=== PATIENT | female | born 1985 | race Caucasian/White ===

== ENCOUNTER 2016-04-29 20:17 | Emergency (ER) | payer OTHER ==
[2016-04-29] MEDS ORDERED: diphenhydrAMINE INJ 50 MG/ML VIAL IVP STA (20:32)
[2016-04-29] MEDS ORDERED: KETOROLAC 60 MG/2 ML VIAL IVP STA (20:32)
[2016-04-29] MEDS ORDERED: METOCLOPRAMIDE 10 MG/2 ML VIAL IVP STA (20:32)
[2016-04-29] MEDS ORDERED: SODIUM CHLORIDE 0.9% 1,000 ML IV ONE (20:32)
[2016-04-29] MEDS ORDERED: METOCLOPRAMIDE 10 MG/2 ML VIAL IVP ONE (20:40)
[2016-04-29] MEDS ORDERED: KETOROLAC 30 MG/ML VIAL ONE (20:40)
[2016-04-29] MEDS ORDERED: diphenhydrAMINE INJ 50 MG/ML VIAL ONE (20:40)
== END 2016-04-29 22:45 | disposition home or self-care (01) ==
DX: B34.9 Viral infection, unspecified (principal); K21.9 Gastro-esophageal reflux disease without esophagitis; F32.9 Major depressive disorder, single episode, unspecified; F41.9 Anxiety disorder, unspecified; L30.9 Dermatitis, unspecified; Z79.899 Other long term (current) drug therapy; Z32.02 Encounter for pregnancy test, result negative

== ENCOUNTER 2017-04-04 19:46 | Emergency (ER) | payer OTHER ==
[2017-04-04 20:03] LABS: BILIRUBIN,URINE NEGATIVE (NEGATIVE); GLUCOSE, URINE (UA) NEGATIVE (NEGATIVE); KETONES,URINE (UA) NEGATIVE (NEGATIVE); LEUKOCYTE ESTERASE, URINE NEGATIVE (NEGATIVE); NITRITE,URINE NEGATIVE (NEGATIVE); OCCULT BLOOD,URINE NEGATIVE (NEGATIVE); PROTEIN,URINE NEGATIVE (NEGATIVE); UROBILINOGEN,URINE 0.2 (NORMAL) E.U./dL (NORMAL)
[2017-04-04 20:11] LABS: CLARITY,URINE CLEAR (CLEAR); HCG UR QUAL NEGATIVE
[2017-04-04] MEDS ORDERED: KETOROLAC 60 MG/2 ML VIAL IVP STA (20:28)
[2017-04-04 20:32] LABS: BASOPHILS % (AUTO) 0.4 %; EOSINOPHILS # (AUTO) 0.1 10^3/uL (0.0-0.7); EOSINOPHILS % (AUTO) 2.8 %; HGB - HEMOGLOBIN 11.9 g/dL (12.0-16.0); LYMPHOCYTES # (AUTO) 1.2 10^3/uL (1.5-3.5); LYMPHOCYTES % (AUTO) 31.8 %; MEAN CORPUSCULAR HEMOGLOBIN 30.5 pg (27.0-31.0); MEAN CORPUSCULAR HGB CONC 33.4 g/dL (32.0-36.0); MEAN CORPUSCULAR VOLUME 91.6 fL (81.0-99.0); MEAN PLATELET VOLUME 9.2 fL (7.9-10.8); MONOCYTES # (AUTO) 0.5 10^3/uL (0.0-1.0); MONOCYTES % (AUTO) 13.1 %; NEUTROPHILS % (AUTO) 51.9 %; PLT - PLATELET COUNT 152 10^3/uL (130-450); RED BLOOD COUNT 3.89 10^6/uL (4.20-5.40); RED CELL DISTRIBUTION WIDTH 12.5 % (12.0-15.0); WHITE BLOOD COUNT 3.9 x10^3/uL (4.8-10.8)
[2017-04-04 20:41] LABS: ALBUMIN 4.4 g/dL (3.2-5.5); ALBUMIN/GLOBULIN RATIO 1.3 (1.0-2.2); BILIRUBIN,TOTAL 0.2 mg/dL (0.2-1.0); CALCIUM 9.4 mg/dL (8.5-10.3); CREATININE 0.9 mg/dL (0.4-1.0); TOTAL PROTEIN 7.9 g/dL (6.7-8.2)
[2017-04-04] MEDS ORDERED: IOPAMIDOL-300 100 ML VIAL ONE (20:53)
[2017-04-04] MEDS ORDERED: IOPAMIDOL-300 100 ML VIAL IVP ONE (21:04)
--- NOTE | 2017-04-04 21:13 | ED Physician Documentation ---
PD HPI ABD PAIN - Stated complaint Stated Complaint: ABD PX - Chief complaint Chief Complaint: Abd Pain - History obtained from History obtained from: Patient - History of Present Illness Timing - onset: Chronic Timing - details: Gradual onset, Still present Quality: Cramping, Aching Location: Periumbilical Worsened by: Position, Palpation Associated symptoms: Nausea. No: Fever, Vomiting, Diarrhea, Constipation Similar symptoms before: No diagnosis Recently seen: Not recently seen - Additional information Additional information: Patient is a 31 year old female with a history of anxiety and depression who is presenting to the emergency department for a one year history of intermittent abdominal pain. patient states that the pain comes and goes. she also reports a 50 lb weight loss over the last year. Patient reports that she has a family history of multiple cancers. Patient has gone to the [facility] multiple times but she reports they tell her its gas and send her home. Patient reports that tonight she felt like her abdomen was distended and that her belly button was sticking out so she cam in tonight. Review of Systems Constitutional: denies: Fever, Chills Eyes: reports: Reviewed and negative Ears: reports: Reviewed and negative Nose: reports: Reviewed and negative Throat: reports: Reviewed and negative Cardiac: denies: Chest pain / pressure, Palpitations Respiratory: denies: Dyspnea, Cough, Wheezing GI: reports: Abdominal Pain, Abdominal Swelling, Nausea. denies: Vomiting, Constipation, Diarrhea : denies: Dysuria, Frequency, Hesitancy Skin: reports: Lesions Musculoskeletal: denies: Neck pain, Back pain, Extremity pain Neurologic: denies: Generalized weakness, Focal weakness Psychiatric: reports: Depressed, Anxiety Endocrine: reports: Weight loss Immunocompromised: denies: Immunocompromised PD PAST MEDICAL HISTORY - Past Medical History Past Medical History: Yes Cardiovascular: None Respiratory: Asthma Neuro: None Endocrine/Autoimmune: None GI: GERD : None HEENT: None Psych: Depression, Anxiety Musculoskeletal: Chronic back pain Derm: Eczema - Past Surgical History Past Surgical History: No - Present Medications Home Medications: Ambulatory Orders Medication Instructions Recorded Confirmed Fexofenadine HCl [Linda Allergy] 180 mg PO DAILY 09/13/15 04/04/17 Bcp 1 tab PO DAILY 04/04/17 Buspirone HCl 1 tab PO DAILY 04/04/17 04/04/17 Citalopram Hydrobromide 1 tab PO DAILY 04/04/17 04/04/17 [Citalopram HBr] Esomeprazole Magnesium 1 cap PO DAILY 04/04/17 04/04/17 Ondansetron Odt [Zofran] 4 mg TL Q6H PRN #20 tablet 04/04/17 Sulfamethoxazole/Trimethoprim 1 tab PO BID 04/04/17 04/04/17 [Sulfamethoxazole-Tmp Ds Tablet] raNITIdine [Zantac] 1 tab PO DAILY 04/04/17 04/04/17 - Allergies Allergies/Adverse Reactions: Allergies Allergy/AdvReac Type Severity Reaction Status Date / Time Latex, Natural Rubber Allergy Intermediate Rash Verified 04/04/17 19:51 Penicillins Allergy Intermediate Emesis Verified 04/04/17 19:51 Tetanus Vaccines and Toxoid Allergy Intermediate Hives Verified 04/04/17 19:51 [Tetanus Vaccines & Toxoid] tioconazole [From Monistat 1] Allergy Intermediate Itching Verified 04/04/17 19: 51 - Social History Does the pt smoke?: No Smoking Status: Never smoker Does the pt drink ETOH?: No Does the pt have substance abuse?: No - Immunizations Immunizations are current?: Yes - POLST Patient has POLST: No PD ED PE NORMAL - Vitals Vital signs reviewed: Yes - General General: Alert and oriented X 3, No acute distress - HEENT HEENT: Atraumatic - Neck Neck: Supple, no meningeal sign - Cardiac Cardiac: RRR, No murmur - Respiratory Respiratory: No respiratory distress - Abdomen Abdomen: Soft - Extremities Extremities: No deformity - Neuro Neuro: Alert and oriented X 3, No motor deficit, No sensory deficit, Normal speech Eye Opening: Spontaneous Motor: Obeys Commands Verbal: Oriented GCS Score: 15 PD ED PE EXPANDED - Abdomen Abdomen: Tender to palpation, Periumbilical, Generalized/diffuse. No: Rebound, Guarding - Derm Derm: Other (acne all over patient's back, no superimposed infection) Results - Vitals Vitals: Vital Signs - 24 hr 04/04/17 04/04/17 19:49 21:20 Temperature 37.2 C Heart Rate 84 81 Respiratory 18 16 Rate Blood Pressure 155/93 H 130/76 O2 Saturation 100 100 Oxygen O2 Source Room air - Labs Labs: Laboratory Tests 04/04/17 04/04/17 04/04/17 20:00 20:00 20:01 WBC 3.9 L RBC 3.89 L Hgb 11.9 L Hct 35.6 L MCV 91.6 MCH 30.5 MCHC 33.4 RDW 12.5 Plt Count 152 MPV 9.2 Neut # 2.0 Lymph # 1.2 L York # 0.5 Eos # 0.1 Baso # 0.0 Absolute Nucleated RBC 0.00 Nucleated RBC % 0.0 Sodium Potassium Chloride Carbon Dioxide Anion Gap BUN Creatinine Estimated GFR (MDRD) Glucose Calcium Total Bilirubin AST ALT Alkaline Phosphatase Total Protein Albumin Globulin Albumin/Globulin Ratio Lipase Urine Color STRAW Urine Clarity CLEAR Urine pH 6.0 Ur Specific Sanborn 1.010 1.010 Urine Protein NEGATIVE Urine Glucose (UA) NEGATIVE Urine Ketones NEGATIVE Urine Occult Blood NEGATIVE Urine Nitrite NEGATIVE Urine Bilirubin NEGATIVE Urine Urobilinogen 0.2 (NORMAL) Ur Leukocyte Esterase NEGATIVE Ur Microscopic Review NOT INDICATED Urine Culture Comments NOT INDICATED Urine HCG, Qual NEGATIVE 04/04/17 20:01 WBC RBC Hgb Hct MCV MCH MCHC RDW Plt Count MPV Neut # Lymph # York # Eos # Baso # Absolute Nucleated RBC Nucleated RBC % Sodium 136 Potassium 3.4 L Chloride 99 L Carbon Dioxide 24 Anion Gap 13.0 BUN 10 Creatinine 0.9 Estimated GFR (MDRD) 73 L Glucose 113 H Calcium 9.4 Total Bilirubin 0.2 AST 26 ALT 17 Alkaline Phosphatase 51 Total Protein 7.9 Albumin 4.4 Globulin 3.5 Albumin/Globulin Ratio 1.3 Lipase 21 L Urine Color Urine Clarity Urine pH Ur Specific Sanborn Urine Protein Urine Glucose (UA) Urine Ketones Urine Occult Blood Urine Nitrite Urine Bilirubin Urine Urobilinogen Ur Leukocyte Esterase Ur Microscopic Review Urine Culture Comments Urine HCG, Qual - Rads (name of study) ct abd pelvis Radiology: Final report received (simple cyst or left ovary, no other intraabdominal pathology) PD MEDICAL DECISION MAKING - ED course Complexity details: reviewed old records, reviewed results, re-evaluated patient , considered differential, d/w patient ED course: patient was seen and examined at bedside. IV access was gained and labs were drawn. Urine was collected. patient was treated with toradol and imaging was ordered. Patient's pain improved with the toradol. Patient's imaging showed no acute abnormalities. Patient's pain is likely at least in part somatization of her stress and anxiety. patient was tearful when talking about raising three kids and working. Patient required no further work up and was stable for discharge with outpatient follow up. Departure - Departure Disposition: 01 Home, Self Care Clinical Impression: Abdominal pain Condition: Good Instructions: ED Abdominal Pain Unkn Cause Follow-Up: Jay Jay Crowell MD [Provider Admit Priv/Credential] - Within 1 week Prescriptions: Ondansetron Odt [Zofran] 4 mg TL Q6H PRN #20 tablet PRN Reason: Nausea / Vomiting Comments: Your diagnostics today were within normal limits. The next step in testing would be a colonoscopy. You should follow up with your doctor and see if you can follow up with a GI doctor. If not you can call Dr. Hu' office to schedule a colonoscopy. Your symptoms are also at least in part related to stress and anxiety. While I understand that it is hard to take time for yourself and counseling it is important.
--- NOTE | 2017-04-04 21:38 | CT Report ---
EXAM: CT ABDOMEN AND PELVIS EXAM DATE: 04/04/2017 09:15 PM. CLINICAL HISTORY: Abd pain, 50lb weight loss, family hx of breast ca. COMPARISONS: 01/27/2014. TECHNIQUE: Routine helical CT imaging was performed through the abdomen and pelvis. IV contrast: 100M L ISOVUE 300. Enteric contrast: No. Reconstructions: Coronal and sagittal. In accordance with CT protocol optimization, one or more of the following dose reduction techniques w ere utilized for this exam: automated exposure control, adjustment of mA and/or KV based on patient s ize, or use of iterative reconstructive technique. FINDINGS: Lung Bases: Unremarkable. Liver: Normal. No masses. Gallbladder/Bile Ducts: Unremarkable. Spleen: Normal. Pancreas: Normal. Adrenal Glands: Normal. Kidneys: Normal. No masses or hydronephrosis. Peritoneal Cavity/Bowel: No free fluid, free air or adenopathy. No masses or acute inflammatory proce ss. The appendix is well visualized and normal. Pelvic Organs: Cystic left adnexal lesion measuring 7.3 x 4.1 x 5.1 cm. No internal septations or nod ularity. Retroverted uterus. Right adnexa is unremarkable. Urinary bladder not well distended but oth erwise unremarkable. Vasculature: No aneurysms or other significant abnormality. Bones: No significant abnormality. Other: None. IMPRESSION: 1. No acute abnormality or definite neoplasm. 2. Simple appearing cystic left adnexal lesion measuring 7.3 x 4.1 x 5.1 cm. Recommend further evalua tion with ultrasound. [facility] Referring Provider Line: [phone] SITE ID: [id number]
[2017-04-04 22:15] VITALS: BP 124/86
== END 2017-04-04 22:20 | disposition home or self-care (01) ==
LOC: ED 19:46
DX: R10.33 Periumbilical pain (principal); R63.4 Abnormal weight loss; R11.0 Nausea; F41.9 Anxiety disorder, unspecified; F32.9 Major depressive disorder, single episode, unspecified; J45.909 Unspecified asthma, uncomplicated; K21.9 Gastro-esophageal reflux disease without esophagitis
CPT/HCPCS: 36415; 74177; 80053; 81003; 81025; 83690; 85025; 96374; 99283; 99284; Q9967; 81001; 84702; 87086

== ENCOUNTER 2017-04-29 10:10 | Emergency (ER) | payer OTHER ==
[2017-04-29 10:17] VITALS: BP 140/87
[2017-04-29] MEDS ORDERED: DEXAMETHASONE 10 MG/ML VIAL PO STA (10:27)
--- NOTE | 2017-04-29 10:29 | ED Physician Documentation ---
PD HPI URI - Stated complaint Stated Complaint: HEAD CONGESTION - Chief complaint Chief Complaint: Heent - History obtained from History obtained from: Patient - History of Present Illness Timing - onset: How many days ago (3) Timing duration: Days (3) Timing details: Gradual onset Pain level max: 6 Pain level now: 5 Associated symptoms: Fever (subjective), Ear pain (L ear), Nasal congestion, Sinus pain, Sore throat. No: Dry cough, Productive cough, Chest pain, Dyspnea Contributing factors: Sick contact Improves by: Rest Worsened by: Activity, Breathing Similar symptoms before: Has not had sx before Recently seen: Not recently seen Review of Systems Ears: reports: Ear pain Nose: reports: Rhinorrhea / runny nose, Congestion Throat: reports: Sore throat GI: denies: Vomiting, Diarrhea : denies: Now EGA Skin: denies: Rash Musculoskeletal: denies: Neck pain, Back pain Neurologic: denies: Headache PD PAST MEDICAL HISTORY - Past Medical History Cardiovascular: None Respiratory: Asthma Neuro: None Endocrine/Autoimmune: None GI: GERD : None HEENT: None Psych: Depression, Anxiety Musculoskeletal: Chronic back pain Derm: Eczema - Past Surgical History Past Surgical History: No - Present Medications Home Medications: Ambulatory Orders Medication Instructions Recorded Confirmed Fexofenadine HCl [Linda Allergy] 180 mg PO DAILY 09/13/15 04/04/17 Buspirone HCl 1 tab PO DAILY 04/04/17 04/04/17 Citalopram Hydrobromide 1 tab PO DAILY 04/04/17 04/04/17 [Citalopram HBr] Esomeprazole Magnesium 1 cap PO DAILY 04/04/17 04/04/17 Ondansetron Odt [Zofran] 4 mg TL Q6H PRN #20 tablet 04/04/17 Sulfamethoxazole/Trimethoprim 1 tab PO BID 04/04/17 04/04/17 [Sulfamethoxazole-Tmp Ds Tablet] raNITIdine [Zantac] 1 tab PO DAILY 04/04/17 04/04/17 Clindamycin HCl [Clindamycin 300MG 300 mg PO Q6H #28 capsule 04/29/17 CAP] - Allergies Allergies/Adverse Reactions: Allergies Allergy/AdvReac Type Severity Reaction Status Date / Time Latex, Natural Rubber Allergy Intermediate Rash Verified 04/29/17 10:17 Penicillins Allergy Intermediate Emesis Verified 04/29/17 10:17 Tetanus Vaccines and Toxoid Allergy Intermediate Hives Verified 04/29/17 10:17 [Tetanus Vaccines & Toxoid] tioconazole [From Monistat 1] Allergy Intermediate Itching Verified 04/29/17 10: 17 - Social History Does the pt smoke?: No Smoking Status: Never smoker Does the pt drink ETOH?: No Does the pt have substance abuse?: No - Immunizations Immunizations are current?: Yes - POLST Patient has POLST: No PD ED PE NORMAL - Vitals Vital signs reviewed: Yes - General General: Alert and oriented X 3 - HEENT HEENT: PERRL, Ears normal, Moist mucous membranes, Other (Moderate posterior oropharyngeal erythema with copious tonsillar exudates. Uvula midline. Normal phonation. No trismus) - Neck Neck: Supple, no meningeal sign, Other (Shotty anterior lymphadenopathy) - Cardiac Cardiac: RRR - Respiratory Respiratory: No respiratory distress, Clear bilaterally - Abdomen Abdomen: Soft, Non tender, Non distended - Derm Derm: Warm and dry - Neuro Neuro: Alert and oriented X 3 - Psych Psych: Normal mood, Normal affect Results - Vitals Vitals: Vital Signs - 24 hr 04/29/17 10:14 Temperature 37.3 C Heart Rate 89 Respiratory 18 Rate Blood Pressure 140/87 H O2 Saturation 100 Oxygen O2 Source Room air - Labs Labs: Laboratory Tests 04/29/17 10:20 Group A Strep Rapid Negative PD MEDICAL DECISION MAKING - ED course Complexity details: reviewed results, re-evaluated patient, considered differential, d/w patient ED course: Patient is a 31-year-old female who presents to the emergency department with what appears to be streptococcal pharyngitis. Will place on clindamycin for home. Rapid strep is negative, but given the poor sensitivity and specificity of this test, will still treat with antibiotics. Patient counseled regarding signs and symptoms for which I believe and urgent re-evaluation would be necessary. Patient with good understanding of and agreement to plan and is comfortable going home at this time This document was made in part using voice recognition software. While efforts are made to proofread this document, sound alike and grammatical errors may occur. Departure - Departure Disposition: 01 Home, Self Care Clinical Impression: Strep pharyngitis Condition: Good Instructions: ED Strep Pharyngitis Poss Follow-Up: your,doctor in 1 week [Other] Prescriptions: Clindamycin HCl [Clindamycin 300MG CAP] 300 mg PO Q6H #28 capsule Comments: Take all antibiotics until gone. Return if you worsen. Forms: Activity restrictions Discharge Date/Time: 04/29/17 10:42
[2017-04-29] MEDS ORDERED: CHERRY SYRUP 10 ML UDC PO ONE (10:38)
== END 2017-04-29 10:42 | disposition home or self-care (01) ==
LOC: ED 10:10
DX: J02.0 Streptococcal pharyngitis (principal)
CPT/HCPCS: 87070; 87430; 99281; 99283; A9270

== ENCOUNTER 2017-04-30 19:36 | Emergency (ER) | payer OTHER, MEDICAID ==
[2017-04-30 19:43] VITALS: BP 138/89
[2017-04-30] MEDS ORDERED: diphenhydrAMINE 25 MG CAPSULE PO STA (21:31)
--- NOTE | 2017-04-30 21:33 | ED Physician Documentation ---
History of Present Illness - Stated complaint Stated Complaint: POSS ALLERGIC REACTION - Chief complaint Chief Complaint: Allergic Rx - History obtained from History obtained from: Patient - History of Present Illness Timing: Other (Seen here yesterday for symptoms consisting of a Left-sided sore throat, eye irritation on the left. Rapid strep and culture were negative. She was started on clindamycin and shortly after starting it developed itching of the neck and face without increased throat swelling or shortness of breath or wheezing. She had never had that antibiotic before.) Review of Systems Constitutional: denies: Fever, Chills Eyes: reports: Discharge, Irritation. denies: Loss of vision, Decreased vision Ears: denies: Loss of hearing, Ear pain Nose: reports: Rhinorrhea / runny nose, Congestion Throat: reports: Sore throat PD PAST MEDICAL HISTORY - Past Medical History Past Medical History: Yes Cardiovascular: None Respiratory: Asthma Neuro: None Endocrine/Autoimmune: None GI: GERD : None HEENT: None Psych: Depression, Anxiety Musculoskeletal: Chronic back pain Derm: Eczema Other Past Medical History: epigastric hernia ( having surgery on May 22) - Past Surgical History Past Surgical History: Yes - Present Medications Home Medications: Ambulatory Orders Medication Instructions Recorded Confirmed Fexofenadine HCl [Linda Allergy] 180 mg PO DAILY 09/13/15 04/04/17 Buspirone HCl 1 tab PO DAILY 04/04/17 04/04/17 Citalopram Hydrobromide 1 tab PO DAILY 04/04/17 04/04/17 [Citalopram HBr] Esomeprazole Magnesium 1 cap PO DAILY 04/04/17 04/04/17 Ondansetron Odt [Zofran] 4 mg TL Q6H PRN #20 tablet 04/04/17 Sulfamethoxazole/Trimethoprim 1 tab PO BID 04/04/17 04/04/17 [Sulfamethoxazole-Tmp Ds Tablet] raNITIdine [Zantac] 1 tab PO DAILY 04/04/17 04/04/17 Clindamycin HCl [Clindamycin 300MG 300 mg PO Q6H #28 capsule 04/29/17 CAP] - Allergies Allergies/Adverse Reactions: Allergies Allergy/AdvReac Type Severity Reaction Status Date / Time Latex, Natural Rubber Allergy Intermediate Rash Verified 04/30/17 19:44 Penicillins Allergy Intermediate Emesis Verified 03/08/18 19:44 Tetanus Vaccines and Toxoid Allergy Intermediate Hives Verified 04/30/17 19:44 [Tetanus Vaccines & Toxoid] tioconazole [From Monistat 1] Allergy Intermediate Itching Verified 04/30/17 19: 44 - Social History Does the pt smoke?: No Smoking Status: Never smoker Does the pt drink ETOH?: No Does the pt have substance abuse?: No - Immunizations Immunizations are current?: Yes - POLST Patient has POLST: No PD ED PE NORMAL - Vitals Vital signs reviewed: Yes - General General: Alert and oriented X 3, No acute distress - HEENT HEENT: Other (red conjunctiva on left without dischg. Tonsillar pillar especially on the left is red with tonsillar crypts.) - Neck Neck: Supple, no meningeal sign, No bony TTP - Derm Derm: No rash - Neuro Neuro: Alert and oriented X 3, Normal speech Results - Vitals Vitals: Vital Signs - 24 hr 04/30/17 19:41 Temperature 36.4 C L Heart Rate 87 Respiratory 18 Rate Blood Pressure 138/89 H O2 Saturation 100 Oxygen O2 Source Room air PD MEDICAL DECISION MAKING - ED course ED course: Strep test is negative so she can stop the antibiotics. Seems more like adenovirus at this juncture. Benadryl as needed for the itching. Departure - Departure Disposition: 01 Home, Self Care Clinical Impression: Viral syndrome Condition: Good Record reviewed to determine appropriate education?: Yes Instructions: ED Pharyngitis Viral Comments: Benadryl [id number] as needed for the itching. Do not take the antibiotic Anymore. Return if worse.
== END 2017-04-30 21:37 | disposition home or self-care (01) ==
LOC: ED 19:36
DX: B34.9 Viral infection, unspecified (principal)
CPT/HCPCS: 99282; A9270

== ENCOUNTER 2017-05-11 07:36 | Day surgery (SDC) | payer OTHER, MEDICAID ==
[2017-05-11] MEDS ORDERED: ceFAZolin 2 GM/50 ML 2 GM/50 ML BAG IV ONE (07:50)
[2017-05-11 08:05] LABS: HCG UR QUAL NEGATIVE
[2017-05-11] MEDS ORDERED: LACTATED RINGERS 1,000 ML IV ONE ×4 (08:20→12:54)
[2017-05-11] MEDS ORDERED: SCOPOLAMINE PATCH TOP ONE (08:34)
[2017-05-11] MEDS ORDERED: BUPIVACAINE 0.5%-EPI 1:200000 PF 10 ML VIAL ONE (08:38)
[2017-05-11] MEDS ORDERED: CLINDAMYCIN 600 MG/50 ML 50 ML IV ONE (09:49)
[2017-05-11] MEDS ORDERED: BUPIVACAINE 0.5%-EPI 1:200000 PF 30 ML VIAL SUBQ ONE ×2 (09:54→10:08)
[2017-05-11] MEDS ORDERED: ONDANSETRON 4 MG/2 ML VIAL IVP ONE (10:02)
[2017-05-11] MEDS ORDERED: GLYCOPYRROLATE 1 MG/5 ML VIAL IVP ONE (10:02)
[2017-05-11] MEDS ORDERED: LIDOCAINE-MPF 2% 5 ML VIAL IM ONE (10:02)
[2017-05-11] MEDS ORDERED: NEOSTIGMINE 1 MG/1 ML 10 ML MDV IVP ONE (10:02)
[2017-05-11] MEDS ORDERED: PROPOFOL 200 MG/20 ML VIAL IVP ONE (10:02)
[2017-05-11] MEDS ORDERED: fentaNYL 250 MCG/5 ML VIAL IVP ONE (10:02)
[2017-05-11] MEDS ORDERED: ROCURONIUM 50 MG/5 ML VIAL IVP ONE (10:02)
[2017-05-11] MEDS ORDERED: fentaNYL 100 MCG/2 ML VIAL ONE (10:41)
--- NOTE | 2017-05-11 10:55 | OPERATIVE REPORT ---
Operative Report - General Procedure Date: 05/11/17 Planned Procedure: repair of epigastric hernia Pre-Op Diagnosis: epigastric hernia Procedure Performed: Repair of epigastric hernia - Procedure Note Primary Surgeon: Dominik Anesthesia Provider: Dr. Chang Anesthesia Technique: General LMA - Other Other Information/Narrative: Findings: After obtaining informed consent from the patient she was brought into the operating room position on the operating table in the prone supine position taking noted pressure points. The patient was intubated by anesthesia. She was administered perioperative antibiotics. She was prepped and draped in usual sterile fashion and a timeout was taken according to protocol. An epigastric 3 cm incision was created just above the umbilicus. This was deepened down through the subcutaneous tissue until the epigastric hernia was encountered. The hernia sac was circumferentially dissected from the surrounding fatty tissue. This was performed circumferentially down to level of the fascia. The hernia was then completely reduced and the hernia defect was noted to be less than a centimeter in diameter. The anterior fascia was cleared from fatty tissue circumferentially approximately 1 cm. The defect was then closed primarily with a [id number] #2 Prolene suture. A small defect just at the umbilicus was also closed in a similar fashion with a #2 figure-of- eight Prolene suture. The subcutaneous tissue was irrigated and hemostasis achieved with electrocautery. 30 cc of lidocaine was injected in the soft tissue and fascia. The subcutaneous tissue was closed with 3-0 Vicryl and the skin was closed with 4-0 Monocryl. Dermabond was applied. The patient was extubated and taken to recovery room in stable condition. Estimated blood loss: Minimal Complications: None Specimens: None
[2017-05-11] MEDS ORDERED: KETOROLAC 30 MG/ML VIAL ONE (11:00)
[2017-05-11] MEDS ORDERED: ONDANSETRON 4 MG/2 ML VIAL ONE (11:11)
[2017-05-11 13:40] VITALS: BP 118/79
== END 2017-05-11 07:37 | disposition home or self-care (01) ==
LOC: SDS 07:36
PROVIDERS: ATTEND Surgery
PROC: 0WQF0ZZ Repair Abdominal Wall, Open Approach (ICD-10-PCS; principal; 2017-05-11 08:45)
DX: K43.9 Ventral hernia without obstruction or gangrene (principal); D41.9 Neoplasm of uncertain behavior of unspecified urinary organ; J45.909 Unspecified asthma, uncomplicated
CPT/HCPCS: 49560; 81025; J0690; J3010; J3490; J7120

== ENCOUNTER 2017-05-17 09:43 | Emergency (ER) | payer OTHER, MEDICAID ==
[2017-05-17 09:57] VITALS: BP 127/90
[2017-05-17] MEDS ORDERED: HYDROmorphone 1 MG/ML CARPUJECT IM STA (10:12)
--- NOTE | 2017-05-17 10:14 | ED Physician Documentation ---
History of Present Illness - Stated complaint Stated Complaint: POST OP COMP - Chief complaint Chief Complaint: Abd Pain - History obtained from History obtained from: Patient - History of Present Illness Timing: How many days ago (2) Pain level max: 8 Pain level now: 8 Improved by: nothing Worsened by: palpation - Additonal information Additional information: Patient is a 31-year-old female who presents to the emergency department approximately 6 days status post a abdominal hernia repair. She ran out of her Percocet 2 days ago and has had increasing pain since that time. No fevers. No vomiting. No constipation. No diarrhea. Pain is localized to the incision site. Has an appointment in 2-3 weeks with her surgeon. Review of Systems Constitutional: denies: Fever, Chills Nose: denies: Rhinorrhea / runny nose, Congestion Throat: denies: Sore throat Cardiac: denies: Chest pain / pressure Respiratory: denies: Cough GI: denies: Nausea, Vomiting, Diarrhea : denies: Dysuria, Frequency, Hesitancy, Now EGA Skin: denies: Rash Musculoskeletal: denies: Neck pain, Back pain Neurologic: denies: Headache PD PAST MEDICAL HISTORY - Past Medical History Cardiovascular: None Respiratory: Asthma Neuro: None Endocrine/Autoimmune: None GI: GERD, Other : None HEENT: None Psych: Depression, Anxiety, Panic attacks, Claustrophobia Musculoskeletal: None Derm: Psoriasis, Other - Past Surgical History Past Surgical History: Yes - Present Medications Home Medications: Ambulatory Orders Medication Instructions Recorded Confirmed Fexofenadine HCl [Linda Allergy] 180 mg PO DAILY 09/13/15 05/11/17 Buspirone HCl 1 tab PO DAILY 04/04/17 05/11/17 Citalopram Hydrobromide 1 tab PO DAILY 04/04/17 05/11/17 [Citalopram HBr] Esomeprazole Magnesium 1 cap PO DAILY 04/04/17 05/11/17 Ondansetron Odt [Zofran] 4 mg TL Q6H PRN #20 tablet 04/04/17 05/11/17 raNITIdine [Zantac] 1 tab PO DAILY 04/04/17 05/11/17 Norethindrone-Ethinyl Estrad 1 tab PO DAILY 05/06/17 05/11/17 [Alyacen 1-35-28 Tablet] Oxycodone HCl/Acetaminophen 1 - 2 each PO Q6H PRN #20 tablet 05/17/17 [Percocet 5-325 mg Tablet] - Allergies Allergies/Adverse Reactions: Allergies Allergy/AdvReac Type Severity Reaction Status Date / Time Latex, Natural Rubber Allergy Intermediate Rash Verified 04/30/17 19:44 Penicillins Allergy Intermediate Emesis Verified 04/30/17 19:44 Tetanus Vaccines and Toxoid Allergy Intermediate Hives Verified 04/30/17 19:44 [Tetanus Vaccines & Toxoid] tioconazole [From Monistat 1] Allergy Intermediate Itching Verified 04/30/17 19: 44 clindamycin Allergy Itching Verified 05/06/17 15:57 adhesive AdvReac Rash Verified 05/11/17 08:01 - Social History Does the pt smoke?: No Smoking Status: Never smoker Does the pt drink ETOH?: No Does the pt have substance abuse?: No - Immunizations Immunizations are current?: Yes - POLST Patient has POLST: No PD ED PE NORMAL - Vitals Vital signs reviewed: Yes - General General: Alert and oriented X 3, No acute distress, Well developed/nourished - HEENT HEENT: PERRL, Moist mucous membranes - Neck Neck: Supple, no meningeal sign - Cardiac Cardiac: RRR - Respiratory Respiratory: No respiratory distress, Clear bilaterally - Abdomen Abdomen: Normal bowel sounds, Soft, Non distended, Other (Mild tenderness palpation around the incision. Incisions clean dry and intact without signs of infection. No peritoneal signs. No swelling.) - Derm Derm: Warm and dry - Extremities Extremities: No edema, No calf tenderness / cord - Neuro Neuro: Alert and oriented X 3 - Psych Psych: Normal mood, Normal affect Results - Vitals Vitals: Vital Signs - 24 hr 05/17/17 09:55 Temperature 36.8 C Heart Rate 105 H Respiratory 20 Rate Blood Pressure 127/90 H O2 Saturation 99 Oxygen O2 Source Room air PD MEDICAL DECISION MAKING - ED course Complexity details: considered differential, d/w patient ED course: Patient is a 31-year-old female who has run out of her pain medications postoperatively. Her exam is relatively benign and is following the expected course for her surgery. I discussed the case with Dr. Crowell, general surgery on-call who recommends refilling her Percocet and follow-up closely in the office. Patient counseled regarding signs and symptoms for which I believe and urgent re-evaluation would be necessary. Patient with good understanding of and agreement to plan and is comfortable going home at this time This document was made in part using voice recognition software. While efforts are made to proofread this document, sound alike and grammatical errors may occur. Departure - Departure Disposition: 01 Home, Self Care Clinical Impression: Post-operative pain Condition: Good Instructions: ED Post Op Pain Follow-Up: ROOSEVELT LEHMAN MD [Provider Admit Priv/Credential] - Within 3 Days Prescriptions: Oxycodone HCl/Acetaminophen [Percocet 5-325 mg Tablet] 1 - 2 each PO Q6H PRN # 20 tablet PRN Reason: pain Comments: Follow-up closely with Dr. Lehman for further evaluation. Return if you worsen. Return especially for fevers, vomiting or pain that is not controlled with your medications. Do not drink alcohol or drive while on narcotic pain medicine. Note that many narcotic pain relievers also contain tylenol/acetaminophen. Please ensure that your total dose of acetaminophen from all sources does not exceed 3 grams (3000mg) per day. You may constipated on this medication, take a stool softener such as "Colace" twice a day while you are on it. Also recommend a amvy-qys-wojbzmr laxative such as senna or MiraLAX any day that you do not have a bowel movement. If you received narcotic pain medication in the emergency department, do not drive or operate machinery for the next 24 hours. Discharge Date/Time: 05/17/17 10:35
== END 2017-05-17 10:35 | disposition home or self-care (01) ==
LOC: ED 09:43
DX: G89.18 Other acute postprocedural pain (principal); Z76.0 Encounter for issue of repeat prescription; J45.909 Unspecified asthma, uncomplicated; K21.9 Gastro-esophageal reflux disease without esophagitis
CPT/HCPCS: 96372; 99283; J1170

== ENCOUNTER 2017-07-08 20:17 | Emergency (ER) | payer OTHER, MEDICAID ==
--- NOTE | 2017-07-08 20:44 | ED Physician Documentation ---
PD HPI ABD PAIN - Stated complaint Stated Complaint: ABD PX - Chief complaint Chief Complaint: Abd Pain - History obtained from History obtained from: Patient - History of Present Illness Timing - onset: Enter time (17:00), Today Timing - duration: Hours Timing - details: Abrupt onset, Waxing and waning Pain level now: 6 Quality: Pain Location: Epigastric, LUQ, Periumbilical Radiation: No: Chest, , Lower back, Left flank, Left shoulder, Right flank, Right shoulder, Upper back Improved by: Laying still Worsened by: Moving (particularly sitting up) Associated symptoms: Nausea. No: Fever, Vomiting, Diarrhea, Constipation, Dysuria Similar symptoms before: Other (similar to pain she was experiencing associated with epigastric hernia (repaired April 2017)) Recently seen: Surgery (Epigastric hernia repair April 2017) Review of Systems Constitutional: denies: Fever, Chills, Sweats Cardiac: reports: Reviewed and negative Respiratory: reports: Reviewed and negative GI: reports: Abdominal Pain, Nausea. denies: Vomiting, Constipation, Diarrhea : denies: Dysuria, Frequency Musculoskeletal: denies: Back pain PD PAST MEDICAL HISTORY - Past Medical History Cardiovascular: None Respiratory: Asthma Endocrine/Autoimmune: None GI: GERD, Other : None HEENT: None Psych: Depression, Anxiety, Panic attacks, Claustrophobia Musculoskeletal: None Derm: Psoriasis, Other - Past Surgical History Past Surgical History: Yes - Present Medications Home Medications: Ambulatory Orders Medication Instructions Recorded Confirmed Fexofenadine HCl [Linda Allergy] 180 mg PO DAILY 09/13/15 05/11/17 Buspirone HCl 1 tab PO DAILY 04/04/17 05/11/17 Citalopram Hydrobromide 1 tab PO DAILY 04/04/17 05/11/17 [Citalopram HBr] Esomeprazole Magnesium 1 cap PO DAILY 04/04/17 05/11/17 Ondansetron Odt [Zofran] 4 mg TL Q6H PRN #20 tablet 04/04/17 05/11/17 raNITIdine [Zantac] 1 tab PO DAILY 04/04/17 05/11/17 Norethindrone-Ethinyl Estrad 1 tab PO DAILY 05/06/17 05/11/17 [Alyacen 1-35-28 Tablet] Oxycodone HCl/Acetaminophen 1 - 2 each PO Q6H PRN #20 tablet 05/17/17 [Percocet 5-325 mg Tablet] Ondansetron Odt [Zofran] 4 mg TL Q6H PRN #14 tablet 07/08/17 oxyCODONE/ACET 5/325 [Percocet 5 1 - 2 each PO Q6H PRN #14 tablet 07/08/17 mg/325 mg] - Allergies Allergies/Adverse Reactions: Allergies Allergy/AdvReac Type Severity Reaction Status Date / Time Latex, Natural Rubber Allergy Intermediate Rash Verified 07/08/17 20:26 Penicillins Allergy Intermediate Emesis Verified 07/08/17 20:26 Tetanus Vaccines and Toxoid Allergy Intermediate Hives Verified 07/08/17 20:26 [Tetanus Vaccines & Toxoid] tioconazole [From Monistat 1] Allergy Intermediate Itching Verified 07/08/17 20: 26 clindamycin Allergy Itching Verified 07/08/17 20:26 adhesive AdvReac Rash Verified 07/08/17 20:26 - Social History Does the pt smoke?: No Smoking Status: Never smoker Does the pt drink ETOH?: No Does the pt have substance abuse?: No - Immunizations Immunizations are current?: Yes - POLST Patient has POLST: No PD ED PE NORMAL - Vitals Vital signs reviewed: Yes - General General: Alert and oriented X 3, Well developed/nourished, Other (mild-moderate painful distress) - Cardiac Cardiac: RRR, No murmur - Respiratory Respiratory: No respiratory distress, Clear bilaterally - Abdomen Abdomen: Normal bowel sounds, Soft, Non distended, Other (mild-moderate tenderness superior (cranial) to umbilicus in region of surgical scar. no swelling, no palpable mass) - Back Back: No CVA TTP - Derm Derm: Normal color, Warm and dry Results - Vitals Vitals: Vital Signs - 24 hr 07/08/17 07/08/17 07/08/17 20:24 22:22 23:14 Temperature 36.1 C L Heart Rate 87 77 72 Respiratory 18 18 16 Rate Blood Pressure 150/90 H 142/92 H 142/86 H O2 Saturation 100 99 98 Oxygen O2 Source Room air - Labs Labs: Laboratory Tests 07/08/17 07/08/17 21:15 21:15 WBC 7.2 RBC 4.00 L Hgb 12.1 Hct 36.1 L MCV 90.2 MCH 30.1 MCHC 33.4 RDW 13.9 Plt Count 212 MPV 8.5 Neut # 3.6 Lymph # 3.2 [place] # 0.3 Eos # 0.1 Baso # 0.0 Absolute Nucleated RBC 0.00 Nucleated RBC % 0.0 Sodium 138 Potassium 3.5 Chloride 102 Carbon Dioxide 28 Anion Gap 8.0 BUN 9 Creatinine 0.7 Estimated GFR (MDRD) 98 Glucose 99 Calcium 9.8 Total Bilirubin 0.6 AST 26 ALT 16 Alkaline Phosphatase 49 Total Protein 8.1 Albumin 4.4 Globulin 3.7 Albumin/Globulin Ratio 1.2 Lipase 30 - Rads (name of study) CT A/P Radiology: Prelim report reviewed, See rad report PD MEDICAL DECISION MAKING - ED course Complexity details: reviewed results, re-evaluated patient, considered differential, d/w patient Departure - Departure Disposition: 01 Home, Self Care Clinical Impression: Abdominal pain Condition: Good Instructions: ED Abdominal Pain Unkn Cause Follow-Up: ROSA M PADGETT MD [Primary Care Provider] - Enoch Turpin MD [Provider Admit Priv/Credential] - Prescriptions: Ondansetron Odt [Zofran] 4 mg TL Q6H PRN #14 tablet PRN Reason: Nausea / Vomiting oxyCODONE/ACET 5/325 [Percocet 5 mg/325 mg] 1 - 2 each PO Q6H PRN #14 tablet PRN Reason: Pain Discharge Date/Time: 07/09/17 00:18
[2017-07-08] MEDS ORDERED: ONDANSETRON 4 MG/2 ML VIAL IVP STA ×2 (21:06→22:09)
[2017-07-08] MEDS ORDERED: SODIUM CHLORIDE 0.9% 1,000 ML IV STA (21:06)
[2017-07-08] MEDS ORDERED: fentaNYL 100 MCG/2 ML VIAL IVP STA ×2 (21:07→22:08)
[2017-07-08] MEDS ORDERED: IOPAMIDOL-300 100 ML VIAL ONE (21:22)
[2017-07-08] MEDS ORDERED: IOPAMIDOL-300 50 ML VIAL ONE (21:23)
[2017-07-08 21:24] LABS: BASOPHILS % (AUTO) 0.2 %; EOSINOPHILS # (AUTO) 0.1 10^3/uL (0.0-0.7); EOSINOPHILS % (AUTO) 0.7 %; HGB - HEMOGLOBIN 12.1 g/dL (12.0-16.0); LYMPHOCYTES # (AUTO) 3.2 10^3/uL (1.5-3.5); LYMPHOCYTES % (AUTO) 43.9 %; MEAN CORPUSCULAR HEMOGLOBIN 30.1 pg (27.0-31.0); MEAN CORPUSCULAR HGB CONC 33.4 g/dL (32.0-36.0); MEAN CORPUSCULAR VOLUME 90.2 fL (81.0-99.0); MEAN PLATELET VOLUME 8.5 fL (7.9-10.8); MONOCYTES # (AUTO) 0.3 10^3/uL (0.0-1.0); MONOCYTES % (AUTO) 4.4 %; NEUTROPHILS # (AUTO) 3.6 10^3/uL (1.5-6.6); NEUTROPHILS % (AUTO) 50.8 %; PLT - PLATELET COUNT 212 10^3/uL (130-450); RED CELL DISTRIBUTION WIDTH 13.9 % (12.0-15.0); WHITE BLOOD COUNT 7.2 x10^3/uL (4.8-10.8)
[2017-07-08 21:36] LABS: ALBUMIN 4.4 g/dL (3.2-5.5); ALBUMIN/GLOBULIN RATIO 1.2 (1.0-2.2); BILIRUBIN,TOTAL 0.6 mg/dL (0.2-1.0); CALCIUM 9.8 mg/dL (8.5-10.3); CREATININE 0.7 mg/dL (0.4-1.0); TOTAL PROTEIN 8.1 g/dL (6.7-8.2)
[2017-07-08] MEDS ORDERED: IOPAMIDOL-300 100 ML VIAL IVP ONE (22:47)
[2017-07-08] MEDS ORDERED: IOPAMIDOL-300 50 ML VIAL PO ONE (22:47)
--- NOTE | 2017-07-08 23:08 | CT Report ---
EXAM: CT ABDOMEN AND PELVIS EXAM DATE: 07/08/2017 10:49 PM. CLINICAL HISTORY: Epigastric pain. COMPARISONS: 04/04/2017. TECHNIQUE: Routine helical CT imaging was performed through the abdomen and pelvis. IV contrast: 100M L ISOVUE 300. Enteric contrast: Yes, 50 mL Isovue-300. Reconstructions: Coronal and sagittal. In accordance with CT protocol optimization, one or more of the following dose reduction techniques w ere utilized for this exam: automated exposure control, adjustment of mA and/or KV based on patient s ize, or use of iterative reconstructive technique. FINDINGS: Lung Bases: Unremarkable. Liver: Normal. No focal hepatic lesion. Gallbladder/Bile Ducts: Unremarkable. No visualized stones or biliary ductal dilatation. Spleen: Normal. Pancreas: Normal. Adrenal Glands: Normal. Kidneys and Ureters: Normal. No stones, hydronephrosis, or hydroureter. Peritoneal Cavity/Bowel: No evidence for bowel obstruction or acute inflammatory process. The appendi x is normal. No free fluid, pneumoperitoneum, or adenopathy. Pelvic Organs: 2.8 cm benign-appearing right ovarian cyst (image 72). The bladder, uterus, and ovarie s are otherwise unremarkable. Vasculature: Normal. Bones: No significant abnormality. Other: None. IMPRESSION: 1. No acute inflammatory or obstructive process identified to explain abdominal pain. 2. 2.8 cm benign-appearing right ovarian cyst. No routine imaging follow-up needed per ACR otf [facility] Referring Provider Line: [phone] SITE ID: [id number]
[2017-07-08 23:15] VITALS: BP 142/86
[2017-07-08] MEDS ORDERED: MORPHINE 10 MG/ML VIAL IVP STA (23:34)
[2017-07-08] MEDS ORDERED: oxyCODONE/ACET 5/325 Prepack 4 PO STA (23:34)
[2017-07-08] MEDS ORDERED: KETOROLAC 60 MG/2 ML VIAL IVP STA (23:34)
== END 2017-07-09 00:18 | disposition home or self-care (01) ==
LOC: ED 20:17
DX: R10.13 Epigastric pain (principal); R11.0 Nausea; K21.9 Gastro-esophageal reflux disease without esophagitis; J45.909 Unspecified asthma, uncomplicated
CPT/HCPCS: 36415; 74177; 80053; 83690; 85025; 96361; 96374; 96375; 96376; 99283; 99284; Q9967

== ENCOUNTER 2017-07-10 18:26 | Day surgery (SDC) | payer OTHER, MEDICAID ==
[2017-07-10] MEDS ORDERED: MORPHINE 10 MG/ML VIAL IVP STA ×4 (18:59→23:04)
[2017-07-10] MEDS ORDERED: ONDANSETRON 4 MG/2 ML VIAL IVP STA (18:59)
--- NOTE | 2017-07-10 19:03 | ED Physician Documentation ---
PD HPI ABD PAIN - Stated complaint Stated Complaint: ABD PX - Chief complaint Chief Complaint: Abd Pain - History obtained from History obtained from: Patient - History of Present Illness Timing - onset: Other (She had an epigastric hernia repair a couple of months ago. 2 days ago she developed severe epigastric pain, no change with eating. She has been nauseous but no vomiting and no changes in her bowel movements. She was seen here [address] scan was done showing a right ovarian cyst, but no other abnormalities. Pain is persistent despite taking Percocet and severe.) Review of Systems Ten Systems: 10 systems reviewed and negative Constitutional: denies: Fever, Chills Cardiac: reports: Reviewed and negative Respiratory: reports: Reviewed and negative GI: reports: Abdominal Pain, Nausea. denies: Vomiting, Constipation, Diarrhea, Hematemesis, Bloody / black stool PD PAST MEDICAL HISTORY - Past Medical History Past Medical History: Yes Cardiovascular: None Respiratory: Asthma Endocrine/Autoimmune: None GI: GERD, Other : None HEENT: None Psych: Depression, Anxiety, Panic attacks, Claustrophobia Musculoskeletal: None Derm: Psoriasis, Other - Past Surgical History Past Surgical History: Yes - Present Medications Home Medications: Ambulatory Orders Medication Instructions Recorded Confirmed Fexofenadine HCl [Linda Allergy] 180 mg PO DAILY 09/13/15 05/11/17 Buspirone HCl 1 tab PO DAILY 04/04/17 05/11/17 Citalopram Hydrobromide 1 tab PO DAILY 04/04/17 05/11/17 [Citalopram HBr] Esomeprazole Magnesium 1 cap PO DAILY 04/04/17 05/11/17 Ondansetron Odt [Zofran] 4 mg TL Q6H PRN #20 tablet 04/04/17 05/11/17 raNITIdine [Zantac] 1 tab PO DAILY 04/04/17 05/11/17 Norethindrone-Ethinyl Estrad 1 tab PO DAILY 05/06/17 05/11/17 [Alyacen 1-35-28 Tablet] Oxycodone HCl/Acetaminophen 1 - 2 each PO Q6H PRN #20 tablet 05/17/17 [Percocet 5-325 mg Tablet] Ondansetron Odt [Zofran] 4 mg TL Q6H PRN #14 tablet 07/08/17 oxyCODONE/ACET 5/325 [Percocet 5 1 - 2 each PO Q6H PRN #14 tablet 07/08/17 mg/325 mg] - Allergies Allergies/Adverse Reactions: Allergies Allergy/AdvReac Type Severity Reaction Status Date / Time Latex, Natural Rubber Allergy Intermediate Rash Verified 07/08/17 20:26 Penicillins Allergy Intermediate Emesis Verified 07/08/17 20:26 Tetanus Vaccines and Toxoid Allergy Intermediate Hives Verified 07/08/17 20:26 [Tetanus Vaccines & Toxoid] tioconazole [From Monistat 1] Allergy Intermediate Itching Verified 07/08/17 20: 26 clindamycin Allergy Itching Verified 07/08/17 20:26 adhesive AdvReac Rash Verified 07/08/17 20:26 - Social History Does the pt smoke?: No Smoking Status: Never smoker Does the pt drink ETOH?: No Does the pt have substance abuse?: No - Family History Family history: reports: Non contributory - Immunizations Immunizations are current?: Yes - POLST Patient has POLST: No PD ED PE NORMAL - Vitals Vital signs reviewed: Yes - General General: Alert and oriented X 3, No acute distress - HEENT HEENT: PERRL, EOMI - Neck Neck: Supple, no meningeal sign, No bony TTP - Cardiac Cardiac: RRR, No murmur - Respiratory Respiratory: No respiratory distress, Clear bilaterally - Abdomen Abdomen: Normal bowel sounds, Soft, Other (Epigastric incision is clean dry and intact, she is quite tender in the epigastrium without surgical signs.) - Back Back: No CVA TTP, No spinal TTP - Derm Derm: Normal color, Warm and dry - Extremities Extremities: No edema, No calf tenderness / cord - Neuro Neuro: Alert and oriented X 3, Normal speech Results - Vitals Vitals: Vital Signs - 24 hr 07/10/17 07/10/17 07/10/17 18:30 20:30 22:02 Temperature 36.8 C Heart Rate 92 79 87 Respiratory 22 16 18 Rate Blood Pressure 143/89 H 117/68 121/80 O2 Saturation 100 98 100 07/10/17 22:11 Temperature 37.1 C Heart Rate 76 Respiratory 16 Rate Blood Pressure 121/80 O2 Saturation 99 Oxygen O2 Source Room air - Labs Labs: Laboratory Tests 07/10/17 07/10/17 07/10/17 19:05 19:05 19:15 WBC 6.2 RBC 4.32 Hgb 13.0 Hct 39.7 MCV 91.9 MCH 30.0 MCHC 32.7 RDW 14.2 Plt Count 213 MPV 8.8 Neut # 3.0 Lymph # 2.8 [place] # 0.3 Eos # 0.1 Baso # 0.0 Absolute Nucleated RBC 0.00 Nucleated RBC % 0.0 Sodium 138 Potassium 3.8 Chloride 99 L Carbon Dioxide 31 Anion Gap 8.0 BUN 11 Creatinine 0.8 Estimated GFR (MDRD) 84 L Glucose 100 Calcium 9.9 Total Bilirubin 0.6 AST 26 ALT 16 Alkaline Phosphatase 51 Total Protein 8.0 Albumin 4.6 Globulin 3.4 Albumin/Globulin Ratio 1.4 Lipase 31 Urine Color YELLOW Urine Clarity CLEAR Urine pH 6.0 Ur Specific [place] 1.020 Urine Protein NEGATIVE Urine Glucose (UA) NEGATIVE Urine Ketones NEGATIVE Urine Occult Blood LARGE H Urine Nitrite NEGATIVE Urine Bilirubin NEGATIVE Urine Urobilinogen 0.2 (NORMAL) Ur Leukocyte Esterase NEGATIVE Urine RBC 0-5 Urine WBC 0-3 Ur Squamous Epith Cells RARE Squamous Urine Bacteria None Seen Ur Microscopic Review INDICATED Urine Culture Comments NOT INDICATED Urine HCG, Qual NEGATIVE PD MEDICAL DECISION MAKING - ED course ED course: Review of CT from 2 nights ago demonstrates concern for recurrent fat containing incisional hernia. Dr Crowell consulted and plans to take to OR in A M for repair. Departure - Departure Disposition: ED Transfer to [facility] Clinical Impression: Incarcerated incisional hernia Condition: Stable
[2017-07-10 19:29] LABS: BASOPHILS % (AUTO) 0.3 %; EOSINOPHILS # (AUTO) 0.1 10^3/uL (0.0-0.7); EOSINOPHILS % (AUTO) 1.1 %; LYMPHOCYTES # (AUTO) 2.8 10^3/uL (1.5-3.5); MEAN CORPUSCULAR HGB CONC 32.7 g/dL (32.0-36.0); MEAN CORPUSCULAR VOLUME 91.9 fL (81.0-99.0); MEAN PLATELET VOLUME 8.8 fL (7.9-10.8); MONOCYTES # (AUTO) 0.3 10^3/uL (0.0-1.0); MONOCYTES % (AUTO) 4.3 %; NEUTROPHILS % (AUTO) 49.3 %; PLT - PLATELET COUNT 213 10^3/uL (130-450); RED BLOOD COUNT 4.32 10^6/uL (4.20-5.40); RED CELL DISTRIBUTION WIDTH 14.2 % (12.0-15.0); WHITE BLOOD COUNT 6.2 x10^3/uL (4.8-10.8)
[2017-07-10 19:36] LABS: ALBUMIN 4.6 g/dL (3.2-5.5); ALBUMIN/GLOBULIN RATIO 1.4 (1.0-2.2); BILIRUBIN,TOTAL 0.6 mg/dL (0.2-1.0); CALCIUM 9.9 mg/dL (8.5-10.3); CREATININE 0.8 mg/dL (0.4-1.0)
[2017-07-10 19:52] LABS: BILIRUBIN,URINE NEGATIVE (NEGATIVE); GLUCOSE, URINE (UA) NEGATIVE (NEGATIVE); KETONES,URINE (UA) NEGATIVE (NEGATIVE); LEUKOCYTE ESTERASE, URINE NEGATIVE (NEGATIVE); NITRITE,URINE NEGATIVE (NEGATIVE); OCCULT BLOOD,URINE LARGE (NEGATIVE); PROTEIN,URINE NEGATIVE (NEGATIVE); UROBILINOGEN,URINE 0.2 (NORMAL) E.U./dL (NORMAL)
[2017-07-10 19:54] LABS: CLARITY,URINE CLEAR (CLEAR); HCG UR QUAL NEGATIVE
[2017-07-10 20:14] LABS: BACTERIA,URINE None Seen /HPF (None Seen); RBC,URINE 0-5 /HPF (0-5); SQUAMOUS EPITHELIAL CELL,UR RARE Squamous (<= Few)
[2017-07-10] MEDS: DEXTROSE 5%-LACTATED RINGERS 1,000 ML IV SCH (22:10)
[2017-07-11] MEDS ORDERED: MORPHINE 10 MG/ML VIAL IVP ONE ×2 (00:46→03:12)
[2017-07-11] MEDS ORDERED: ONDANSETRON 4 MG/2 ML VIAL IVP STA (01:04)
[2017-07-11] MEDS ORDERED: PROMETHAZINE INJ 12.5 MG in SODIUM CHLORIDE 0.9% 50 ML IV PRN (04:59)
[2017-07-11] MEDS: MORPHINE 2 MG/ML SYRINGE IVP PRN ×2 (05:13→08:36)
[2017-07-11] MEDS: DEXTROSE 5%-LACTATED RINGERS 1,000 ML IV SCH (06:02)
[2017-07-11] MEDS ORDERED: SCOPOLAMINE PATCH TOP ONE (08:32)
[2017-07-11] MEDS ORDERED: LACTATED RINGERS 1,000 ML IV ONE ×2 (09:07→09:30)
--- NOTE | 2017-07-11 09:15 | CONSULTATION NOTE ---
Referring Provider Name of Referring Provider:: Mariusz Cunningham MD Consult Date: 07/10/17 Chief Complaint - Chief Complaint Chief Complaint: Severe abdominal pain at previous hernia site History of Present Illness - Admitted From Admitted From:: NOT admitted - outpatient - History Obtained From Records Reviewed: Yes History obtained from: Patient and chart Exam Limitations: None - History of Present Illness HPI Comment/Other: This very pleasant but clearly nervous 31-year-old female was evaluated in room 8 at [facility]'s emergency department. She had been seen and evaluated approximately 2 days ago for the same issue and a CT scan was obtained. Although the CT scan did not show an abnormality at the hernia site I think in retrospect he does have one. The patient states that she had the abrupt onset of pain 2 days ago. This is while she was at work. She was not doing anything terribly strenuous at that time. The pain since that time has been unremitting. The Percocet that she was given 2 days ago do not seem to help. She has not had any change in her bowel habits although she states that the pain does make her little bit nauseous. My review of the record shows that Dr. Lehman fixed and epigastric hernia with 2 [id number] sutures and did not use mesh. History - Past Medical History Cardiovascular: reports: None Respiratory: reports: Asthma Endocrine/Autoimmune: reports: None GI: reports: GERD, Other : reports: None HEENT: reports: None Psych: reports: Depression, Anxiety, Panic attacks, Claustrophobia Musculoskeletal: reports: None Derm: reports: Psoriasis, Other MRSA Hx?: No - POLST Patient has POLST: No Meds/Allgy - Home Medications Home Medications: Ambulatory Orders Medication Instructions Recorded Confirmed Fexofenadine HCl [Linda Allergy] 180 mg PO DAILY 09/13/15 05/11/17 Buspirone HCl 1 tab PO DAILY 04/04/17 05/11/17 Citalopram Hydrobromide 1 tab PO DAILY 04/04/17 05/11/17 [Citalopram HBr] Esomeprazole Magnesium 1 cap PO DAILY 04/04/17 05/11/17 Ondansetron Odt [Zofran] 4 mg TL Q6H PRN #20 tablet 04/04/17 05/11/17 raNITIdine [Zantac] 1 tab PO DAILY 04/04/17 05/11/17 Norethindrone-Ethinyl Estrad 1 tab PO DAILY 05/06/17 05/11/17 [Alyacen 1-35-28 Tablet] Oxycodone HCl/Acetaminophen 1 - 2 each PO Q6H PRN #20 tablet 05/17/17 [Percocet 5-325 mg Tablet] Ondansetron Odt [Zofran] 4 mg TL Q6H PRN #14 tablet 07/08/17 oxyCODONE/ACET 5/325 [Percocet 5 1 - 2 each PO Q6H PRN #14 tablet 07/08/17 mg/325 mg] - Allergies Allergies/Adverse Reactions: Allergies Allergy/AdvReac Type Severity Reaction Status Date / Time Latex, Natural Rubber Allergy Intermediate Rash Verified 07/08/17 20:26 Penicillins Allergy Intermediate Emesis Verified 07/08/17 20:26 Tetanus Vaccines and Toxoid Allergy Intermediate Hives Verified 07/08/17 20:26 [Tetanus Vaccines & Toxoid] tioconazole [From Monistat 1] Allergy Intermediate Itching Verified 07/08/17 20: 26 clindamycin Allergy Itching Verified 07/08/17 20:26 adhesive AdvReac Rash Verified 07/08/17 20:26 Review of Systems - Constitutional Constitutional: denies: Fatigue, Fever, Chills, Malaise, Weakness, Poor appetite , Diaphoresis, Night sweats, Weight gain, Weight loss - Cardiovascular Cariovascular: denies: Irregular heart rate, Palpitations, Chest pain - Respiratory Respiratory: denies: Cough, Sputum production - Gastrointestinal Gastrointestinal: reports: Abdominal pain (At incisional site.), Nausea. denies : Constipation, Diarrhea, Change in bowel habits, Black stools, Bloody stools, Vomiting - Genitourinary Genitourinary: denies: Dysuria - Psychiatric Psychiatric: reports: Anxiety - Hematologic/Lymphatic Hematologic/Lymphatic: denies: Bruising Exam - Vital Signs Reviewed Vital Signs: Yes Vital Signs: Vital Signs x48h Temp Pulse Resp BP Pulse Ox 07/11/17 07:28 36.6 C 93 15 115/79 99 07/11/17 04:32 36.9 C 82 16 123/91 H 100 07/11/17 01:11 86 16 120/81 H 98 - Physical Exam General Appearance: positive: Mild distress (Due to pain and I think a bit exacerbated by anxiety.) Eyes Bilateral: positive: No lid inflammation, Conjunctivae nml, No scleral icterus ENT: positive: Dry mucous membranes Neck: positive: Trachea midline Respiratory: positive: Chest non-tender, No respiratory distress, Breath sounds nml Cardiovascular: positive: Regular rate & rhythm Abdomen: positive: Nml bowel sounds, Tenderness (Right under the incision just above the umbilicus.) Skin: positive: Color nml Extremities: positive: Nml appearance Neurologic/Psychiatric: positive: Oriented x3 Conclusion/Plan - Diagnosis Diagnosis: Incarcerated incisional hernia - Plan Plan: Incarcerated incisional herniorrhaphy likely using mesh. I explained to the patient that I think a small bit of fat between the sutures and this is causing her her discomfort. The indications, procedure, alternatives, and possible complications including but not limited to bleeding (with all of its risks including transfusion reaction and infection), infection both superficial and deep, and were fully explained to the patient all questions were answered. Verbal and written consent was obtained. I explained following the procedure that I expected her to be able to be discharged home as an outpatient. She will then follow-up with me in 7-10 days. I asked her to contact me with any surgical questions and or concerns while she is in the hospital as well as when she gets home. 45 minutes of [id number] time was spent with the patient and her the majority of which was spent in discussion and coordination of her care - Lab Results Lab results reviewed: Yes Fish Bones: 07/10/17 19:05 07/10/17 19:05 - Diagnostic Imaging Results Diagnostic Imaging Results: positive: Final report reviewed, Read independently
[2017-07-11] MEDS ORDERED: BUPIVACAINE 0.5%-EPI 1:200000 PF 30 ML VIAL ONE (09:25)
[2017-07-11] MEDS ORDERED: BUPIVACAINE 0.5%-EPI 1:200000 PF 30 ML VIAL SUBQ ONE (09:26)
[2017-07-11] MEDS ORDERED: ROCURONIUM 50 MG/5 ML VIAL IVP ONE (10:00)
[2017-07-11] MEDS ORDERED: PROPOFOL 200 MG/20 ML VIAL IVP ONE (10:00)
[2017-07-11] MEDS ORDERED: ONDANSETRON 4 MG/2 ML VIAL IVP ONE (10:00)
[2017-07-11] MEDS ORDERED: LIDOCAINE-MPF 2% 5 ML VIAL IM ONE (10:00)
[2017-07-11] MEDS ORDERED: MIDAZOLAM 2 MG/2 ML VIAL IVP ONE (10:00)
[2017-07-11] MEDS ORDERED: NEOSTIGMINE 1 MG/1 ML 10 ML MDV IVP ONE (10:00)
[2017-07-11] MEDS ORDERED: GLYCOPYRROLATE 1 MG/5 ML VIAL IVP ONE (10:00)
--- NOTE | 2017-07-11 10:01 | OPERATIVE REPORT ---
Operative Report - General Procedure Date: 07/11/17 Planned Procedure: Incarcerated incisional herniorrhaphy with mesh Pre-Op Diagnosis: Incarcerated incisional hernia Procedure Performed: Incarcerated incisional herniorrhaphy with mesh Post Op Diagnosis: Incarcerated incisional hernia - Procedure Note Primary Surgeon: Jay Jay Crowell MD Anesthesia Provider: Jay Jay Hassan MD Anesthesia Technique: General ET tube IV Fluids (mL): 600 Estimated Blood Loss (mL): 5 Complications: None. - Other Other Information/Narrative: OPERATIVE DESCRIPTION/REPORT: After verbal and written informed consent was obtained detailing the risks of infection, bleeding requiring transfusion with its risks, nerve injury, and , and after I met with the patient confirming the surgery and the site of the surgery, the patient was brought to the operative suite and placed supine on the operating table. Great care was taken to avoid pressure points to prevent pressure necrosis or nerve injury. Monitoring devices were applied along with TEDs and pneumatic compressive stockings (to prevent DVT). The patient received preoperative antibiotics for surgical prophylaxis. Dr. Jay Jay Hassan sedated and anesthetized the patient for the entire procedure. The patient was prepped and draped in the usual sterile manner. With the patient draped my initials were clearly visible. A "time in" then confirmed that the patient was identified with 3 identifiers (name, date and medical record number), the history and physical was in the chart, the signed consent confirming the procedure was in the chart, the patient was in the correct position, the aforementioned prophylactic measures were in place or given, we had the correct personnel and equipment to complete the procedure and that anesthesia, surgery and nursing were given an opportunity to express any concerns. With the agreement of everyone in the room, we proceeded with the operation. A vertical midline incision was made overlying the mass tracing the previous incision and dissection was carried down to the hernia sac using a combination of Metzenbaum scissors, scalpel, and mostly Bovie electrocautery. The sac was cleared of overlying adherent tissue, and the fascial defect was delineated. The fascia was cleared of any adherent tissue for a distance 1.5 cm from the defect. The sac was resected using a combination of Metzenbaum scissors and mostly Bovie electrocautery. The previously plaed Prolene sutures were seen inferior to the defect and left in place. The defect was closed using Ventralex ST hernia patch 6.4 cm (Ref#[id number], Lot#[id number], and use by date 2019-01-20) sewing it in place using interrupted 2-0 PDS. The fascia was then closed above this using 3 simple 0 PDS sutures. The fascia, subcutaneous tissues, and skin were injected using 30 mL 1/2% marcaine for pain control. Meticulous hemostasis was obtained using Bovie electrocautery. The skin incision was approximated with a running 4-0 Monocryl. At this point a time out was performed that confirmed that all the counts were correct, the procedure that was performed, the blood loss, the IV fluids administered, and the patient s condition. Having tolerated the procedure well, the patient was subsequently extubated and taken to recovery room in good and stable condition.
[2017-07-11] MEDS ORDERED: ACETAMINOPHEN 1,000 MG/100 ML 100 ML IV ONE (10:16)
[2017-07-11] MEDS ORDERED: KETOROLAC 15 MG/ML VIAL ONE (10:17)
[2017-07-11] MEDS: HYDROmorphone 1 MG/ML CARPUJECT ONE ×2 (10:26→10:43)
[2017-07-11] MEDS ORDERED: LORazepam 2 MG/ML VIAL ONE (10:45)
[2017-07-11] MEDS ORDERED: ONDANSETRON 4 MG/2 ML VIAL ONE (11:14)
[2017-07-11] MEDS ORDERED: DEXAMETHASONE 4 MG/ML VIAL ONE (11:37)
[2017-07-11 13:13] VITALS: BP 125/68
== END 2017-07-11 13:13 | disposition home or self-care (01) ==
LOC: ED 18:26 → SDS 22:00
PROVIDERS: ATTEND Surgery
PROC: 0WUF0JZ Supplement Abdominal Wall with Synthetic Substitute, Open Approach (ICD-10-PCS; principal; 2017-07-11 09:00)
DX: K43.0 Incisional hernia with obstruction, without gangrene (principal); J45.909 Unspecified asthma, uncomplicated
CPT/HCPCS: 36415; 49561; 49568; 80053; 81001; 81025; 83690; 85025; 96361; 96365; 96375; 96376; 99285; C1781; J0131; J1170; J2060; J2270; J3490; J7120; 81003; 87086

== ENCOUNTER 2017-07-11 21:52 | Emergency (ER) | payer OTHER, MEDICAID ==
[2017-07-11] MEDS ORDERED: MORPHINE 10 MG/ML VIAL IVP STA (22:12)
[2017-07-11] MEDS ORDERED: SODIUM CHLORIDE 0.9% 1,000 ML IV ONE (22:12)
[2017-07-11] MEDS ORDERED: ONDANSETRON 4 MG/2 ML VIAL IVP STA (22:12)
--- NOTE | 2017-07-11 22:19 | ED Physician Documentation ---
PD HPI ABD PAIN - Stated complaint Stated Complaint: ABD PX/POST SURGERY - Chief complaint Chief Complaint: Abd Pain - History obtained from History obtained from: Patient - History of Present Illness Timing - onset: Today Timing - details: Gradual onset, Still present Quality: Aching, Sharp Location: Epigastric Worsened by: Position, Palpation Associated symptoms: No: Fever Similar symptoms before: Work up / diagnostics, Treatment Recently seen: Surgery - Additional information Additional information: Patient is a 31 year old female presenting to the emergency department for abdominal pain. According to patient and previous notes patient had a hernia repair today. patient states that she developed severe pain this evening so she came in for evaluation. patient states that she has dysuria. Patient has not had a bowel movement and does not know if she has passed gas. Review of Systems Constitutional: denies: Fever, Chills Eyes: reports: Reviewed and negative Ears: reports: Reviewed and negative Respiratory: denies: Cough, Wheezing GI: reports: Abdominal Pain. denies: Nausea, Vomiting, Constipation, Diarrhea : reports: Dysuria. denies: Frequency, Incontinent Skin: denies: Rash, Lesions Psychiatric: reports: Anxiety Immunocompromised: denies: Immunocompromised PD PAST MEDICAL HISTORY - Past Medical History Cardiovascular: None Respiratory: Asthma Endocrine/Autoimmune: None GI: GERD, Other : None HEENT: None Psych: Depression, Anxiety, Panic attacks, Claustrophobia Musculoskeletal: None Derm: Psoriasis, Other - Past Surgical History Past Surgical History: Yes - Present Medications Home Medications: Ambulatory Orders Medication Instructions Recorded Confirmed Fexofenadine HCl [Linda Allergy] 180 mg PO DAILY 09/13/15 05/11/17 Buspirone HCl 1 tab PO DAILY 04/04/17 05/11/17 Citalopram Hydrobromide 1 tab PO DAILY 04/04/17 05/11/17 [Citalopram HBr] Esomeprazole Magnesium 1 cap PO DAILY 04/04/17 05/11/17 Ondansetron Odt [Zofran] 4 mg TL Q6H PRN #20 tablet 04/04/17 05/11/17 raNITIdine [Zantac] 1 tab PO DAILY 04/04/17 05/11/17 Norethindrone-Ethinyl Estrad 1 tab PO DAILY 05/06/17 05/11/17 [Alyacen 1-35-28 Tablet] Oxycodone HCl/Acetaminophen 1 - 2 each PO Q6H PRN #20 tablet 05/17/17 [Percocet 5-325 mg Tablet] Ondansetron Odt [Zofran] 4 mg TL Q6H PRN #14 tablet 07/08/17 oxyCODONE/ACET 5/325 [Percocet 5 1 - 2 each PO Q6H PRN #14 tablet 07/08/17 mg/325 mg] - Allergies Allergies/Adverse Reactions: Allergies Allergy/AdvReac Type Severity Reaction Status Date / Time Latex, Natural Rubber Allergy Intermediate Rash Verified 07/08/17 20:26 Penicillins Allergy Intermediate Emesis Verified 07/08/17 20:26 Tetanus Vaccines and Toxoid Allergy Intermediate Hives Verified 07/08/17 20:26 [Tetanus Vaccines & Toxoid] tioconazole [From Monistat 1] Allergy Intermediate Itching Verified 07/08/17 20: 26 clindamycin Allergy Itching Verified 07/08/17 20:26 adhesive AdvReac Rash Verified 07/08/17 20:26 - Social History Does the pt smoke?: No Smoking Status: Never smoker Does the pt drink ETOH?: No Does the pt have substance abuse?: No - Immunizations Immunizations are current?: Yes - POLST Patient has POLST: No PD ED PE NORMAL - Vitals Vital signs reviewed: Yes - HEENT HEENT: Atraumatic - Respiratory Respiratory: No respiratory distress - Derm Derm: Normal color - Extremities Extremities: No deformity PD ED PE EXPANDED - General General: Alert, In Pain - Cardiac Cardiac: Tachy - Abdomen Abdomen: Tender to palpation, Generalized/diffuse, Surgical scars (well appearing incision site no active bleeding) - Psych Psych: Tearful, Anxious Results - Vitals Vitals: Vital Signs - 24 hr 07/11/17 07/11/17 07/11/17 21:57 22:40 23:17 Temperature 37.8 C H Heart Rate 126 H 91 140 H Respiratory 26 H 12 28 H Rate Blood Pressure 160/110 H 126/84 H 139/85 H O2 Saturation 96 96 98 07/12/17 00:10 Temperature 37.4 C Heart Rate 98 Respiratory 22 Rate Blood Pressure 123/68 O2 Saturation 99 Oxygen O2 Source Room air - Labs Labs: Laboratory Tests 07/11/17 07/11/17 07/11/17 22:15 22:15 22:15 WBC 8.4 RBC 4.20 Hgb 12.5 Hct 38.3 MCV 91.3 MCH 29.6 MCHC 32.5 RDW 13.7 Plt Count 241 MPV 8.8 Neut # 7.0 H Lymph # 1.1 L [place] # 0.3 Eos # 0.0 Baso # 0.0 Absolute Nucleated RBC 0.00 Nucleated RBC % 0.0 Sodium 136 Potassium 4.6 Chloride 102 Carbon Dioxide 26 Anion Gap 8.0 BUN 11 Creatinine 0.7 Estimated GFR (MDRD) 98 Glucose 113 H Lactic Acid 1.9 Calcium 9.6 Total Bilirubin 0.4 AST 32 ALT 16 Alkaline Phosphatase 49 Total Protein 7.7 Albumin 4.2 Globulin 3.5 Albumin/Globulin Ratio 1.2 Lipase 32 Urine Color Urine Clarity Urine pH Ur Specific [place] Urine Protein Urine Glucose (UA) Urine Ketones Urine Occult Blood Urine Nitrite Urine Bilirubin Urine Urobilinogen Ur Leukocyte Esterase Urine RBC Urine WBC Ur Squamous Epith Cells Urine Bacteria Ur Microscopic Review Urine Culture Comments Urine HCG, Qual 07/11/17 23:35 WBC RBC Hgb Hct MCV MCH MCHC RDW Plt Count MPV Neut # Lymph # [place] # Eos # Baso # Absolute Nucleated RBC Nucleated RBC % Sodium Potassium Chloride Carbon Dioxide Anion Gap BUN Creatinine Estimated GFR (MDRD) Glucose Lactic Acid Calcium Total Bilirubin AST ALT Alkaline Phosphatase Total Protein Albumin Globulin Albumin/Globulin Ratio Lipase Urine Color YELLOW Urine Clarity CLEAR Urine pH 7.5 Ur Specific [place] 1.010 Urine Protein NEGATIVE Urine Glucose (UA) NEGATIVE Urine Ketones NEGATIVE Urine Occult Blood MODERATE H Urine Nitrite NEGATIVE Urine Bilirubin NEGATIVE Urine Urobilinogen 0.2 (NORMAL) Ur Leukocyte Esterase NEGATIVE Urine RBC 0-5 Urine WBC 0-3 Ur Squamous Epith Cells RARE Squamous Urine Bacteria None Seen Ur Microscopic Review INDICATED Urine Culture Comments NOT INDICATED Urine HCG, Qual NEGATIVE PD MEDICAL DECISION MAKING - ED course Complexity details: reviewed old records, reviewed results, re-evaluated patient , considered differential, d/w patient, d/w family, 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 IV access was gained and labs were drawn. patient was treated with morphine, IV fluids and zofran. patient's tachycardia and htn resolved with the pain medication. patient's labs were within normal limits but patient stated that her pain was still an 8 out of 10. The patient's surgeon, Dr. Hu was contacted and he came to evaluate the patient. patient was treated with ativan. He stated that the pain seemed out of proportion for the incision. findings were discussed with the patient and the family. patient was asking to leave and family was instructed to follow up with Dr. Crowell tomorrow. patient was stable for discharge with outpatient follow up. Departure - Departure Disposition: Home, Self Care Clinical Impression: Abdominal pain Condition: Good Instructions: Abdominal Pain Follow-Up: Jay Jay Crowell MD [Provider Admit Priv/Credential] - Tomorrow Comments: Your diagnostics today were within normal limits. You should take your prescribed pain medications. You should follow up with Dr. Hu tomorrow. You may return to the emergency department at any time for new, worsening or uncontrollable symptoms. Discharge Date/Time: 07/12/17 00:10
[2017-07-11 22:23] LABS: BASOPHILS % (AUTO) 0.3 %; EOSINOPHILS % (AUTO) 0.1 %; HGB - HEMOGLOBIN 12.5 g/dL (12.0-16.0); LYMPHOCYTES # (AUTO) 1.1 10^3/uL (1.5-3.5); LYMPHOCYTES % (AUTO) 12.7 %; MEAN CORPUSCULAR HEMOGLOBIN 29.6 pg (27.0-31.0); MEAN CORPUSCULAR HGB CONC 32.5 g/dL (32.0-36.0); MEAN CORPUSCULAR VOLUME 91.3 fL (81.0-99.0); MEAN PLATELET VOLUME 8.8 fL (7.9-10.8); MONOCYTES # (AUTO) 0.3 10^3/uL (0.0-1.0); MONOCYTES % (AUTO) 3.4 %; NEUTROPHILS % (AUTO) 83.5 %; PLT - PLATELET COUNT 241 10^3/uL (130-450); RED CELL DISTRIBUTION WIDTH 13.7 % (12.0-15.0); WHITE BLOOD COUNT 8.4 x10^3/uL (4.8-10.8)
[2017-07-11 22:38] LABS: ALBUMIN 4.2 g/dL (3.2-5.5); ALBUMIN/GLOBULIN RATIO 1.2 (1.0-2.2); BILIRUBIN,TOTAL 0.4 mg/dL (0.2-1.0); CALCIUM 9.6 mg/dL (8.5-10.3); CREATININE 0.7 mg/dL (0.4-1.0); TOTAL PROTEIN 7.7 g/dL (6.7-8.2)
[2017-07-11] MEDS ORDERED: LORazepam 2 MG/ML VIAL IVP STA (23:09)
[2017-07-11 23:52] LABS: BILIRUBIN,URINE NEGATIVE (NEGATIVE); GLUCOSE, URINE (UA) NEGATIVE (NEGATIVE); KETONES,URINE (UA) NEGATIVE (NEGATIVE); LEUKOCYTE ESTERASE, URINE NEGATIVE (NEGATIVE); NITRITE,URINE NEGATIVE (NEGATIVE); OCCULT BLOOD,URINE MODERATE (NEGATIVE); PH,URINE 7.5 PH (5.0-7.5); PROTEIN,URINE NEGATIVE (NEGATIVE); UROBILINOGEN,URINE 0.2 (NORMAL) E.U./dL (NORMAL)
[2017-07-12 00:11] VITALS: BP 123/68
[2017-07-12 00:11] LABS: BACTERIA,URINE None Seen /HPF (None Seen); CLARITY,URINE CLEAR (CLEAR); HCG UR QUAL NEGATIVE; RBC,URINE 0-5 /HPF (0-5); SQUAMOUS EPITHELIAL CELL,UR RARE Squamous (<= Few)
[2017-07-12 00:35] LABS: MUDS CUTOFF CONCENTRATIONS CUTOFF CONC BELOW:
[2017-07-12 00:47] LABS: AMPHETAMINE SCREEN,URINE NEGATIVE (NEGATIVE); BENZODIAZEPINES SCREEN, URINE NEGATIVE (NEGATIVE); COCAINE SCREEN URINE NEGATIVE (NEGATIVE); METHADONE SCREEN, URINE NEGATIVE (NEGATIVE); METHAMPHETAMINES SCREEN, URINE NEGATIVE (NEGATIVE); OPIATE SCREEN, URINE POSITIVE (NEGATIVE); OXYCODONE SCREEN, URINE POSITIVE (NEGATIVE); PROPOXYPHENE SCREEN, URINE NEGATIVE (NEGATIVE); TRICYCLIC ANTIDEPRESSANT,URINE NEGATIVE (NEGATIVE)
== END 2017-07-12 00:10 | disposition home or self-care (01) ==
LOC: ED 21:52
DX: R10.9 Unspecified abdominal pain (principal); Z98.890 Other specified postprocedural states
CPT/HCPCS: 36415; 80053; 80306; 81001; 81025; 83605; 83690; 85025; 96361; 96374; 96375; 99283; 99284; J2060; 81003; 87086

== ENCOUNTER 2017-12-01 17:14 | Emergency (ER) | payer OTHER, MEDICAID ==
[2017-12-01] MEDS ORDERED: ONDANSETRON 4 MG/2 ML VIAL IVP STA (17:38)
[2017-12-01] MEDS ORDERED: HYDROmorphone 1 MG/ML CARPUJECT IVP STA (17:38)
[2017-12-01] MEDS ORDERED: SODIUM CHLORIDE 0.9% 1,000 ML IV ONE (17:38)
[2017-12-01 17:40] LABS: BASOPHILS % (AUTO) 0.4 %; EOSINOPHILS % (AUTO) 0.7 %; LYMPHOCYTES # (AUTO) 2.4 10^3/uL (1.5-3.5); LYMPHOCYTES % (AUTO) 32.3 %; MEAN CORPUSCULAR HEMOGLOBIN 31.2 pg (27.0-31.0); MEAN CORPUSCULAR HGB CONC 34.9 g/dL (32.0-36.0); MEAN CORPUSCULAR VOLUME 89.4 fL (81.0-99.0); MEAN PLATELET VOLUME 8.3 fL (7.9-10.8); MONOCYTES # (AUTO) 0.4 10^3/uL (0.0-1.0); MONOCYTES % (AUTO) 5.6 %; NEUTROPHILS # (AUTO) 4.6 10^3/uL (1.5-6.6); PLT - PLATELET COUNT 201 10^3/uL (130-450); RED BLOOD COUNT 4.16 10^6/uL (4.20-5.40); RED CELL DISTRIBUTION WIDTH 12.8 % (12.0-15.0); WHITE BLOOD COUNT 7.5 x10^3/uL (4.8-10.8)
--- NOTE | 2017-12-01 17:41 | ED Physician Documentation ---
PD HPI ABD PAIN - Stated complaint Stated Complaint: AB PX/NAUSEA - Chief complaint Chief Complaint: Abd Pain - History obtained from History obtained from: Patient - History of Present Illness Timing - onset: Yesterday (She has had daily periumbilical pain ever since a redo of a periumbilical ventral hernia repair with mesh in June. He got much worse yesterday. It has not moved. There is no radiation. Associated with nausea but no vomiting. She had a normal BM yesterday but no BM today, no appetite. She does smoke marijuana daily and finds some relief with a hot shower.) Review of Systems Ten Systems: 10 systems reviewed and negative Constitutional: denies: Fever, Chills Nose: denies: Rhinorrhea / runny nose, Congestion Cardiac: denies: Chest pain / pressure, Palpitations Respiratory: denies: Dyspnea, Cough GI: reports: Abdominal Pain, Nausea, Constipation. denies: Vomiting, Diarrhea, Hematemesis, Bloody / black stool PD PAST MEDICAL HISTORY - Past Medical History Past Medical History: No Cardiovascular: None Respiratory: Asthma Neuro: None Endocrine/Autoimmune: None GI: GERD, Other : None HEENT: None Psych: Depression, Anxiety, Panic attacks, Claustrophobia Musculoskeletal: None Derm: Psoriasis, Other - Past Surgical History Past Surgical History: Yes - Present Medications Home Medications: Ambulatory Orders Medication Instructions Recorded Confirmed Fexofenadine HCl [Linda Allergy] 180 mg PO DAILY 09/13/15 05/11/17 Buspirone HCl 1 tab PO DAILY 04/04/17 05/11/17 Citalopram Hydrobromide 1 tab PO DAILY 04/04/17 05/11/17 [Citalopram HBr] Esomeprazole Magnesium 1 cap PO DAILY 04/04/17 05/11/17 Ondansetron Odt [Zofran] 4 mg TL Q6H PRN #20 tablet 04/04/17 05/11/17 raNITIdine [Zantac] 1 tab PO DAILY 04/04/17 05/11/17 Norethindrone-Ethinyl Estrad 1 tab PO DAILY 05/06/17 05/11/17 [Alyacen 1-35 28 Tablet] Oxycodone HCl/Acetaminophen 1 - 2 each PO Q6H PRN #20 tablet 05/17/17 [Percocet 5-325 mg Tablet] Ondansetron Odt [Zofran] 4 mg TL Q6H PRN #14 tablet 07/08/17 oxyCODONE/ACET 5/325 [Percocet 5 1 - 2 each PO Q6H PRN #14 tablet 07/08/17 mg/325 mg] Meloxicam [Mobic] 7.5 mg PO BID PRN #20 tablet 12/01/17 Ondansetron Odt [Zofran] 4 mg TL Q6H PRN #10 tablet 12/01/17 - Allergies Allergies/Adverse Reactions: Allergies Allergy/AdvReac Type Severity Reaction Status Date / Time Latex, Natural Rubber Allergy Intermediate Rash Verified 12/01/17 17:21 Penicillins Allergy Intermediate Emesis Verified 12/01/17 17:21 Tetanus Vaccines and Toxoid Allergy Intermediate Hives Verified 12/01/17 17:21 [Tetanus Vaccines & Toxoid] tioconazole [From Monistat 1] Allergy Intermediate Itching Verified 12/01/17 17:21 clindamycin Allergy Itching Verified 12/01/17 17:21 adhesive AdvReac Rash Verified 12/01/17 17:21 - Social History Does the pt smoke?: No Smoking Status: Never smoker Does the pt drink ETOH?: No Does the pt have substance abuse?: Yes Substance Use and Type: Marijuana - Family History Family history: reports: Non contributory - Immunizations Immunizations are current?: Yes - POLST Patient has POLST: No PD ED PE NORMAL - Vitals Vital signs reviewed: Yes - General General: Alert and oriented X 3, No acute distress - HEENT HEENT: PERRL, EOMI, Pharynx benign - Neck Neck: Supple, no meningeal sign, No bony TTP - Cardiac Cardiac: RRR, No murmur - Respiratory Respiratory: No respiratory distress, Clear bilaterally - Abdomen Abdomen: Soft, Other (Lack of bowel tones Without significant abdominal tenderness.) - Back Back: No CVA TTP, No spinal TTP - Derm Derm: Normal color, Warm and dry - Extremities Extremities: No edema, No calf tenderness / cord - Neuro Neuro: Alert and oriented X 3, Normal speech - Psych Psych: Normal mood, Normal affect Results - Vitals Vitals: Vital Signs - 24 hr 12/01/17 17:17 Temperature 37.3 C Heart Rate 91 Respiratory 18 Rate Blood Pressure 153/111 H O2 Saturation 100 Oxygen O2 Source Room air - Rads (name of study) CT A/P Radiology: EMP read contemporaneously (NAD) PD MEDICAL DECISION MAKING - ED course ED course: 32-year-old woman with an exacerbation of chronic abdominal pain, specific concern for recurrence of previously recurring ventral hernia but no evidence of this on CT. Stepwise medication improvement although did not like side effects from either Dilaudid or Haldol. Requested meloxicam to go home with. Note that she smokes marijuana daily and does get some relief from a hot shower so cannabinoid hyperemesis is considered and cessation of marijuana encouraged. - Sepsis Event Vital Signs: Vital Signs - 24 hr 12/01/17 17:17 Temperature 37.3 C Heart Rate 91 Respiratory 18 Rate Blood Pressure 153/111 H O2 Saturation 100 Oxygen O2 Source Room air Departure - Departure Disposition: 01 Home, Self Care Clinical Impression: Abdominal pain Qualifiers: Abdominal location: periumbilical Qualified Code(s): R10.33 - Periumbilical pain Condition: Good Record reviewed to determine appropriate education?: Yes Instructions: ED Abdominal Pain Unkn Cause Prescriptions: Meloxicam [Mobic] 7.5 mg PO BID PRN #20 tablet PRN Reason: Pain Ondansetron Odt [Zofran] 4 mg TL Q6H PRN #10 tablet PRN Reason: Nausea / Vomiting Comments: As discussed, try quitting marijuana for a week as that may be exacerbating or causing her symptoms. Return if worse or new symptoms develop. Follow-up with your physician. Your blood pressure was elevated today on check into the emergency department. This does not mean that you have hypertension, it is a common phenomenon to come to the emergency department and have elevated blood pressure. I recommend that you see your primary care physician within the week to have it rechecked when you are feeling better.
[2017-12-01 17:43] LABS: BILIRUBIN,URINE NEGATIVE (NEGATIVE); GLUCOSE, URINE (UA) NEGATIVE (NEGATIVE); KETONES,URINE (UA) NEGATIVE (NEGATIVE); LEUKOCYTE ESTERASE, URINE SMALL (NEGATIVE); NITRITE,URINE NEGATIVE (NEGATIVE); OCCULT BLOOD,URINE NEGATIVE (NEGATIVE); PROTEIN,URINE NEGATIVE (NEGATIVE); UROBILINOGEN,URINE 0.2 (NORMAL) E.U./dL (NORMAL)
[2017-12-01 17:44] LABS: CLARITY,URINE CLEAR (CLEAR); HCG UR QUAL NEGATIVE
[2017-12-01] MEDS ORDERED: IOPAMIDOL-300 100 ML VIAL ONE (17:44)
[2017-12-01] MEDS ORDERED: IOPAMIDOL-300 50 ML VIAL ONE (17:44)
[2017-12-01 17:50] LABS: BACTERIA,URINE Many /HPF (None Seen); RBC,URINE 0-5 /HPF (0-5); SQUAMOUS EPITHELIAL CELL,UR MANY Squamous (<= Few)
[2017-12-01 17:51] LABS: ALBUMIN 4.5 g/dL (3.2-5.5); ALBUMIN/GLOBULIN RATIO 1.6 (1.0-2.2); BILIRUBIN,TOTAL 0.6 mg/dL (0.2-1.0); CALCIUM 9.1 mg/dL (8.5-10.3); CREATININE 0.8 mg/dL (0.4-1.0); TOTAL PROTEIN 7.4 g/dL (6.7-8.2)
[2017-12-01] MEDS ORDERED: METOCLOPRAMIDE 10 MG/2 ML VIAL IVP STA (18:27)
[2017-12-01] MEDS ORDERED: IOPAMIDOL-300 50 ML VIAL PO ONE (19:09)
[2017-12-01] MEDS ORDERED: IOPAMIDOL-300 100 ML VIAL IVP ONE (19:09)
--- NOTE | 2017-12-01 19:33 | CT Report ---
Reason: IV and PO if able, periumb pain` Procedure Date: 12/01/2017 Accession Number: [id number] / [id number] Procedure: CT - Abdomen/Pelvis W/ CPT Code: FULL RESULT: EXAM: CT ABDOMEN AND PELVIS EXAM DATE: 12/01/2017 07:08 PM. CLINICAL HISTORY: Periumbilical pain. History of hernia surgery in 2018. COMPARISONS: 07/08/2017. 04/04/2017. TECHNIQUE: Routine helical CT imaging was performed through the abdomen and pelvis. IV contrast: ISOVUE 300 100mL. Enteric contrast: Positive. Reconstructions: Coronal and sagittal. In accordance with CT protocol optimization, one or more of the following dose reduction techniques were utilized for this exam: automated exposure control, adjustment of mA and/or KV based on patient size, or use of iterative reconstructive technique. FINDINGS: Lung Bases: Unremarkable. Liver: Normal. No masses. Gallbladder/Bile Ducts: Unremarkable. Spleen: Normal. Pancreas: Normal. Adrenal Glands: Normal. Kidneys: Normal. No masses or hydronephrosis. Peritoneal Cavity/Bowel: Stomach is moderately distended. No evidence of small bowel obstruction or bowel wall thickening. No free air. Subcentimeter right lower quadrant mesenteric lymph nodes are seen. No enlarged retroperitoneal lymph nodes. The majority of the colon is decompressed. No evidence of diverticulitis. The appendix is well visualized and normal. Pelvic Organs: Urinary bladder is mild to moderately distended and unremarkable. Uterus is retroverted. No pelvic adenopathy. No pelvic free fluid. Vasculature: No aneurysms or other significant abnormality. Bones: No significant abnormality. Other: There has been interval repair of the ventral fatty hernia. No evidence of new ventral recurrent hernia. No fluid collections. Soft tissue thickening along the site of hernia repair. IMPRESSION: 1. Status post ventral hernia repair. No evidence for recurrent hernia. No fluid collections. 2. Normal appendix. No bowel obstruction. No diverticulitis. 3. No nephrolithiasis. No hydronephrosis. No bladder calculi. 4. Normal CT appearance of the gallbladder and pancreas. RADIA
[2017-12-01] MEDS ORDERED: HALOPERIDOL 5 MG/ML VIAL IVP ONE (19:41)
[2017-12-01] MEDS ORDERED: KETOROLAC 60 MG/2 ML VIAL IVP STA (20:35)
[2017-12-01] MEDS ORDERED: diphenhydrAMINE INJ 50 MG/ML VIAL IVP STA (20:35)
[2017-12-01 20:52] VITALS: BP 113/79
== END 2017-12-01 20:58 | disposition home or self-care (01) ==
LOC: ED 17:14
DX: R10.33 Periumbilical pain (principal); R03.0 Elevated blood-pressure reading, without diagnosis of hypertension
CPT/HCPCS: 74177; 80053; 81001; 81025; 83690; 85025; 96361; 96374; 96375; 99283; J1170; J1200; J2765; Q9967; 81003; 87086

== ENCOUNTER 2018-07-16 03:59 | Emergency (ER) | payer OTHER, MEDICAID ==
[2018-07-16 04:08] VITALS: BP 120/78
[2018-07-16] MEDS ORDERED: CHERRY SYRUP 10 ML UDC PO ONE (04:18)
[2018-07-16] MEDS ORDERED: IBUPROFEN 800 MG TABLET PO STA (04:18)
[2018-07-16] MEDS ORDERED: DEXAMETHASONE 10 MG/ML VIAL PO STA (04:18)
[2018-07-16] MEDS ORDERED: cephALEXin 250 MG CAPSULE PO STA (04:20)
--- NOTE | 2018-07-16 04:23 | ED Physician Documentation ---
PD HPI URI - Stated complaint Stated Complaint: EAR PX/THROAT PX - Chief complaint Chief Complaint: Heent - History obtained from History obtained from: Patient - History of Present Illness Timing - onset: Yesterday Timing duration: Days (1) Timing details: Gradual onset Pain level max: 9 Pain level now: 9 Associated symptoms: Nasal congestion, Sore throat. 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 : None HEENT: None Psych: Depression, Anxiety, Panic attacks, Claustrophobia Musculoskeletal: None Derm: Psoriasis, Other - Past Surgical History Past Surgical History: Yes - Present Medications Home Medications: Ambulatory Orders Medication Instructions Recorded Confirmed Fexofenadine HCl [Linda Allergy] 180 mg PO DAILY 09/13/15 05/11/17 Buspirone HCl 1 tab PO DAILY 04/04/17 05/11/17 Citalopram Hydrobromide 1 tab PO DAILY 04/04/17 05/11/17 [Citalopram HBr] Esomeprazole Magnesium 1 cap PO DAILY 04/04/17 05/11/17 Ondansetron Odt [Zofran] 4 mg TL Q6H PRN #20 tablet 04/04/17 05/11/17 raNITIdine [Zantac] 1 tab PO DAILY 04/04/17 05/11/17 Norethindrone-Ethinyl Estrad 1 tab PO DAILY 05/06/17 05/11/17 [Alyacen 1-35 28 Tablet] Oxycodone HCl/Acetaminophen 1 - 2 each PO Q6H PRN #20 tablet 05/17/17 [Percocet 5-325 mg Tablet] Ondansetron Odt [Zofran] 4 mg TL Q6H PRN #14 tablet 07/08/17 oxyCODONE/ACET 5/325 [Percocet 5 1 - 2 each PO Q6H PRN #14 tablet 07/08/17 mg/325 mg] Meloxicam [Mobic] 7.5 mg PO BID PRN #20 tablet 12/01/17 Ondansetron Odt [Zofran] 4 mg TL Q6H PRN #10 tablet 12/01/17 Cephalexin [Keflex] 500 mg PO Q6H #40 capsule 07/16/18 Ibuprofen [Motrin] 800 mg PO Q8H PRN #30 tablet 07/16/18 - Allergies Allergies/Adverse Reactions: Allergies Allergy/AdvReac Type Severity Reaction Status Date / Time Latex, Natural Rubber Allergy Intermediate Rash Verified 07/16/18 04:08 Penicillins Allergy Intermediate Emesis Verified 07/16/18 04:08 Tetanus Vaccines and Toxoid Allergy Intermediate Hives Verified 07/16/18 04:08 [Tetanus Vaccines & Toxoid] tioconazole [From Monistat 1] Allergy Intermediate Itching Verified 07/16/18 04:08 clindamycin Allergy Itching Verified 07/16/18 04:08 adhesive AdvReac Rash Verified 07/16/18 04:08 - Social History Does the pt smoke?: Yes Smoking Status: Current every day smoker Does the pt drink ETOH?: No Does the pt have substance abuse?: Yes - Immunizations Immunizations are current?: Yes - POLST Patient has POLST: No PD ED PE NORMAL - Vitals Vital signs reviewed: Yes - General General: Alert and oriented X 3, No acute distress, Well developed/nourished - HEENT HEENT: PERRL, Moist mucous membranes, Other (Posterior pharyngeal erythema with tonsillar exudates. Uvula midline. No trismus. Normal phonation.) - Neck Neck: Supple, no meningeal sign, Other (Shotty anterior lymphadenopathy) - Cardiac Cardiac: RRR, Strong equal pulses - Respiratory Respiratory: No respiratory distress, Clear bilaterally - Abdomen Abdomen: Soft, Non tender, Non distended - Derm Derm: Warm and dry, No rash - Neuro Neuro: Alert and oriented X 3 - Psych Psych: Normal mood, Normal affect Results - Vitals Vitals: Vital Signs - 24 hr 07/16/18 04:07 Temperature 36.8 C Heart Rate 91 Respiratory 16 Rate Blood Pressure 120/78 O2 Saturation 100 Oxygen O2 Source Room air PD MEDICAL DECISION MAKING - ED course Complexity details: reviewed results, re-evaluated patient, considered differential, d/w patient ED course: 32-year-old female presents to the emergency department with strep pharyngitis. Given dexamethasone, Motrin, cephalexin. She is allergic to penicillin, causes a rash. She is also allergic to clindamycin. She is well-appearing, nontoxic. Well-hydrated. Patient counseled regarding signs and symptoms for which I believe and urgent re-evaluation would be necessary. Patient with good unders tanding of and agreement to plan and is comfortable going home at this time This document was made in part using voice recognition software. While efforts are made to proofread this document, sound alike and grammatical errors may occur. Departure - Departure Disposition: 01 Home, Self Care Clinical Impression: Strep pharyngitis Condition: Good Instructions: ED Strep Pharyngitis Conf Follow-Up: ROSA M PADGETT MD [Primary Care Provider] - Within 1 week (if not better) Prescriptions: Cephalexin [Keflex] 500 mg PO Q6H #40 capsule Ibuprofen [Motrin] 800 mg PO Q8H PRN #30 tablet PRN Reason: PAIN &/OR FEVER Comments: Drink plenty of fluids and rest. Return if you worsen. Take all antibiotics until gone, even if you are feeling better.
== END 2018-07-16 04:32 | disposition home or self-care (01) ==
LOC: ED 03:59
DX: J02.0 Streptococcal pharyngitis (principal); F17.200 Nicotine dependence, unspecified, uncomplicated
CPT/HCPCS: 87070; 87077; 87430; 99283; A9270

== ENCOUNTER 2018-07-26 16:45 | Emergency (ER) | payer OTHER, MEDICAID ==
[2018-07-26] MEDS ORDERED: PROMETHAZINE INJ 25 MG in SODIUM CHLORIDE 0.9% 50 ML IV STA (17:12)
--- NOTE | 2018-07-26 17:12 | ED Physician Documentation ---
History of Present Illness - Stated complaint Stated Complaint: NAUSEA/HUI - Chief complaint Chief Complaint: Neuro - History obtained from History obtained from: Patient - History of Present Illness Timing: How many weeks ago (1) - Additonal information Additional information: This is a 32-year-old woman with a history of migraines for the past 6 years she takes Imitrex pills who is now approximately 6 weeks. She says that she has had a migraine and been nauseous for the past 4 days however the headache has increased to the point that she feels like her head is exploding. It is her pretty typical migraine other than she is seeing some spots in her vision. She was afraid to take the Imitrex because of the . She went in today to be seen on face by the OB to find out if she could take her Imitrex. They had her do a test but then told her they would have to schedule her for a follow-up appointment. She is felt dizzy but not passed out. She has been experiencing morning sickness. Today she has been urinating frequently but denies any burning. Even though she is been nauseous she has had no vomiting. No fever, sore throat or coughing. Review of Systems Constitutional: denies: Fever Eyes: reports: Other (Visual disturbance with spots in her vision) Throat: denies: Sore throat Cardiac: denies: Chest pain / pressure Respiratory: denies: Dyspnea, Cough GI: reports: Nausea. denies: Abdominal Pain, Vomiting : reports: Frequency Neurologic: reports: Headache. 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 : None HEENT: None Psych: Depression, Anxiety, Panic attacks, Claustrophobia Musculoskeletal: None Derm: Psoriasis, Other - Past Surgical History Past Surgical History: Yes - Present Medications Home Medications: Ambulatory Orders Medication Instructions Recorded Confirmed Fexofenadine HCl [Linda Allergy] 180 mg PO DAILY 09/13/15 05/11/17 Citalopram Hydrobromide 1 tab PO DAILY 04/04/17 05/11/17 [Citalopram HBr] Ondansetron Odt [Zofran] 4 mg TL Q6H PRN #20 tablet 04/04/17 05/11/17 RX: Buspirone HCl 1 tab PO DAILY 04/04/17 05/11/17 RX: Esomeprazole Magnesium 1 cap PO DAILY 04/04/17 05/11/17 raNITIdine [Zantac] 1 tab PO DAILY 04/04/17 05/11/17 RX: Norethindrone-Ethinyl Estrad 1 tab PO DAILY 05/06/17 05/11/17 [Alyacen 1-35 28 Tablet] Oxycodone HCl/Acetaminophen 1 - 2 each PO Q6H PRN #20 tablet 05/17/17 [Percocet 5-325 mg Tablet] Ondansetron Odt [Zofran] 4 mg TL Q6H PRN #14 tablet 07/08/17 oxyCODONE/ACET 5/325 [Percocet 5 1 - 2 each PO Q6H PRN #14 tablet 07/08/17 mg/325 mg] Meloxicam [Mobic] 7.5 mg PO BID PRN #20 tablet 12/01/17 Ondansetron Odt [Zofran] 4 mg TL Q6H PRN #10 tablet 12/01/17 Cephalexin [Keflex] 500 mg PO Q6H #40 capsule 07/16/18 Ibuprofen [Motrin] 800 mg PO Q8H PRN #30 tablet 07/16/18 Ondansetron Odt [Zofran] 4 mg TL Q6H PRN #6 tablet 07/26/18 - Allergies Allergies/Adverse Reactions: Allergies Allergy/AdvReac Type Severity Reaction Status Date / Time Latex, Natural Rubber Allergy Intermediate Rash Verified 07/26/18 17:07 Penicillins Allergy Intermediate Emesis Verified 07/26/18 17:07 Tetanus Vaccines and Toxoid Allergy Intermediate Hives Verified 07/26/18 17:07 [Tetanus Vaccines & Toxoid] tioconazole [From Monistat 1] Allergy Intermediate Itching Verified 07/26/18 17:07 clindamycin Allergy Itching Verified 07/26/18 17:07 adhesive AdvReac Rash Verified 07/26/18 17:07 - Social History Does the pt smoke?: Yes Smoking Status: Current every day smoker Does the pt drink ETOH?: No Does the pt have substance abuse?: Yes - Immunizations Immunizations are current?: Yes - POLST Patient has POLST: No PD ED PE NORMAL - Vitals Vital signs reviewed: Yes - General General: Alert and oriented X 3, No acute distress, Well developed/nourished - HEENT HEENT: Atraumatic, PERRL, EOMI, Other (Dry mucous membranes) - Neck Neck: Supple, no meningeal sign, No adenopathy - Cardiac Cardiac: RRR, No murmur - Respiratory Respiratory: No respiratory distress, Clear bilaterally - Abdomen Abdomen: Normal bowel sounds, Soft, Non tender - Derm Derm: Normal color, Warm and dry, No rash - Neuro Neuro: Alert and oriented X 3, 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, No motor deficit, No sensory deficit, Normal speech - Psych Psych: Normal mood, Normal affect Results - Vitals Vitals: Vital Signs - 24 hr 07/26/18 07/26/18 07/26/18 16:50 19:32 21:13 Temperature 36.5 C 37.5 C 36 C L Heart Rate 93 83 76 Respiratory 18 14 17 Rate Blood Pressure 139/93 H 105/71 112/56 L O2 Saturation 100 100 98 07/26/18 07/26/18 21:30 22:10 Temperature 36.3 C L Heart Rate 67 78 Respiratory 16 14 Rate Blood Pressure 117/69 117/74 O2 Saturation 100 100 Oxygen O2 Source Room air - Labs Labs: Laboratory Tests 07/26/18 07/26/18 07/26/18 17:30 17:33 17:33 WBC 8.5 RBC 4.05 L Hgb 12.3 Hct 36.8 L MCV 90.7 MCH 30.4 MCHC 33.6 RDW 12.8 Plt Count 190 MPV 8.1 Neut # (Auto) 6.2 Lymph # (Auto) 1.8 [place] # (Auto) 0.4 Eos # (Auto) 0.0 Baso # (Auto) 0.0 Absolute Nucleated RBC 0.01 Nucleated RBC % 0.1 Sodium 137 Potassium 3.6 Chloride 101 Carbon Dioxide 23 Anion Gap 13.0 BUN 7 Creatinine 0.7 Estimated GFR (MDRD) 97 Glucose 93 Calcium 9.4 Total Bilirubin 0.6 AST 21 ALT 16 Alkaline Phosphatase 43 Total Protein 7.5 Albumin 4.5 Globulin 3.0 Albumin/Globulin Ratio 1.5 Lipase 28 Serum HCG, Qual Urine Color YELLOW Urine Clarity CLEAR Urine pH 6.0 Ur Specific [place] <=1.005 Urine Protein NEGATIVE Urine Glucose (UA) NEGATIVE Urine Ketones 15 H Urine Occult Blood NEGATIVE Urine Nitrite NEGATIVE Urine Bilirubin NEGATIVE Urine Urobilinogen 0.2 (NORMAL) Ur Leukocyte Esterase NEGATIVE Ur Microscopic Review NOT INDICATED Urine Culture Comments NOT INDICATED Urine HCG, Qual NEGATIVE 07/26/18 17:33 WBC RBC Hgb Hct MCV MCH MCHC RDW Plt Count MPV Neut # (Auto) Lymph # (Auto) [place] # (Auto) Eos # (Auto) Baso # (Auto) Absolute Nucleated RBC Nucleated RBC % Sodium Potassium Chloride Carbon Dioxide Anion Gap BUN Creatinine Estimated GFR (MDRD) Glucose Calcium Total Bilirubin AST ALT Alkaline Phosphatase Total Protein Albumin Globulin Albumin/Globulin Ratio Lipase Serum HCG, Qual POSITIVE Urine Color Urine Clarity Urine pH Ur Specific [place] Urine Protein Urine Glucose (UA) Urine Ketones Urine Occult Blood Urine Nitrite Urine Bilirubin Urine Urobilinogen Ur Leukocyte Esterase Ur Microscopic Review Urine Culture Comments Urine HCG, Qual PD MEDICAL DECISION MAKING - ED course Complexity details: re-evaluated patient, d/w patient, d/w family ED course: Patient has had a long-standing history of headaches. Initial dosing with Phenergan and a liter of D5 normal saline did not even touch her headache. She was given Zofran 4 mg IV and then after obtaining the serum test was given 2 mg of morphine. Did not feel that Imitrex would be safe during although we also talked about these other medications potentially passing through placenta to which she stated that "she needed something to not feel this way". [place] primary care provider for recommendations of headache treatment while . Departure - Departure Disposition: 01 Home, Self Care Clinical Impression: Head ache, Condition: Good Instructions: ED Headache Migraine Follow-Up: ROSA M PADGETT MD [Primary Care Provider] - [facility] [Provider Group] Prescriptions: Ondansetron Odt [Zofran] 4 mg TL Q6H PRN #6 tablet PRN Reason: Nausea / Vomiting Comments: Contact the OB clinic tomorrow to schedule for follow-up. Zofran if needed for nausea or vomiting. Discharge Date/Time: 07/26/18 22:23
[2018-07-26 17:40] LABS: BASOPHILS % (AUTO) 0.1 %; EOSINOPHILS % (AUTO) 0.1 %; HGB - HEMOGLOBIN 12.3 g/dL (12.0-16.0); LYMPHOCYTES # (AUTO) 1.8 10^3/uL (1.5-3.5); LYMPHOCYTES % (AUTO) 21.3 %; MEAN CORPUSCULAR HEMOGLOBIN 30.4 pg (27.0-31.0); MEAN CORPUSCULAR HGB CONC 33.6 g/dL (32.0-36.0); MEAN CORPUSCULAR VOLUME 90.7 fL (81.0-99.0); MEAN PLATELET VOLUME 8.1 fL (7.9-10.8); MONOCYTES # (AUTO) 0.4 10^3/uL (0.0-1.0); MONOCYTES % (AUTO) 5.1 %; NEUTROPHILS # (AUTO) 6.2 10^3/uL (1.5-6.6); NEUTROPHILS % (AUTO) 73.4 %; PLT - PLATELET COUNT 190 10^3/uL (130-450); RED BLOOD COUNT 4.05 10^6/uL (4.20-5.40); RED CELL DISTRIBUTION WIDTH 12.8 % (12.0-15.0); WHITE BLOOD COUNT 8.5 x10^3/uL (4.8-10.8)
[2018-07-26 17:50] LABS: ALBUMIN 4.5 g/dL (3.2-5.5); ALBUMIN/GLOBULIN RATIO 1.5 (1.0-2.2); BILIRUBIN,TOTAL 0.6 mg/dL (0.2-1.0); CALCIUM 9.4 mg/dL (8.5-10.3); CREATININE 0.7 mg/dL (0.4-1.0); TOTAL PROTEIN 7.5 g/dL (6.7-8.2)
[2018-07-26 17:53] LABS: BILIRUBIN,URINE NEGATIVE (NEGATIVE); GLUCOSE, URINE (UA) NEGATIVE (NEGATIVE); KETONES,URINE (UA) 15 mg/dL (NEGATIVE); LEUKOCYTE ESTERASE, URINE NEGATIVE (NEGATIVE); NITRITE,URINE NEGATIVE (NEGATIVE); OCCULT BLOOD,URINE NEGATIVE (NEGATIVE); PROTEIN,URINE NEGATIVE (NEGATIVE); UROBILINOGEN,URINE 0.2 (NORMAL) E.U./dL (NORMAL)
[2018-07-26 17:54] LABS: CLARITY,URINE CLEAR (CLEAR); HCG UR QUAL NEGATIVE
[2018-07-26] MEDS ORDERED: DEXTROSE 5%-0.9% NACL 1,000 ML IV SCH (18:00)
[2018-07-26 20:04] LABS: HCG,QUALITATIVE BLOOD POSITIVE
[2018-07-26] MEDS ORDERED: ONDANSETRON 4 MG/2 ML VIAL IVP STA (20:14)
[2018-07-26] MEDS ORDERED: SODIUM CHLORIDE 0.9% 1,000 ML IV ONE (20:47)
[2018-07-26] MEDS ORDERED: HYDROmorphone 1 MG/ML CARPUJECT IVP STA (20:49)
[2018-07-26] MEDS ORDERED: ONDANSETRON ODT 4 MG TABLET TL STA (21:47)
[2018-07-26 22:10] VITALS: BP 117/74
== END 2018-07-26 22:23 | disposition home or self-care (01) ==
LOC: ED 16:45
DX: O99.89 Other specified diseases and conditions complicating pregnancy, childbirth and the puerperium (principal); R51 Headache; F17.200 Nicotine dependence, unspecified, uncomplicated
CPT/HCPCS: 36415; 80053; 81003; 81025; 83690; 84703; 85025; 96361; 96365; 96375; 99283; J1170; J7040; Q0162; 81001; 87086

== ENCOUNTER 2018-08-14 20:27 | Emergency (ER) | payer OTHER, MEDICAID ==
--- NOTE | 2018-08-14 20:48 | ED Physician Documentation ---
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 She is having some cramping and she is concerned about the possibility of miscarriage. She has been seen in the emergency department earlier for migraine headache which has resolved and she continues to have some morning sickness. She has had some vomiting she has been able to drink Rosalino-Aid she feels that she has been able to maintain her hydration. Review of Systems Constitutional: denies: Fever Eyes: denies: Decreased vision Ears: denies: Ear pain Nose: denies: Rhinorrhea / runny nose, Congestion Throat: denies: Sore throat Cardiac: denies: Chest pain / pressure, Palpitations Respiratory: denies: Dyspnea, Cough GI: reports: Nausea, Vomiting. denies: Abdominal Pain : reports: Vaginal bleeding, Now EGA. 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 : None HEENT: None Psych: Depression, Anxiety, Panic attacks, Claustrophobia Musculoskeletal: None Derm: Psoriasis, Other - Past Surgical History Past Surgical History: Yes - Present Medications Home Medications: Ambulatory Orders Medication Instructions Recorded Confirmed Citalopram Hydrobromide 1 tab PO DAILY 04/04/17 05/11/17 [Citalopram HBr] Ondansetron Odt [Zofran] 8 mg TL TID 08/14/18 diphenhydrAMINE [Benadryl] 25 mg PO DAILY 08/14/18 08/14/18 - Allergies Allergies/Adverse Reactions: Allergies Allergy/AdvReac Type Severity Reaction Status Date / Time Latex, Natural Rubber Allergy Intermediate Rash Verified 08/14/18 20:32 Penicillins Allergy Intermediate Emesis Verified 08/14/18 20:32 Tetanus Vaccines and Toxoid Allergy Intermediate Hives Verified 08/14/18 20:32 [Tetanus Vaccines & Toxoid] tioconazole [From Monistat 1] Allergy Intermediate Itching Verified 08/14/18 20:32 clindamycin Allergy Itching Verified 08/14/18 20:32 adhesive AdvReac Rash Verified 08/14/18 20:32 - Social History Does the pt smoke?: Yes Smoking Status: Current every day smoker Does the pt drink ETOH?: No Does the pt have substance abuse?: Yes - Immunizations Immunizations are current?: Yes - POLST Patient has POLST: No PD ED PE NORMAL - Vitals Vital signs reviewed: Yes (hypertension ) - General General: Alert and oriented X 3, No acute distress, Well developed/nourished, 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) - HEENT HEENT: Atraumatic, PERRL, EOMI - Neck Neck: Supple, no meningeal sign, No bony TTP - Cardiac Cardiac: RRR, No murmur - Respiratory Respiratory: No respiratory distress - Abdomen Abdomen: Soft, Non tender - Back Back: No CVA TTP, No spinal TTP - Derm Derm: Normal color, Warm and dry, No rash - Extremities Extremities: No deformity, No edema, No calf tenderness / cord - Neuro Neuro: Alert and oriented X 3, paradi operator 2-12 intact, No motor deficit, No sensory deficit, Normal speech Eye Opening: Spontaneous Motor: Obeys Commands Verbal: Oriented GCS Score: 15 - Psych Psych: Normal mood, Normal affect Results - Vitals Vitals: Vital Signs - 24 hr 08/14/18 20:29 Temperature 37.1 C Heart Rate 93 Respiratory 17 Rate Blood Pressure 135/77 H O2 Saturation 100 Oxygen O2 Source Room air - Labs Labs: Laboratory Tests 08/14/18 20:48 Urine Color YELLOW Urine Clarity CLEAR Urine pH 6.0 Ur Specific [place] >=1.030 H Urine Protein NEGATIVE Urine Glucose (UA) NEGATIVE Urine Ketones NEGATIVE Urine Occult Blood SMALL H Urine Nitrite NEGATIVE Urine Bilirubin NEGATIVE Urine Urobilinogen 0.2 (NORMAL) Ur Leukocyte Esterase NEGATIVE Urine RBC 0-5 Urine WBC 0-3 Ur Squamous Epith Cells RARE Squamous Urine Bacteria None Seen Ur Microscopic Review INDICATED Urine Culture Comments NOT INDICATED Procedures - Bedside sono Bedside sono by EMP: With use of bedside ultrasound the pelvis is imaged there is the appearance of an intrauterine with a viable badillo fetus with a crown-rump length indicating a gestational age of 7 weeks 5 days. There is cardiac activity apparent rate is not monitored. - IVC sono (time) 2039 Bedside IVC sono: IVC measures (cm) (1.28 does not collapse completely), Dehydration (est <500ml deficit) PD MEDICAL DECISION MAKING - ED course Complexity details: reviewed results, re-evaluated patient, considered differential, d/w patient ED course: 32-year-old female 8 weeks has developed cramping and bleeding does not have urinary tract infection she is mildly dehydrated. She does appear to have a viable badillo intrauterine and I have given her reassurance of the statistical probability of carrying her to term and we will provide her with some instructions on threatened miscarriage. She will have follow-up with OB in 2 weeks time. Departure - Departure Disposition: 01 Home, Self Care Clinical Impression: Threatened miscarriage in early , Dehydration Condition: Stable Instructions: ED Miscarriage Poss, ED Dehydration Follow-Up: ROSA M PADGETT MD [Primary Care Provider] -
[2018-08-14 21:15] LABS: BILIRUBIN,URINE NEGATIVE (NEGATIVE); GLUCOSE, URINE (UA) NEGATIVE (NEGATIVE); KETONES,URINE (UA) NEGATIVE (NEGATIVE); LEUKOCYTE ESTERASE, URINE NEGATIVE (NEGATIVE); NITRITE,URINE NEGATIVE (NEGATIVE); OCCULT BLOOD,URINE SMALL (NEGATIVE); PROTEIN,URINE NEGATIVE (NEGATIVE); UROBILINOGEN,URINE 0.2 (NORMAL) E.U./dL (NORMAL)
[2018-08-14 21:17] LABS: CLARITY,URINE CLEAR (CLEAR)
[2018-08-14 21:37] LABS: BACTERIA,URINE None Seen /HPF (None Seen); RBC,URINE 0-5 /HPF (0-5); SQUAMOUS EPITHELIAL CELL,UR RARE Squamous (<= Few)
[2018-08-14 22:01] VITALS: BP 118/80
== END 2018-08-14 22:00 | disposition home or self-care (01) ==
LOC: ED 20:27
DX: O20.0 Threatened abortion (principal); O99.281 Endocrine, nutritional and metabolic diseases complicating pregnancy, first trimester; O21.1 Hyperemesis gravidarum with metabolic disturbance; E86.0 Dehydration; O99.331 Smoking (tobacco) complicating pregnancy, first trimester; F17.200 Nicotine dependence, unspecified, uncomplicated; Z3A.01 Less than 8 weeks gestation of pregnancy
CPT/HCPCS: 81001; 81003; 87086; 99283; 99284

== ENCOUNTER 2018-08-24 11:29 | Emergency (ER) | payer OTHER, MEDICAID ==
[2018-08-24 12:30] LABS: BILIRUBIN,URINE NEGATIVE (NEGATIVE); GLUCOSE, URINE (UA) NEGATIVE (NEGATIVE); KETONES,URINE (UA) NEGATIVE (NEGATIVE); LEUKOCYTE ESTERASE, URINE TRACE (NEGATIVE); NITRITE,URINE NEGATIVE (NEGATIVE); OCCULT BLOOD,URINE NEGATIVE (NEGATIVE); PROTEIN,URINE NEGATIVE (NEGATIVE); UROBILINOGEN,URINE 0.2 (NORMAL) E.U./dL (NORMAL)
[2018-08-24 12:34] LABS: CLARITY,URINE SL (CLEAR)
[2018-08-24 12:37] LABS: HCG UR QUAL POSITIVE
[2018-08-24 12:53] LABS: AMORPHOUS SEDIMENT,UR Moderate /LPF; BACTERIA,URINE Moderate /HPF (None Seen); RBC,URINE None Seen /HPF (0-5); SQUAMOUS EPITHELIAL CELL,UR MOD Squamous (<= Few)
[2018-08-24 13:51] VITALS: BP 120/84
[2018-08-24] MEDS ORDERED: NITROFURANTOIN MACRO 100 MG CAPSULE PO STA (14:09)
--- NOTE | 2018-08-24 14:11 | ED Physician Documentation ---
History of Present Illness - Stated complaint Stated Complaint: 10 WKS PREG UNABLE TO URINATE - Chief complaint Chief Complaint: General - History obtained from History obtained from: Patient, Family - History of Present Illness Timing: Today Pain level max: 5 Pain level now: 3 - Additonal information Additional information: 32-year-old female states that for the past several days has been having some pain with urination, today feels like she cannot empty her bladder and states that she is only "dribbling". She is , 5 para 3. Approximately 10 weeks along. No vaginal bleeding or discharge. No fevers. No vomiting. Worse with urination. Nothing makes it better. 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 : None HEENT: None Psych: Depression, Anxiety, Panic attacks, Claustrophobia Musculoskeletal: None Derm: Psoriasis, Other - Past Surgical History Past Surgical History: Yes - Present Medications Home Medications: Ambulatory Orders Medication Instructions Recorded Confirmed Citalopram Hydrobromide 1 tab PO DAILY 04/04/17 05/11/17 [Citalopram HBr] Ondansetron Odt [Zofran] 8 mg TL TID 08/14/18 diphenhydrAMINE [Benadryl] 25 mg PO DAILY 08/14/18 08/14/18 Nitrofurantoin Monohyd/M-Cryst 100 mg PO BID #10 capsule 08/24/18 [Macrobid 100 mg Capsule] - Allergies Allergies/Adverse Reactions: Allergies Allergy/AdvReac Type Severity Reaction Status Date / Time Latex, Natural Rubber Allergy Intermediate Rash Verified 08/24/18 11:51 Penicillins Allergy Intermediate Emesis Verified 08/24/18 11:51 Tetanus Vaccines and Toxoid Allergy Intermediate Hives Verified 08/24/18 11:51 [Tetanus Vaccines & Toxoid] tioconazole [From Monistat 1] Allergy Intermediate Itching Verified 08/24/18 11:51 clindamycin Allergy Itching Verified 08/24/18 11:51 adhesive AdvReac Rash Verified 08/24/18 11:51 - Social History Does the pt smoke?: Yes Smoking Status: Current every day smoker Does the pt drink ETOH?: No Does the pt have substance abuse?: Yes - Immunizations Immunizations are current?: Yes - POLST Patient has POLST: No PD ED PE NORMAL - Vitals Vital signs reviewed: Yes - General General: Alert and oriented X 3, No acute distress - HEENT HEENT: Moist mucous membranes - Neck Neck: Supple, no meningeal sign - Cardiac Cardiac: RRR - Respiratory Respiratory: No respiratory distress, Clear bilaterally - Abdomen Abdomen: Soft, Non tender, Non distended - Back Back: No CVA TTP - Derm Derm: Warm and dry - Extremities Extremities: No edema - Neuro Neuro: Alert and oriented X 3 Results - Vitals Vitals: Vital Signs - 24 hr 08/24/18 08/24/18 11:44 11:51 Temperature 36.9 C Heart Rate 109 H 77 Respiratory 18 16 Rate Blood Pressure 146/87 H 120/84 H O2 Saturation 100 100 Oxygen O2 Source Room air - Labs Labs: Laboratory Tests 08/24/18 12:22 Urine Color YELLOW Urine Clarity SL Urine pH 6.0 Ur Specific [place] 1.015 Urine Protein NEGATIVE Urine Glucose (UA) NEGATIVE Urine Ketones NEGATIVE Urine Occult Blood NEGATIVE Urine Nitrite NEGATIVE Urine Bilirubin NEGATIVE Urine Urobilinogen 0.2 (NORMAL) Ur Leukocyte Esterase TRACE H Urine RBC None Seen Urine WBC 0-3 Ur Squamous Epith Cells MOD Squamous H Amorphous Sediment Moderate Urine Bacteria Moderate H Ur Microscopic Review INDICATED Urine Culture Comments NOT INDICATED Urine HCG, Qual POSITIVE PD MEDICAL DECISION MAKING - ED course Complexity details: reviewed results, considered differential, d/w patient, d/w family ED course: Patient is approximately 10 weeks . Appears to have UTI. Will place on Macrobid. She is well-appearing, nontoxic. Bladder scan reveals 100 mL in her bladder. Patient counseled regarding signs and symptoms for which I believe and urgent re-evaluation would be necessary. Patient with good understanding of and agreement to plan and is comfortable going home at this time This document was made in part using voice recognition software. While efforts are made to proofread this document, sound alike and grammatical errors may oc cur. Departure - Departure Disposition: 01 Home, Self Care Clinical Impression: UTI (urinary tract infection) Qualifiers: Urinary tract infection type: acute cystitis Hematuria presence: without hematuria Qualified Code(s): N30.00 - Acute cystitis without hematuria Condition: Good Instructions: ED UTI Cystitis Female Follow-Up: ROSA M PADGETT MD [Primary Care Provider] - Within 1 week Prescriptions: Nitrofurantoin Monohyd/M-Cryst [Macrobid 100 mg Capsule] 100 mg PO BID #10 capsule Comments: Take all antibiotics until gone. Return if you worsen. Follow-up with your doctor for further care.
== END 2018-08-24 14:21 | disposition home or self-care (01) ==
LOC: ED 11:29
DX: O23.11 Infections of bladder in pregnancy, first trimester (principal); Z3A.10 10 weeks gestation of pregnancy; F17.200 Nicotine dependence, unspecified, uncomplicated
CPT/HCPCS: 81001; 81003; 81025; 87086; 99283

== ENCOUNTER 2018-10-18 18:02 | Emergency (ER) | payer OTHER, MEDICAID ==
[2018-10-18 18:25] LABS: BASOPHILS % (AUTO) 0.2 %; EOSINOPHILS # (AUTO) 0.1 10^3/uL (0.0-0.7); EOSINOPHILS % (AUTO) 0.5 %; HGB - HEMOGLOBIN 10.5 g/dL (12.0-16.0); LYMPHOCYTES # (AUTO) 1.8 10^3/uL (1.5-3.5); LYMPHOCYTES % (AUTO) 19.7 %; MEAN CORPUSCULAR HEMOGLOBIN 32.1 pg (27.0-31.0); MEAN CORPUSCULAR HGB CONC 33.9 g/dL (32.0-36.0); MEAN CORPUSCULAR VOLUME 94.8 fL (81.0-99.0); MEAN PLATELET VOLUME 10.1 fL (7.9-10.8); MONOCYTES # (AUTO) 0.5 10^3/uL (0.0-1.0); MONOCYTES % (AUTO) 5.6 %; NEUTROPHILS # (AUTO) 6.8 10^3/uL (1.5-6.6); NEUTROPHILS % (AUTO) 73.5 %; PLT - PLATELET COUNT 144 10^3/uL (130-450); RED BLOOD COUNT 3.27 10^6/uL (4.20-5.40); RED CELL DISTRIBUTION WIDTH 13.1 % (12.0-15.0); WHITE BLOOD COUNT 9.3 x10^3/uL (4.8-10.8)
--- NOTE | 2018-10-18 18:33 | ED Physician Documentation ---
History of Present Illness - Stated complaint Stated Complaint: 18 WKS/CRAMPING - Chief complaint Chief Complaint: Abd Pain - History obtained from History obtained from: Patient, Family - History of Present Illness Timing: How many hours ago (2) Pain level max: 7 Pain level now: 5 - Additonal information Additional information: 32-year-old female complains of abdominal cramping today. This been ongoing for the past 2 hours. Nothing makes it better or worse. She states that when the cramping is severe, she feels short of breath. She is 5, para 3. No vaginal bleeding or fluid leakage. No vomiting or diarrhea. Review of Systems Ten Systems: 10 systems reviewed and negative Constitutional: denies: Fever, Chills Cardiac: denies: Chest pain / pressure Respiratory: denies: Cough GI: denies: Vomiting : reports: Now EGA (18wks). 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 : None HEENT: None Psych: Depression, Anxiety, Panic attacks, Claustrophobia Musculoskeletal: None Derm: Psoriasis, Other - Past Surgical History Past Surgical History: Yes - Present Medications Home Medications: Ambulatory Orders Medication Instructions Recorded Confirmed Citalopram Hydrobromide 1 tab PO DAILY 04/04/17 05/11/17 [Citalopram HBr] Ondansetron Odt [Zofran] 8 mg TL TID 08/14/18 diphenhydrAMINE [Benadryl] 25 mg PO DAILY 08/14/18 08/14/18 Nitrofurantoin Monohyd/M-Cryst 100 mg PO BID #10 capsule 08/24/18 [Macrobid 100 mg Capsule] Metoclopramide [Reglan] 10 mg PO 10/18/18 Nitrofurantoin Monohyd/M-Cryst 100 mg PO BID #10 capsule 10/18/18 [Macrobid 100 mg Capsule] - Allergies Allergies/Adverse Reactions: Allergies Allergy/AdvReac Type Severity Reaction Status Date / Time Latex, Natural Rubber Allergy Intermediate Rash Verified 08/24/18 11:51 Penicillins Allergy Intermediate Emesis Verified 08/24/18 11:51 Tetanus Vaccines and Toxoid Allergy Intermediate Hives Verified 08/24/18 11:51 [Tetanus Vaccines & Toxoid] tioconazole [From Monistat 1] Allergy Intermediate Itching Verified 08/24/18 11:51 clindamycin Allergy Itching Verified 08/24/18 11:51 adhesive AdvReac Rash Verified 10/18/18 18:06 - Social History Does the pt smoke?: Yes Smoking Status: Current every day smoker Does the pt drink ETOH?: No Does the pt have substance abuse?: Yes - Immunizations Immunizations are current?: Yes - POLST Patient has POLST: No PD ED PE NORMAL - Vitals Vital signs reviewed: Yes - General General: Alert and oriented X 3, No acute distress, Well developed/nourished - HEENT HEENT: PERRL, Moist mucous membranes - Neck Neck: Supple, no meningeal sign - Cardiac Cardiac: RRR, Strong equal pulses - Respiratory Respiratory: No respiratory distress, Clear bilaterally - Abdomen Abdomen: Soft, Non tender, Non distended - Back Back: No CVA TTP, No spinal TTP - Derm Derm: Warm and dry - Extremities Extremities: No edema - Neuro Neuro: Alert and oriented X 3 - Psych Psych: Normal mood, Normal affect Results - Vitals Vitals: Oxygen O2 Source Room air - Labs Labs: Laboratory Tests 10/18/18 10/18/18 10/18/18 18:20 18:20 18:50 WBC 9.3 RBC 3.27 L Hgb 10.5 L Hct 31.0 L MCV 94.8 MCH 32.1 H MCHC 33.9 RDW 13.1 Plt Count 144 MPV 10.1 Neut # (Auto) 6.8 H Lymph # (Auto) 1.8 [place] # (Auto) 0.5 Eos # (Auto) 0.1 Baso # (Auto) 0.0 Absolute Nucleated RBC 0.00 Nucleated RBC % 0.0 Sodium 137 Potassium 3.4 L Chloride 104 Carbon Dioxide 23 Anion Gap 10.0 BUN 7 Creatinine 0.7 Estimated GFR (MDRD) 97 Glucose 134 H Calcium 9.1 Total Bilirubin 0.3 AST 19 ALT 14 Alkaline Phosphatase 47 Total Protein 6.6 L Albumin 3.3 Globulin 3.3 Albumin/Globulin Ratio 1.0 Lipase 28 Urine Color YELLOW Urine Clarity HAZY Urine pH 5.5 Ur Specific [place] <=1.005 Urine Protein NEGATIVE Urine Glucose (UA) 100 H Urine Ketones NEGATIVE Urine Occult Blood NEGATIVE Urine Nitrite NEGATIVE Urine Bilirubin NEGATIVE Urine Urobilinogen 0.2 (NORMAL) Ur Leukocyte Esterase TRACE H Urine RBC None Seen Urine WBC 6-10 H Ur Squamous Epith Cells MOD Squamous H Urine Bacteria Moderate H Ur Microscopic Review INDICATED Urine Culture Comments NOT INDICATED PD MEDICAL DECISION MAKING - ED course Complexity details: reviewed results, re-evaluated patient, considered differential, d/w patient, d/w family ED course: 32-year-old female, 18 weeks with intermittent abdominal pain. Bedside ultrasound reveals an intrauterine with good movement. heart rate of approximately 154 bpm. Images were shown to patient and the father of the child. She declines any pain medication here. She does have a UTI and will treat for this. Otherwise normal laboratory studies. Abdomen is soft, nontender nondistended. Patient counseled regarding signs and symptoms for which I believe and urgent re-evaluation would be necessary. Patient with good understanding of and agreement to plan and is comfortable going home at this time This document was made in part using voice recognition software. While efforts are made to proofread this document, sound alike and grammatical errors may occur. No vaginal bleeding or fluid leakage Departure - Departure Disposition: 01 Home, Self Care Clinical Impression: Abdominal pain affecting UTI (urinary tract infection) Qualifiers: Urinary tract infection type: acute cystitis Hematuria presence: without hematuria Qualified Code(s): N30.00 - Acute cystitis without hematuria Instructions: ED Care, ED UTI Cystitis Female Follow-Up: ROSA M PADGETT MD [Primary Care Provider] - Within 3 Days Prescriptions: Nitrofurantoin Monohyd/M-Cryst [Macrobid 100 mg Capsule] 100 mg PO BID #10 capsule Comments: The cause of your cramping is unclear. You can use Tylenol or Motrin as needed for pain. Your ultrasound appears to be normal today. You do have a bladder infection and we will treat you for this. Return if you worsen Discharge Date/Time: 10/18/18 20:17
[2018-10-18 18:39] LABS: ALBUMIN 3.3 g/dL (3.2-5.5); BILIRUBIN,TOTAL 0.3 mg/dL (0.2-1.0); CALCIUM 9.1 mg/dL (8.5-10.3); CREATININE 0.7 mg/dL (0.4-1.0); TOTAL PROTEIN 6.6 g/dL (6.7-8.2)
[2018-10-18 19:10] LABS: BILIRUBIN,URINE NEGATIVE (NEGATIVE); GLUCOSE, URINE (UA) 100 mg/dL (NEGATIVE); KETONES,URINE (UA) NEGATIVE (NEGATIVE); LEUKOCYTE ESTERASE, URINE TRACE (NEGATIVE); NITRITE,URINE NEGATIVE (NEGATIVE); OCCULT BLOOD,URINE NEGATIVE (NEGATIVE); PH,URINE 5.5 PH (5.0-7.5); PROTEIN,URINE NEGATIVE (NEGATIVE); UROBILINOGEN,URINE 0.2 (NORMAL) E.U./dL (NORMAL)
[2018-10-18 19:25] LABS: CLARITY,URINE HAZY (CLEAR)
[2018-10-18 19:39] LABS: BACTERIA,URINE Moderate /HPF (None Seen); RBC,URINE None Seen /HPF (0-5); SQUAMOUS EPITHELIAL CELL,UR MOD Squamous (<= Few)
[2018-10-18 19:43] VITALS: BP 104/60
[2018-10-18] MEDS ORDERED: NITROFURANTOIN MACRO 100 MG CAPSULE PO STA (19:54)
== END 2018-10-18 20:17 | disposition home or self-care (01) ==
LOC: ED 18:02
DX: O23.12 Infections of bladder in pregnancy, second trimester (principal); O99.89 Other specified diseases and conditions complicating pregnancy, childbirth and the puerperium; R10.9 Unspecified abdominal pain; O99.332 Smoking (tobacco) complicating pregnancy, second trimester; Z3A.18 18 weeks gestation of pregnancy
CPT/HCPCS: 36415; 80053; 81001; 83690; 85025; 99283; 99284; A9270; 81003; 87086

== ENCOUNTER 2018-11-25 12:49 | Outpatient (CLI) | payer OTHER, MEDICAID ==
[2018-11-25 13:17] VITALS: BP 130/74
[2018-11-25 14:03] LABS: BILIRUBIN,URINE NEGATIVE (NEGATIVE); GLUCOSE, URINE (UA) NEGATIVE (NEGATIVE); KETONES,URINE (UA) NEGATIVE (NEGATIVE); LEUKOCYTE ESTERASE, URINE NEGATIVE (NEGATIVE); NITRITE,URINE NEGATIVE (NEGATIVE); OCCULT BLOOD,URINE NEGATIVE (NEGATIVE); PROTEIN,URINE NEGATIVE (NEGATIVE); UROBILINOGEN,URINE 0.2 (NORMAL) E.U./dL (NORMAL)
[2018-11-25 14:12] LABS: BACTERIA,URINE None Seen /HPF (None Seen); CLARITY,URINE CLEAR (CLEAR); RBC,URINE None Seen /HPF (0-5); SQUAMOUS EPITHELIAL CELL,UR MOD Squamous (<= Few)
[2018-11-25 16:06] LABS: CANDIDA GROUP DNA POSITIVE (NEGATIVE); CANDIDA KRUSEI DNA NEGATIVE (NEGATIVE); TRICHOMONAS VAGINALIS DNA NEGATIVE (NEGATIVE)
--- NOTE | 2018-11-25 16:16 | Ultrasound Report ---
Reason: cramping Procedure Date: 11/25/2018 Accession Number: [id number] / [id number] Procedure: US - OB Transvaginal CPT Code: FULL RESULT: EXAM: FIRST TRIMESTER OBSTETRIC ULTRASOUND (Less than 11 weeks) EXAM DATE: 11/25/2018 03:39 PM. CLINICAL HISTORY: Cramping. Limited examination to evaluate the cervical canal. LMP: Unknown. COMPARISONS: None. TECHNIQUE: Limited transvaginal ultrasound examination with static image documentation. CLINICAL DATES: EGA 23 weeks 3 days with FILIPPO 03/21/2019 based on referring physician provided. ASSESSMENT: Cardiac activity: 144 beats per minute. Yolk sac: Not evaluated. Amniotic fluid: Not evaluated.. Early placenta: Not evaluated. Other: Cephalic presentation. MATERNAL STRUCTURES: Uterus: Limited evaluation. Cervix: Cervix is closed. Length of canals 4.5 cm.. Adnexa: Not evaluated. Free Fluid: No obvious. Other: None. IMPRESSION: 1. Single viable intrauterine with cephalic presentation; EGA 23 weeks 3 days with FILIPPO 03/21/2019 based on referring physician provided. 2. The cervical canal is closed with length of 4.5 cm. RADIA
--- NOTE | 2018-11-25 17:09 | Labor Flowsheet ---
Labor Flowsheet Datetime Report Generated by CPN: 11/25/2018 17:09 Datetime: 11/25/2018 13:04 Pulse: 100 SpO2 (%): 99 Datetime: 11/25/2018 13:00 VITAL SIGNS NBP Sys/Dana/Mean (mmHg): 130 : 74 : 83
[2018-11-25 21:40] LABS: TRICHOMONAS VAGINALIS DNA NEGATIVE (NEGATIVE)
--- NOTE | 2018-11-28 23:21 | PROVIDER PROGRESS NOTE ---
- HPI Chief Complaint: Other (Patient is a 32-year-old G5, P3 at 23 weeks 3 days estimated gestational age followed by [facility]. She presents with abdominal pain and cramping. She has been treated recently for a urinary tract infection this . She notes a pulling sensation in her abdomen and general cramping. She has a history of a prior umbilical hernia repair. Endorses movement. Denies loss of fluid or vaginal bleeding.) Current : Current EDU 03/21/19 Gestation 23 Weeks and 3 Days 4 Para 3 Vital Signs Temperature 99.0 F 11/25/18 13:16 Heart Rate 102 H 11/25/18 13:16 Respiratory Rate 16 11/25/18 13:16 Blood Pressure 130/74 11/25/18 13:16 O2 Saturation 100 11/25/18 13:16 Temperature 99.0 F 11/25/18 13:16 Heart Rate 102 H 11/25/18 13:16 Respiratory Rate 16 11/25/18 13:16 Blood Pressure 130/74 11/25/18 13:16 O2 Saturation 100 11/25/18 13:16 - Exam General: No apparent distress HEENT: NCAT CV: Regular rate and rhythm Respiratory: CTA B, normal respiratory effort Abdomen:Soft in the periumbilical area. Fundus about 3 cm above the umbilicus. Lower uterine segment abdomen soft nontender. Unable to replicate tenderness on exam. Extremities: Warm and well perfused no lower extremity edema Neuro: Alert and oriented, normal gait and coordination Psych: Bright and reactive affect FFN: Negative GCCT: Negative for gonorrhea, chlamydia, trichomonas Affirm vaginitis panel: Positive for yeast, negative for bacterial vaginosis and trichomonas UA: Within normal limits Formal ultrasound performed by at bedside. Transvaginal cervical length 4.2 cm NST not indicated given previable gestational age. Pre- tracing showed heart rate in the 150s. Appropriate for gestational age. [place]: Quiet - Procedures Service Date of procedure: 11/25/18 Findings: Patient is a 32-year-old G5, P3 at 23 weeks and 3 days estimated gestational age with abdominal cramping. Patient has a history of multiple umbilical hernia repairs, most recent one was reinforced with mesh. Fundus of the uterus is immediately above the umbilicus. Examination and testing does not support labor; FFM was negative and TV CL was greater than 4 cm Vaginitis panel returned positive for yeast. Patient was provided with a prescription for fluconazole. Reviewed with the multiple abdominal surgeries, she may have some adhesions that are being put under tension with a growing uterus. Pain was not reproducible on exam. Patient reassured with regard to absence of evidence labor Discharge to home A total of 30 minutes was spent with patient in addition to bedside ultrasound. More than 50% of this was spent in [id number] crisis counselor.
== END 2018-11-25 17:23 | disposition home or self-care (01) ==
LOC: WFO 12:49 → FBP 12:51 → WFO 17:23
PROVIDERS: ATTEND Obstetrics & Gynecology
DX: O98.812 Other maternal infectious and parasitic diseases complicating pregnancy, second trimester (principal); B37.3 Candidiasis of vulva and vagina; R10.84 Generalized abdominal pain; Z3A.23 23 weeks gestation of pregnancy; Z87.440 Personal history of urinary (tract) infections; Z87.19 Personal history of other diseases of the digestive system
CPT/HCPCS: 76817; 81001; 82731; 87086; 87491; 87591; 87661; 87801; 99214

== ENCOUNTER 2018-12-09 22:46 | Emergency (ER) | payer OTHER, MEDICAID ==
--- NOTE | 2018-12-09 23:05 | ED Physician Documentation ---
History of Present Illness - Stated complaint Stated Complaint: PX INCISION SITE/25WKS PREG - Chief complaint Chief Complaint: Abd Pain - Additonal information Additional information: This is a 33-year-old female with a history of 2 umbilical hernia repairs, currently 25 weeks , who presents with abdominal pain. Patient states that she had a hernia of her umbilicus repaired last year, and during this starting around 14 weeks she has had some pain around her umbilicus and on her bilateral mid abdomen, this feels like a stretching, and has gotten progressively worse as her abdomen has grown as her has progressed. She was seen by her OB who recommended Tylenol. The pain has continued to worsen over the last several weeks, causing her to present tonight. She denies vaginal bleeding, vomiting. She has had some nausea. No dysuria. 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 HEENT: None Psych: Depression, Anxiety, Panic attacks, Claustrophobia Musculoskeletal: None Derm: Psoriasis, Other - Past Surgical History Past Surgical History: Yes - Present Medications Home Medications: Ambulatory Orders Medication Instructions Recorded Confirmed diphenhydrAMINE [Benadryl] 25 mg PO DAILY 08/14/18 12/10/18 Nitrofurantoin Monohyd/M-Cryst 100 mg PO BID #10 capsule 10/18/18 12/10/18 [Macrobid 100 mg Capsule] Acetaminophen [Tylenol Extra 1,000 mg PO BID 12/10/18 12/10/18 Strength] Citalopram Hydrobromide [Celexa] 20 mg PO DAILY 12/10/18 12/10/18 Esomeprazole Magnesium [Nexium] 20 mg PO DAILY 12/10/18 12/10/18 - Allergies Allergies/Adverse Reactions: Allergies Allergy/AdvReac Type Severity Reaction Status Date / Time Latex, Natural Rubber Allergy Intermediate Rash Verified 12/09/18 22:52 Penicillins Allergy Intermediate Emesis Verified 12/09/18 22:52 Tetanus Vaccines and Toxoid Allergy Intermediate Hives Verified 12/09/18 22:52 [Tetanus Vaccines & Toxoid] tioconazole [From Monistat 1] Allergy Intermediate Itching Verified 12/09/18 22:52 clindamycin Allergy Itching Verified 12/09/18 22:52 adhesive AdvReac Rash Verified 12/09/18 22:52 - Social History Does the pt smoke?: Yes Smoking Status: Current every day smoker Does the pt drink ETOH?: No Does the pt have substance abuse?: Yes - Immunizations Immunizations are current?: Yes - POLST Patient has POLST: No PD ED PE NORMAL - Vitals Vital signs reviewed: Yes - General General: Alert and oriented X 3, No acute distress - HEENT HEENT: PERRL - Neck Neck: Supple, no meningeal sign - Cardiac Cardiac: RRR, No murmur - Respiratory Respiratory: Clear bilaterally - Abdomen Abdomen: Other (Soft, gravid. There is some mild tenderness to palpation lateral to the umbilicus on the right and the left. The umbilicus is a small well-healed incisional scar, there is no palpable hernia, no specific tenderness over the site. No redness or skin changes. No specific right upper quadrant or right lower quadrant tenderness - tenderness is bilaterally in the mid-abdomen. No guarding.) - Derm Derm: Warm and dry - Extremities Extremities: No deformity - Neuro Neuro: Alert and oriented X 3 - Psych Psych: Normal mood, Normal affect Results - Vitals Vitals: Vital Signs - 24 hr 12/09/18 12/09/18 12/10/18 22:48 22:58 00:48 Temperature 36.7 C 36.7 C 37.2 C Heart Rate 99 99 87 Respiratory 16 16 16 Rate Blood Pressure 134/87 H 134/87 H 127/99 H O2 Saturation 100 100 98 Oxygen O2 Source Room air - Labs Labs: Laboratory Tests 12/09/18 12/09/18 12/09/18 22:58 23:20 23:20 WBC 8.6 RBC 3.09 L Hgb 9.4 L Hct 29.0 L MCV 93.9 MCH 30.4 MCHC 32.4 RDW 12.4 Plt Count 156 MPV 9.9 Neut # (Auto) 5.9 Lymph # (Auto) 1.8 [place] # (Auto) 0.7 Eos # (Auto) 0.1 Baso # (Auto) 0.0 Absolute Nucleated RBC 0.00 Nucleated RBC % 0.0 Sodium 138 Potassium 3.9 Chloride 104 Carbon Dioxide 24 Anion Gap 10.0 BUN 11 Creatinine 0.5 Estimated GFR (MDRD) 142 Glucose 92 Calcium 9.2 Total Bilirubin 0.3 AST 17 ALT 10 Alkaline Phosphatase 52 Total Protein 6.6 L Albumin 2.9 L Globulin 3.7 Albumin/Globulin Ratio 0.8 L Lipase 31 Urine Color YELLOW Urine Clarity HAZY Urine pH 6.5 Ur Specific [place] 1.015 Urine Protein NEGATIVE Urine Glucose (UA) NEGATIVE Urine Ketones NEGATIVE Urine Occult Blood NEGATIVE Urine Nitrite NEGATIVE Urine Bilirubin NEGATIVE Urine Urobilinogen 0.2 (NORMAL) Ur Leukocyte Esterase SMALL H Urine RBC 0-5 Urine WBC 6-10 H Ur Squamous Epith Cells MANY Squamous H Urine Bacteria Moderate H Ur Microscopic Review INDICATED Urine Culture Comments NOT INDICATED - Rads (name of study) Abdominal ultrasoun Radiology: Other (No evidence of biliary pathology. Mild fatty liver, mild right hydronephrosis likely related to .) PD MEDICAL DECISION MAKING - ED course Complexity details: considered differential (Round ligament pain, umbilical hernia, cholelithiasis, appendicitis, pancreatitis, pyelonephritis) ED course: On examination vital signs are unremarkable, patient is well-appearing. She has only mild tenderness to palpation on her exam. Labs are notable for an anemia, with hemoglobin near her most recent value in our system. No leukocytosis. Abdominal ultrasound shows mild right hydronephrosis which is likely from , no evidence of biliary pathology. On exam her umbilical hernia site appears normal, there is no palpable hernia, area is not tender, there is no redness. Acute abdominal pathology is less likely given that this pain is been ongoing for 10 weeks. Urine shows white blood cells present, but it is a dirty catch, overall equivocal for infection. Given that she has no dysuria or other symptoms of UTI, and she is currently taking Macrobid for UTI suppression, after discussion with patient she would prefer to hold off on starting antibiotics right now and follow-up with her OB on this. I think it is unlikely that the UTI is causing her given the location of the pain and the fact that it has been present for 10 weeks. I discussed her that I am not sure what the cause of her pain is, and recommend that she follow-up closely with her primary care provider and her OB. If she develops worsening symptoms such as vomiting, worsening abdominal pain, fever, or any other concerning symptoms she should return to the emergency department immediately. Patient agreed with this plan and was discharged home in the care of her partner. Departure - Departure Disposition: 01 Home, Self Care Clinical Impression: Abdominal pain Qualifiers: Abdominal location: unspecified location Qualified Code(s): R10.9 - Unspecified abdominal pain Condition: Good Instructions: ED Abdominal Pain Unkn Cause Follow-Up: Your,OB [Other] (As soon as possible for re-check of your abdominal pain) ROSA M PADGETT MD [Primary Care Provider] - Comments: You were seen today for abdominal pain. Your labs and ultrasound do not show an obvious cause of your pain. Your urine did show some white blood cells, but it was contaminated. We will call you with the results of the urine culture if this turns positive. You do have an anemia, please follow-up with your OB and primary care provider on this. If you develop worsening abdominal pain, persist ent vomiting, fever, or other concerning symptoms please return to the emergency department. Otherwise please follow-up as soon as possible with your OB provider. You may take Tylenol (either 650 mg every 6 hours, or 1000mg up to three times daily; maximum dose 3,000mg total per day) as needed for pain.
[2018-12-09 23:13] LABS: BILIRUBIN,URINE NEGATIVE (NEGATIVE); CLARITY,URINE HAZY (CLEAR); GLUCOSE, URINE (UA) NEGATIVE (NEGATIVE); KETONES,URINE (UA) NEGATIVE (NEGATIVE); LEUKOCYTE ESTERASE, URINE SMALL (NEGATIVE); NITRITE,URINE NEGATIVE (NEGATIVE); OCCULT BLOOD,URINE NEGATIVE (NEGATIVE); PH,URINE 6.5 PH (5.0-7.5); PROTEIN,URINE NEGATIVE (NEGATIVE); UROBILINOGEN,URINE 0.2 (NORMAL) E.U./dL (NORMAL)
[2018-12-09 23:16] LABS: BACTERIA,URINE Moderate /HPF (None Seen); RBC,URINE 0-5 /HPF (0-5); SQUAMOUS EPITHELIAL CELL,UR MANY Squamous (<= Few)
[2018-12-09 23:33] LABS: BASOPHILS % (AUTO) 0.2 %; EOSINOPHILS # (AUTO) 0.1 10^3/uL (0.0-0.7); EOSINOPHILS % (AUTO) 0.8 %; HGB - HEMOGLOBIN 9.4 g/dL (12.0-16.0); LYMPHOCYTES # (AUTO) 1.8 10^3/uL (1.5-3.5); LYMPHOCYTES % (AUTO) 21.2 %; MEAN CORPUSCULAR HEMOGLOBIN 30.4 pg (27.0-31.0); MEAN CORPUSCULAR HGB CONC 32.4 g/dL (32.0-36.0); MEAN CORPUSCULAR VOLUME 93.9 fL (81.0-99.0); MEAN PLATELET VOLUME 9.9 fL (7.9-10.8); MONOCYTES # (AUTO) 0.7 10^3/uL (0.0-1.0); MONOCYTES % (AUTO) 7.8 %; NEUTROPHILS # (AUTO) 5.9 10^3/uL (1.5-6.6); NEUTROPHILS % (AUTO) 69.4 %; PLT - PLATELET COUNT 156 10^3/uL (130-450); RED BLOOD COUNT 3.09 10^6/uL (4.20-5.40); RED CELL DISTRIBUTION WIDTH 12.4 % (12.0-15.0); WHITE BLOOD COUNT 8.6 x10^3/uL (4.8-10.8)
[2018-12-09 23:46] LABS: ALBUMIN 2.9 g/dL (3.2-5.5); ALBUMIN/GLOBULIN RATIO 0.8 (1.0-2.2); BILIRUBIN,TOTAL 0.3 mg/dL (0.2-1.0); CALCIUM 9.2 mg/dL (8.5-10.3); CREATININE 0.5 mg/dL (0.4-1.0); TOTAL PROTEIN 6.6 g/dL (6.7-8.2)
[2018-12-09] MEDS ORDERED: oxyCODONE 5 MG TABLET PO STA (23:46)
[2018-12-10 00:50] VITALS: BP 127/99
--- NOTE | 2018-12-10 01:04 | Ultrasound Report ---
Reason: 25 wks , abdominal pain Procedure Date: 12/10/2018 Accession Number: [id number] / [id number] Procedure: US - Abdomen Limited CPT Code: FULL RESULT: EXAM: ABDOMEN ULTRASOUND LIMITED, RUQ EXAM DATE: 12/10/2018 12:55 AM CLINICAL HISTORY: 25 weeks , abdominal pain. COMPARISON: None. TECHNIQUE: Real-time scanning was performed with static images obtained. FINDINGS: Liver: Mildly increased echotexture. No focal lesions. 16.5 cm. Main portal vein flow: Hepatopetal. Gallbladder: Normal. No stones, wall thickening, or sonographic Jade's sign. Biliary System: CBD measures 4 mm. No intrahepatic or extrahepatic ductal dilatation. Other: Mild hydronephrosis. No stones or mass seen. The visualized pancreas is unremarkable. IMPRESSION: 1. No cholelithiasis, cholecystitis or bile duct obstruction. 2. Mild fatty liver infiltration. 3. Mild right hydronephrosis likely related. RADIA
== END 2018-12-10 01:35 | disposition home or self-care (01) ==
LOC: ED 22:46
DX: O99.89 Other specified diseases and conditions complicating pregnancy, childbirth and the puerperium (principal); R10.33 Periumbilical pain; O99.012 Anemia complicating pregnancy, second trimester; O99.332 Smoking (tobacco) complicating pregnancy, second trimester; Z3A.25 25 weeks gestation of pregnancy
CPT/HCPCS: 36415; 76705; 80053; 81001; 83690; 85025; 99284; A9270; 81003; 87086

== ENCOUNTER 2018-12-11 21:20 | Outpatient (CLI) | payer OTHER, MEDICAID ==
[2018-12-11 21:38] VITALS: BP 125/75
--- NOTE | 2018-12-11 21:55 | PROVIDER PROGRESS NOTE ---
- HPI Chief Complaint: Other (Left-sided pelvic pain) Current : Current EDU 03/21/19 Gestation 25 Weeks and 5 Days 5 Para 3 Vital Signs Temperature 36.8 C 12/11/18 21:28 Heart Rate 93 12/11/18 21:28 Respiratory Rate 16 12/11/18 21:28 Blood Pressure 125/75 12/11/18 21:28 O2 Saturation 99 12/11/18 21:28 Temperature 36.8 C 12/11/18 21:28 Heart Rate 93 12/11/18 21:28 Respiratory Rate 16 12/11/18 21:28 Blood Pressure 125/75 12/11/18 21:28 O2 Saturation 99 12/11/18 21:28 The patient comes to labor and delivery With a complaint of left-sided pelvic pain that started abruptly tonight while she was at dinner and she fell to the floor off of her chair. She denies any fevers, chills, nausea, vomiting, constipation or diarrhea.The pain is worse with movement. She points to the left pelvic area radiating down towards her groin but denies that it actually goes into the groin. - Exam Heart: Heart has a regular rate and rhythm without murmur Lungs: Lungs are clear to auscultation bilaterally without wheezes Abdomen: The abdomen is soft, pliable and nontender. No rigidity, rebound or guarding is appreciated.No overt tenderness is appreciated when I pushed into the areas that she complains about on the left pelvic side.The uterus is soft and gravid. - Procedures Findings: Impression: Intrauterine at 25 weeks and 5 days gestation Round ligament syndrome - Plan Plan: The patient is being discharged home. She will follow-up with the regular appointed and scheduled OB visit.She will use warm moist heat on the area, Tylenol and find positions of comfort.She is to return to OB if her symptoms worsen or signs of labor ensue.
== END 2018-12-11 22:06 | disposition home or self-care (01) ==
LOC: WFO 21:20 → FBP 21:22 → WFO 22:06
PROVIDERS: ATTEND Obstetrics & Gynecology
DX: O99.89 Other specified diseases and conditions complicating pregnancy, childbirth and the puerperium (principal); M24.20 Disorder of ligament, unspecified site; Z3A.25 25 weeks gestation of pregnancy
CPT/HCPCS: 99212

== ENCOUNTER 2018-12-24 13:39 | Emergency (ER) | payer OTHER, MEDICAID ==
[2018-12-24] MEDS ORDERED: METOCLOPRAMIDE 10 MG/2 ML VIAL IVP STA (15:14)
[2018-12-24] MEDS ORDERED: SODIUM CHLORIDE 0.9% 1,000 ML IV ONE (15:14)
--- NOTE | 2018-12-24 15:15 | ED Physician Documentation ---
History of Present Illness - Stated complaint Stated Complaint: REACTION TO MED - Chief complaint Chief Complaint: Allergic Rx - History obtained from History obtained from: Patient, Family - History of Present Illness Timing: Today Pain level max: 2 Pain level now: 1 - Additonal information Additional information: 33-year-old female is approximately 27 weeks . She took gabapentin for the first time last night and is having nausea and vomiting today. [place] lightheaded when she stood up. She contacted her OB who referred her here for evaluation. She took Reglan which helped. No fevers. No diarrhea. No vaginal bleeding or discharge. No fluid leakage. 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 : None HEENT: None Psych: Depression, Anxiety, Panic attacks, Claustrophobia Musculoskeletal: None Derm: Psoriasis, Other - Past Surgical History Past Surgical History: Yes General: Other - Present Medications Home Medications: Ambulatory Orders Medication Instructions Recorded Confirmed diphenhydrAMINE [Benadryl] 25 mg PO DAILY 08/14/18 12/10/18 Nitrofurantoin Monohyd/M-Cryst 100 mg PO BID #10 capsule 10/18/18 12/10/18 [Macrobid 100 mg Capsule] Acetaminophen [Tylenol Extra 1,000 mg PO BID 12/10/18 12/10/18 Strength] Citalopram Hydrobromide [Celexa] 20 mg PO DAILY 12/10/18 12/10/18 Esomeprazole Magnesium [Nexium] 20 mg PO DAILY 12/10/18 12/10/18 Oxycodone HCl 5 - 10 mg PO Q6H PRN #14 tablet 12/24/18 - Allergies Allergies/Adverse Reactions: Allergies Allergy/AdvReac Type Severity Reaction Status Date / Time Latex, Natural Rubber Allergy Intermediate Rash Verified 12/09/18 22:52 Penicillins Allergy Intermediate Emesis Verified 12/09/18 22:52 Tetanus Vaccines and Toxoid Allergy Intermediate Hives Verified 12/09/18 22:52 [Tetanus Vaccines & Toxoid] tioconazole [From Monistat 1] Allergy Intermediate Itching Verified 12/09/18 22:52 clindamycin Allergy Itching Verified 12/09/18 22:52 adhesive AdvReac Rash Verified 12/09/18 22:52 monostate Allergy Unknown Uncoded 12/24/18 13:48 - Social History Does the pt smoke?: No Smoking Status: Never smoker Does the pt drink ETOH?: No Does the pt have substance abuse?: Yes - Immunizations Immunizations are current?: Yes - POLST Patient has POLST: No PD ED PE NORMAL - Vitals Vital signs reviewed: Yes - General General: Alert and oriented X 3, No acute distress, Well developed/nourished - HEENT HEENT: Moist mucous membranes - Neck Neck: Supple, no meningeal sign - Cardiac Cardiac: RRR, Strong equal pulses - Respiratory Respiratory: No respiratory distress, Clear bilaterally - Abdomen Abdomen: Soft, Non tender, Non distended - Back Back: No CVA TTP - Derm Derm: Warm and dry - Extremities Extremities: No edema - Neuro Neuro: Alert and oriented X 3 - Psych Psych: Normal mood, Normal affect Results - Vitals Vitals: Oxygen O2 Source Room air - Labs Labs: Laboratory Tests 12/24/18 12/24/18 12/24/18 15:35 15:35 16:23 WBC 9.7 RBC 3.07 L Hgb 9.6 L Hct 29.2 L MCV 95.1 MCH 31.3 H MCHC 32.9 RDW 13.4 Plt Count 144 MPV 10.0 Neut # (Auto) 7.7 H Lymph # (Auto) 1.3 L [place] # (Auto) 0.6 Eos # (Auto) 0.0 Baso # (Auto) 0.0 Absolute Nucleated RBC 0.00 Nucleated RBC % 0.0 Sodium 138 Potassium 3.6 Chloride 107 Carbon Dioxide 23 Anion Gap 8.0 BUN < 5 L Creatinine 0.5 Estimated GFR (MDRD) 142 Glucose 87 Calcium 8.8 Total Bilirubin 0.8 AST 21 ALT 14 Alkaline Phosphatase 58 Total Protein 6.1 L Albumin 2.9 L Globulin 3.2 Albumin/Globulin Ratio 0.9 L Lipase 25 Urine Color YELLOW Urine Clarity CLEAR Urine pH 8.0 H Ur Specific [place] 1.015 Urine Protein NEGATIVE Urine Glucose (UA) NEGATIVE Urine Ketones NEGATIVE Urine Occult Blood NEGATIVE Urine Nitrite NEGATIVE Urine Bilirubin NEGATIVE Urine Urobilinogen 0.2 (NORMAL) Ur Leukocyte Esterase NEGATIVE Ur Microscopic Review NOT INDICATED Urine Culture Comments NOT INDICATED PD MEDICAL DECISION MAKING - ED course Complexity details: reviewed results, re-evaluated patient, considered differential, d/w patient, d/w urban design consultant ED course: 33-year-old female presents to the emergency department with vomiting today. She is . Has been on gabapentin, will hold this at this time. Feels better after IV fluids and IV Reglan. Tolerating p.o. without difficulty. Prior to discharge her stated that she is in severe pain and the only thing that has helped so far has been Percocet. We discussed the problems with having narcotics during including drug addiction and withdrawal of the baby. I discussed the case with Dr. Winkler, OB on-call who recommends a small amount of oxycodone. They will follow-up in the clinic next week. They will likely need transfer to maternal- medicine. Patient and family counseled regarding signs and symptoms for which I believe and urgent re-evaluation would be necessary. Patient with good understanding of and agreement to plan and is comfortable going home at this time This document was made in part using voice recognition software. While efforts are made to proofread this document, sound alike and grammatical errors may occur. Departure - Departure Disposition: 01 Home, Self Care Clinical Impression: Dehydration Vomiting Qualifiers: Vomiting type: unspecified Vomiting Intractability: non-intractable Nausea presence: with nausea Qualified Code(s): R11.2 - Nausea with vomiting, unspecified Condition: Good Instructions: ED Nausea Vomiting Follow-Up: ROSA M PADGETT MD [Primary Care Provider] - Within 1 week Prescriptions: Oxycodone HCl 5 - 10 mg PO Q6H PRN #14 tablet PRN Reason: Abdominal Pain Comments: It is unclear if this is a reaction to the gabapentin or not. Return if you worsen. Follow-up with your doctor for further care. Drink plenty of fluids at home. I spoke with Dr. Winkler today, she okayed a small amount of oxycodone for you. She states that you will likely need to be referred to maternal- medicine. You should also follow-up with the general surgeon, the name of which was given to you by Dr. Winkler. Do not drink alcohol or drive while on narcotic pain medicine. Note that many narcotic pain relievers also contain tylenol/acetaminophen. Please ensure that your total dose of acetaminophen from all sources does not exceed 3 grams (3000mg) per day. You may constipated on this medication, take a stool softener such as "Colace" twice a day while you are on it. Also recommend a kydb-ebd-mlikckd laxative such as senna or MiraLAX any day that you do not have a bowel movement. If you received narcotic pain medication in the emergency department, do not drive or operate machinery for the next 24 hours. Discharge Date/Time: 12/24/18 17:55
[2018-12-24 15:40] LABS: BASOPHILS % (AUTO) 0.2 %; EOSINOPHILS % (AUTO) 0.3 %; HGB - HEMOGLOBIN 9.6 g/dL (12.0-16.0); LYMPHOCYTES # (AUTO) 1.3 10^3/uL (1.5-3.5); LYMPHOCYTES % (AUTO) 13.7 %; MEAN CORPUSCULAR HEMOGLOBIN 31.3 pg (27.0-31.0); MEAN CORPUSCULAR HGB CONC 32.9 g/dL (32.0-36.0); MEAN CORPUSCULAR VOLUME 95.1 fL (81.0-99.0); MONOCYTES # (AUTO) 0.6 10^3/uL (0.0-1.0); MONOCYTES % (AUTO) 5.8 %; NEUTROPHILS # (AUTO) 7.7 10^3/uL (1.5-6.6); NEUTROPHILS % (AUTO) 79.1 %; PLT - PLATELET COUNT 144 10^3/uL (130-450); RED BLOOD COUNT 3.07 10^6/uL (4.20-5.40); RED CELL DISTRIBUTION WIDTH 13.4 % (12.0-15.0); WHITE BLOOD COUNT 9.7 x10^3/uL (4.8-10.8)
[2018-12-24 16:11] LABS: ALBUMIN 2.9 g/dL (3.2-5.5); ALBUMIN/GLOBULIN RATIO 0.9 (1.0-2.2); ALKALINE PHOSPHATASE 58 IU/L (42-121); ALT ALANINE AMINOTRANSFERASE 14 IU/L (10-60); AST ASPARTATE AMINOTRANSFERASE 21 IU/L (10-42); BILIRUBIN,TOTAL 0.8 mg/dL (0.2-1.0); BUN - BLOOD UREA NITROGEN < 5 mg/dL (6-20); CALCIUM 8.8 mg/dL (8.5-10.3); CARBON DIOXIDE - CO2 23 mmol/L (21-32); CHLORIDE 107 mmol/L (101-111); CREATININE 0.5 mg/dL (0.4-1.0); GFR - MDRD 142 (>89); GLUCOSE 87 mg/dL (70-100); LIPASE 25 U/L (22-51); SODIUM 138 mmol/L (135-145); TOTAL PROTEIN 6.1 g/dL (6.7-8.2)
[2018-12-24 17:01] LABS: BILIRUBIN,URINE NEGATIVE (NEGATIVE); GLUCOSE, URINE (UA) NEGATIVE (NEGATIVE); KETONES,URINE (UA) NEGATIVE (NEGATIVE); LEUKOCYTE ESTERASE, URINE NEGATIVE (NEGATIVE); NITRITE,URINE NEGATIVE (NEGATIVE); OCCULT BLOOD,URINE NEGATIVE (NEGATIVE); PROTEIN,URINE NEGATIVE (NEGATIVE); UROBILINOGEN,URINE 0.2 (NORMAL) E.U./dL (NORMAL)
[2018-12-24 17:06] LABS: CLARITY,URINE CLEAR (CLEAR)
[2018-12-24 17:33] VITALS: BP 118/65
[2018-12-24] MEDS ORDERED: oxyCODONE 5 MG TABLET PO STA (17:44)
== END 2018-12-24 17:55 | disposition home or self-care (01) ==
LOC: ED 13:39
DX: O21.9 Vomiting of pregnancy, unspecified (principal); O99.89 Other specified diseases and conditions complicating pregnancy, childbirth and the puerperium; E86.0 Dehydration; G89.29 Other chronic pain; R10.9 Unspecified abdominal pain; Z3A.27 27 weeks gestation of pregnancy
CPT/HCPCS: 36415; 80053; 81003; 83690; 85025; 96360; 99283; A9270; J2765; 81001; 87086

== ENCOUNTER 2019-01-25 09:31 | Outpatient (CLI) | payer OTHER, MEDICAID ==
[2019-01-25 11:06] LABS: HGB - HEMOGLOBIN 9.4 g/dL (12.0-16.0); MEAN CORPUSCULAR HEMOGLOBIN 29.1 pg (27.0-31.0); MEAN CORPUSCULAR VOLUME 93.8 fL (81.0-99.0); RED BLOOD COUNT 3.23 10^6/uL (4.20-5.40); RED CELL DISTRIBUTION WIDTH 14.3 % (12.0-15.0); WHITE BLOOD COUNT 8.4 x10^3/uL (4.8-10.8)
== END 2019-01-25 09:32 | disposition home or self-care (01) ==
LOC: LAB 09:31
PROVIDERS: ATTEND Obstetrics & Gynecology
DX: Z34.90 Encounter for supervision of normal pregnancy, unspecified, unspecified trimester (principal)
CPT/HCPCS: 36415; 82950; 85027

== ENCOUNTER 2019-02-14 08:00 | Outpatient (CLI) | payer OTHER, MEDICAID ==
[2019-02-14 19:32] LABS: TRICHOMONAS VAGINALIS DNA NEGATIVE (NEGATIVE)
== END 2019-02-14 23:59 | disposition home or self-care (01) ==
LOC: LAB.R 08:00
PROVIDERS: ATTEND Obstetrics & Gynecology
DX: Z36.89 Encounter for other specified antenatal screening (principal)
CPT/HCPCS: 87491; 87591; 87661; 87797

== ENCOUNTER 2019-02-20 18:59 | Outpatient (CLI) | payer OTHER, MEDICAID ==
[~2019-02-20 18:59] MED LIST: IRON DEXTRAN 975 MG in SODIUM CHLORIDE 0.9% 250 ML IV ONE
[2019-02-20] MEDS ORDERED: ALBUTEROL NEB 2.5 MG/3 ML INH ONE (19:36)
--- NOTE | 2019-02-20 20:13 | HISTORY & PHYSICAL EXAMINATION ---
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, GERD, depression/anxiety, recurrent UTI, asthma) Smoking Status: Never smoker - Mother's Labs Mother's Blood Type: positive: A Mother's RH: positive: Positive GBS: positive: Group B Step Negative (02/14/19), Other (Unknown) Rubella Status: positive: Immune - Other Maternal History Other Maternal History: PN labs: Care at multiple locations: A+ HIV/HepB and C/VDRL neg GC/chlam neg Hgb on 01/25 9.4>>pt reports was told iron deficiency Glucola 114 GBS neg on 02/14 Meds/Allgy - Home Medications Home Medications: Ambulatory Orders Medication Instructions Recorded Confirmed Nitrofurantoin Monohyd/M-Cryst 100 mg PO BID #10 capsule 10/18/18 02/20/19 [Macrobid 100 mg Capsule] Acetaminophen [Tylenol Extra 1,000 mg PO BID 12/10/18 02/20/19 Strength] Citalopram Hydrobromide [Celexa] 20 mg PO DAILY 12/10/18 02/20/19 Esomeprazole Magnesium [Nexium] 20 mg PO DAILY 12/10/18 02/20/19 Oxycodone HCl 5 - 10 mg PO Q6H PRN #14 tablet 12/24/18 02/20/19 Albuterol Sulf [Ventolin Hfa 1 puffs INH DAILY PRN 02/20/19 02/20/19 Inhaler] Fexofenadine HCl [Linda Allergy] 180 mg PO DAILY 02/20/19 02/20/19 Gabapentin 100 mg PO BID 02/20/19 02/20/19 Meloxicam 7.5 mg PO DAILY 02/20/19 02/20/19 Metoclopramide [Reglan] 5 mg PO Q6HR PRN 02/20/19 02/20/19 raNITIdine HCl [Zantac] 150 mg PO DAILY 02/20/19 02/20/19 - Allergies Allergies/Adverse Reactions: Allergies Allergy/AdvReac Type Severity Reaction Status Date / Time clindamycin Allergy Severe Hives Verified 02/20/19 20:36 Penicillins Allergy Severe Hives Verified 02/20/19 20:36 Latex, Natural Rubber Allergy Intermediate Rash Verified 01/04/19 23:52 Tetanus Vaccines and Toxoid Allergy Intermediate Hives Verified 01/04/19 23:52 [Tetanus Vaccines & Toxoid] tioconazole [From Monistat 1] Allergy Intermediate Itching Verified 01/04/19 23:52 adhesive AdvReac Rash Verified 01/04/19 23:52 monostate Allergy Intermediate Hives Uncoded 02/20/19 20:36 Review of Systems - Constitutional Constitutional: reports: Fatigue - Cardiovascular Cariovascular: denies: Chest pain - Respiratory Respiratory: reports: SOB with exertion. denies: Cough, Sputum production, Wheezing - Gastrointestinal Gastrointestinal: reports: Abdominal pain (Her usual related to hernia mesh disruption), Reflux/heartburn - Genitourinary Genitourinary: denies: Dysuria - Neurological Neurological: denies: Headache - Psychiatric Psychiatric: reports: Depression, Anxiety - Hematologic/Lymphatic Hematologic/Lymphatic: reports: Anemia - All Other Systems All Other Systems: reports: Reviewed and negative, Other (Irregular contractions last few days, increased over past few hours. No fluid leak or bleeding. Normal activity) Physical - Abdominal Exam Vital Signs: Temp Pulse Resp BP Pulse Ox 98.7 F 110 H 16 130/84 H 100 02/20/19 19:11 02/20/19 19:11 02/20/19 19:11 02/20/19 19:11 02/20/19 19:11 Contraction Frequency (min/apart): Mild, irregular lasting <45 seconds Contraction Intensity: positive: Mild, Irritability Uterine Resting Tone: positive: Soft - Monitoring Strip Review: positive: Category I - Presentation Presentation: positive: Vertex - Speculum Exam Speculum Exam Performed: positive: No - Other Notes Labor Progress Note/Additional Text: Other exam: HEENT normal RESP; good breath sounds throughout, no wheezes, no tachypnea, few fine crackles at left base CV; RRR borderline tachy, 3/6 systolic murmur along LSB No CVA tenderness Abdomen gravid, non-tender, S+D VE deferred EXT without edema Plan for Labor - Plan For Labor Plan for Labor: 33yo at 35+5 by LMP consistent with second trimester scan A+ GBS neg who presents with c/o increasing contractions and shortness of breath. No sick contacts, findings as noted. Plan Albuterol nebs, chest X-ray Oral hydration UA, CBC w/diff Fetus Category 1 Obs.
[2019-02-20 20:16] LABS: BASOPHILS % (AUTO) 0.2 %; EOSINOPHILS # (AUTO) 0.1 10^3/uL (0.0-0.7); EOSINOPHILS % (AUTO) 0.6 %; HGB - HEMOGLOBIN 9.9 g/dL (12.0-16.0); MEAN CORPUSCULAR HEMOGLOBIN 29.4 pg (27.0-31.0); MEAN CORPUSCULAR HGB CONC 31.6 g/dL (32.0-36.0); MEAN CORPUSCULAR VOLUME 92.9 fL (81.0-99.0); MEAN PLATELET VOLUME 11.2 fL (7.9-10.8); MONOCYTES # (AUTO) 0.8 10^3/uL (0.0-1.0); MONOCYTES % (AUTO) 8.3 %; NEUTROPHILS # (AUTO) 6.5 10^3/uL (1.5-6.6); NEUTROPHILS % (AUTO) 69.3 %; PLT - PLATELET COUNT 132 10^3/uL (130-450); RED BLOOD COUNT 3.37 10^6/uL (4.20-5.40); RED CELL DISTRIBUTION WIDTH 14.8 % (12.0-15.0); WHITE BLOOD COUNT 9.4 x10^3/uL (4.8-10.8)
[2019-02-20 20:19] LABS: BILIRUBIN,URINE NEGATIVE (NEGATIVE); GLUCOSE, URINE (UA) NEGATIVE (NEGATIVE); KETONES,URINE (UA) NEGATIVE (NEGATIVE); LEUKOCYTE ESTERASE, URINE NEGATIVE (NEGATIVE); NITRITE,URINE NEGATIVE (NEGATIVE); OCCULT BLOOD,URINE NEGATIVE (NEGATIVE); PH,URINE 6.5 PH (5.0-7.5); PROTEIN,URINE NEGATIVE (NEGATIVE); UROBILINOGEN,URINE 0.2 (NORMAL) E.U./dL (NORMAL)
[2019-02-20 20:26] VITALS: BP 125/78
[2019-02-20 20:27] LABS: CLARITY,URINE CLEAR (CLEAR)
[2019-02-20 20:41] LABS: BACTERIA,URINE Few /HPF (None Seen); RBC,URINE 0-5 /HPF (0-5); SQUAMOUS EPITHELIAL CELL,UR MANY Squamous (<= Few)
[2019-02-20] MEDS ORDERED: SODIUM CHLORIDE FLUSH 0.9% 10 ML SYRINGE IVP PRN (21:03)
--- NOTE | 2019-02-20 21:15 | XRAY Report ---
Reason: shortness of breath Procedure Date: 02/20/2019 Accession Number: [id number] / [id number] Procedure: XR - Chest 1 View X-Ray CPT Code: 35417 Final Report FULL RESULT: EXAM: CHEST RADIOGRAPHY EXAM DATE: 02/20/2019 08:27 PM. CLINICAL HISTORY: Shortness of breath. COMPARISON: None. TECHNIQUE: 1 view. FINDINGS: Lungs/Pleura: No significant consolidation, effusion, or definite pneumothorax. Mediastinum: Cardiac silhouette is within normal limits when accounting for lung volumes and technique. Other: Small hiatal hernia. IMPRESSION: No acute cardiopulmonary abnormality demonstrated. RADIA
[2019-02-20] MEDS ORDERED: SODIUM CHLORIDE 0.9% 500 ML ONE (21:21)
--- NOTE | 2019-02-20 21:36 | PROVIDER PROGRESS NOTE ---
Subjective - Prog Note Date Prog Note Date: 02/20/19 Prog Note Time: 21:30 - Subjective Subjective: Very anxious Minimal subjective symptom improvement with nebulizer Continues to note irregular mild contractions VSS afeb VE/ L/C/P with floating presenting part Labs normal except known anemia, negative CXR Pt notes has been unable to tolerate oral iron; plan was for IV therapy, not yet done. A/P Suspect anxiety/panic attack. Plan IV iron; deficit calculated 1005mg for target hgb of 12.0 Feeling nauseous as baseline; will give phenergan for it's anti-anxiety effect. Discussed possible interaction with reglan w pharm/ pt took 5mg>12 hours ago. Minimal risk. Objective - Vital Signs/Intake & Output Vital Signs: Vital Signs x48h Temp Pulse Resp BP Pulse Ox 02/20/19 20:06 106 H 19 125/78 100 02/20/19 19:11 98.7 F 110 H 16 130/84 H 100 - Lab Results Fish Bones: 02/20/19 20:10 Other Labs: Lab Results x24hrs 02/20/19 02/20/19 Range/Units 20:10 19:45 WBC 9.4 (4.8-10.8) x10^3/uL RBC 3.37 L (4.20-5.40) 10^6/uL Hgb 9.9 L (12.0-16.0) g/dL Hct 31.3 L (37.0-47.0) % MCV 92.9 (81.0-99.0) fL MCH 29.4 (27.0-31.0) pg MCHC 31.6 L (32.0-36.0) g/dL RDW 14.8 (12.0-15.0) % Plt Count 132 (130-450) 10^3/uL MPV 11.2 H (7.9-10.8) fL Neut # (Auto) 6.5 (1.5-6.6) 10^3/uL Lymph # (Auto) 2.0 (1.5-3.5) 10^3/uL [place] # (Auto) 0.8 (0.0-1.0) 10^3/uL Eos # (Auto) 0.1 (0.0-0.7) 10^3/uL Baso # (Auto) 0.0 (0.0-0.1) 10^3/uL Absolute Nucleated RBC 0.00 x10^3/uL Nucleated RBC % 0.0 /100WBC Urine Color YELLOW Urine Clarity CLEAR (CLEAR) Urine pH 6.5 (5.0-7.5) PH Ur Specific [place] 1.010 (1.002-1.030) Urine Protein NEGATIVE (NEGATIVE) mg/dL Urine Glucose (UA) NEGATIVE (NEGATIVE) mg/dL Urine Ketones NEGATIVE (NEGATIVE) mg/dL Urine Occult Blood NEGATIVE (NEGATIVE) Urine Nitrite NEGATIVE (NEGATIVE) Urine Bilirubin NEGATIVE (NEGATIVE) Urine Urobilinogen 0.2 (NORMAL) (NORMAL) E.U./dL Ur Leukocyte Esterase NEGATIVE (NEGATIVE) Urine RBC 0-5 (0-5) /HPF Urine WBC 0-3 (0-5) /HPF Ur Squamous Epith Cells MANY Squamous H (<= Few) Urine Bacteria Few (None Seen) /HPF Urine Culture Comments NOT INDICATED
[2019-02-20] MEDS ORDERED: PROMETHAZINE INJ 25 MG in SODIUM CHLORIDE 0.9% 50 ML IV SCH (22:00)
--- NOTE | 2019-02-20 22:59 | PROVIDER PROGRESS NOTE ---
Subjective - Prog Note Date Prog Note Date: 02/20/19 Prog Note Time: 22:57 - Subjective Subjective: S/P phenergan Feeling much better. Nausea resolved. Tolerating regular diet. Much more relaxed. No longer feeling dyspneic. VSS Unable to mix iron dextran at night. Patient will return tommorow for iron infusion. DC home now. Objective - Vital Signs/Intake & Output Vital Signs: Vital Signs x48h Temp Pulse Pulse Resp BP Pulse Ox 02/20/19 22:06 86 18 02/20/19 20:06 106 H 19 125/78 100 02/20/19 19:11 98.7 F 110 H 16 130/84 H 100 - Lab Results Fish Bones: 02/20/19 20:10 Other Labs: Lab Results x24hrs 02/20/19 02/20/19 Range/Units 20:10 19:45 WBC 9.4 (4.8-10.8) x10^3/uL RBC 3.37 L (4.20-5.40) 10^6/uL Hgb 9.9 L (12.0-16.0) g/dL Hct 31.3 L (37.0-47.0) % MCV 92.9 (81.0-99.0) fL MCH 29.4 (27.0-31.0) pg MCHC 31.6 L (32.0-36.0) g/dL RDW 14.8 (12.0-15.0) % Plt Count 132 (130-450) 10^3/uL MPV 11.2 H (7.9-10.8) fL Neut # (Auto) 6.5 (1.5-6.6) 10^3/uL Lymph # (Auto) 2.0 (1.5-3.5) 10^3/uL [place] # (Auto) 0.8 (0.0-1.0) 10^3/uL Eos # (Auto) 0.1 (0.0-0.7) 10^3/uL Baso # (Auto) 0.0 (0.0-0.1) 10^3/uL Absolute Nucleated RBC 0.00 x10^3/uL Nucleated RBC % 0.0 /100WBC Urine Color YELLOW Urine Clarity CLEAR (CLEAR) Urine pH 6.5 (5.0-7.5) PH Ur Specific [place] 1.010 (1.002-1.030) Urine Protein NEGATIVE (NEGATIVE) mg/dL Urine Glucose (UA) NEGATIVE (NEGATIVE) mg/dL Urine Ketones NEGATIVE (NEGATIVE) mg/dL Urine Occult Blood NEGATIVE (NEGATIVE) Urine Nitrite NEGATIVE (NEGATIVE) Urine Bilirubin NEGATIVE (NEGATIVE) Urine Urobilinogen 0.2 (NORMAL) (NORMAL) E.U./dL Ur Leukocyte Esterase NEGATIVE (NEGATIVE) Urine RBC 0-5 (0-5) /HPF Urine WBC 0-3 (0-5) /HPF Ur Squamous Epith Cells MANY Squamous H (<= Few) Urine Bacteria Few (None Seen) /HPF Urine Culture Comments NOT INDICATED
[2019-02-20] MEDS ORDERED: IRON DEXTRAN 25 MG in SODIUM CHLORIDE 0.9% 50 ML IV ONE (23:00)
== END 2019-02-20 23:03 | disposition home or self-care (01) ==
LOC: WFO 18:59 → FBP 19:01 → WFO 23:03
PROVIDERS: ATTEND Obstetrics & Gynecology
DX: O99.343 Other mental disorders complicating pregnancy, third trimester (principal); F41.9 Anxiety disorder, unspecified; O99.513 Diseases of the respiratory system complicating pregnancy, third trimester; J45.909 Unspecified asthma, uncomplicated; O99.013 Anemia complicating pregnancy, third trimester; D50.9 Iron deficiency anemia, unspecified; O99.613 Diseases of the digestive system complicating pregnancy, third trimester; K21.9 Gastro-esophageal reflux disease without esophagitis; O99.323 Drug use complicating pregnancy, third trimester; F11.20 Opioid dependence, uncomplicated; T85.528D Displacement of other gastrointestinal prosthetic devices, implants and grafts, subsequent encounter; Z3A.35 35 weeks gestation of pregnancy
CPT/HCPCS: 36415; 71045; 81001; 85025; 94640; 96374; 99214; J7040; 87086; 99213

== ENCOUNTER 2019-02-21 18:05 | Outpatient (CLI) | payer OTHER, MEDICAID ==
[2019-02-21] MEDS ORDERED: IRON DEXTRAN 25 MG in SODIUM CHLORIDE 0.9% 50 ML IV ONE (18:15)
[2019-02-21] MEDS ORDERED: PROMETHAZINE 25 MG TABLET ONE (18:26)
[2019-02-21] MEDS ORDERED: PROMETHAZINE 25 MG TABLET PO ONE (19:00)
[2019-02-21] MEDS ORDERED: IRON DEXTRAN 975 MG in SODIUM CHLORIDE 0.9% 500 ML IV ONE (19:00)
[2019-02-21 22:14] VITALS: BP 116/67
== END 2019-02-21 22:13 | disposition home or self-care (01) ==
LOC: WFO 18:05 → FBP 18:06 → WFO 22:13
PROVIDERS: ATTEND Obstetrics & Gynecology
DX: O99.280 Endocrine, nutritional and metabolic diseases complicating pregnancy, unspecified trimester (principal); E61.1 Iron deficiency; Z3A.00 Weeks of gestation of pregnancy not specified
CPT/HCPCS: 96365; 96366; 96376; J1750; J7040; Q0169

== ENCOUNTER 2019-09-27 12:56 | Emergency (ER) | payer OTHER, MEDICAID ==
--- NOTE | 2019-09-27 13:07 | ED Physician Documentation ---
PD HPI ABD PAIN - Stated complaint Stated Complaint: POST OP COMPLICATION - Chief complaint Chief Complaint: Abd Pain - History obtained from History obtained from: Patient - History of Present Illness Timing - onset: How many weeks ago Timing - details: Gradual onset (prior umbilical hernia repair couple years ago and had pains around the abd wall/umbilical while . Has continued to hurt since and having more pain the past several days as she has been packing and some lifting in prep for moving to [facility] next week.), Still present (worse the past few days), Waxing and waning Quality: Aching, Sharp. No: Fullness/distended Location: Periumbilical Radiation: No: Chest, Lower back Improved by: No: Eating Worsened by: No: Eating Associated symptoms: Nausea. No: Fever, Vomiting, Diarrhea Similar symptoms before: Diagnosis (presumed adhesions and inflammation related to the prior mesh from hernia surgery.) Recently seen: Not recently seen Review of Systems Constitutional: denies: Fever, Chills Nose: denies: Rhinorrhea / runny nose, Congestion Throat: denies: Sore throat Respiratory: denies: Cough GI: reports: Abdominal Pain. 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 : None HEENT: None Psych: Depression, Anxiety, Panic attacks, Claustrophobia Musculoskeletal: None Derm: Psoriasis, Other - Past Surgical History Past Surgical History: Yes General: Other - Present Medications Home Medications: Ambulatory Orders Medication Instructions Recorded Confirmed Nitrofurantoin Monohyd/M-Cryst 100 mg PO BID #10 capsule 10/18/18 02/20/19 [Macrobid 100 mg Capsule] Acetaminophen [Tylenol Extra 1,000 mg PO BID 12/10/18 02/20/19 Strength] Citalopram Hydrobromide [Celexa] 20 mg PO DAILY 12/10/18 02/20/19 Esomeprazole Magnesium [Nexium] 20 mg PO DAILY 12/10/18 02/20/19 Oxycodone HCl 5 - 10 mg PO Q6H PRN #14 tablet 12/24/18 02/20/19 Albuterol Sulf [Ventolin Hfa 1 puffs INH DAILY PRN 02/20/19 02/20/19 Inhaler] Fexofenadine HCl [Linda Allergy] 180 mg PO DAILY 02/20/19 02/20/19 Gabapentin 100 mg PO BID 02/20/19 02/20/19 Meloxicam 7.5 mg PO DAILY 02/20/19 02/20/19 Metoclopramide [Reglan] 5 mg PO Q6HR PRN 02/20/19 02/20/19 raNITIdine HCL [Zantac] 150 mg PO DAILY 02/20/19 02/20/19 Docusate Sodium 100 mg PO DAILY #30 capsule 09/27/19 Lidocaine [Lidoderm] 1 each TP BID PRN #10 adh..patch 09/27/19 Naproxen 375 mg PO TID #30 tablet 09/27/19 - Allergies Allergies/Adverse Reactions: Allergies Allergy/AdvReac Type Severity Reaction Status Date / Time clindamycin Allergy Severe Hives Verified 09/27/19 13:02 Penicillins Allergy Severe Hives Verified 09/27/19 13:02 Latex, Natural Rubber Allergy Intermediate Rash Verified 09/27/19 13:02 Tetanus Vaccines and Toxoid Allergy Intermediate Hives Verified 09/27/19 13:02 [Tetanus Vaccines & Toxoid] tioconazole [From Monistat 1] Allergy Intermediate Itching Verified 09/27/19 13:02 adhesive AdvReac Rash Verified 09/27/19 13:02 monostate Allergy Intermediate Hives Uncoded 02/20/19 20:36 - Social History Does the pt smoke?: No Smoking Status: Never smoker Does the pt drink ETOH?: No Does the pt have substance abuse?: Yes - Immunizations Immunizations are current?: Yes - POLST Patient has POLST: No PD ED PE NORMAL - Vitals Vital signs reviewed: Yes - General General: Alert and oriented X 3, Well developed/nourished - HEENT HEENT: Pharynx benign - Neck Neck: Supple, no meningeal sign, No adenopathy - Cardiac Cardiac: RRR, No murmur - Respiratory Respiratory: Clear bilaterally - Abdomen Abdomen: Normal bowel sounds, Soft, Non distended, No organomegaly, Other (there is abd wall tenderness in periumbilical area, mostly to left of central. No redness, warmth, drainage.) Results - Vitals Vitals: Oxygen O2 Source Room air - Labs Labs: Microbiology 09/27/19 13:10 Urine Culture - Preliminary Urine,Clean Catch CULTURE IN PROGRESS. RESULTS TO FOLLOW. Laboratory Tests 09/27/19 09/27/19 09/27/19 13:10 13:42 13:42 WBC 5.6 RBC 3.69 L Hgb 11.6 L Hct 34.6 L MCV 93.8 MCH 31.4 H MCHC 33.5 RDW 12.8 Plt Count 179 MPV 10.3 Neut # (Auto) 2.9 Lymph # (Auto) 2.2 [place] # (Auto) 0.4 Eos # (Auto) 0.1 Baso # (Auto) 0.0 Absolute Nucleated RBC 0.00 Nucleated RBC % 0.0 Sodium 138 Potassium 3.4 L Chloride 105 Carbon Dioxide 26 Anion Gap 7.0 BUN 10 Creatinine 0.8 Estimated GFR (MDRD) 83 L Glucose 111 H Calcium 9.3 Total Bilirubin 0.2 AST 23 ALT 23 Alkaline Phosphatase 56 Total Protein 6.5 L Albumin 4.1 Globulin 2.4 Albumin/Globulin Ratio 1.7 Lipase 31 Urine Color YELLOW Urine Clarity HAZY Urine pH 7.5 Ur Specific [place] 1.020 Urine Protein NEGATIVE Urine Glucose (UA) NEGATIVE Urine Ketones NEGATIVE Urine Occult Blood NEGATIVE Urine Nitrite NEGATIVE Urine Bilirubin NEGATIVE Urine Urobilinogen 0.2 (NORMAL) Ur Leukocyte Esterase NEGATIVE Urine RBC 0-5 Urine WBC 0-3 Ur Squamous Epith Cells FEW Squamous Amorphous Sediment Few Urine Bacteria Moderate H Ur Microscopic Review INDICATED Urine Culture Comments INDICATED Urine HCG, Qual NEGATIVE - Rads (name of study) abd CT Radiology: Prelim report reviewed (umbilical mesh in place. Scant free fluid aroung that c/w inflammation. ), See rad report PD MEDICAL DECISION MAKING - ED course Complexity details: considered differential (consider some stretching of the scar material at prior [facility], but concern for new goods.), d/w patient Departure - Departure Disposition: 01 Home, Self Care Clinical Impression: Periumbilical abdominal pain Condition: Stable Record reviewed to determine appropriate education?: Yes Instructions: ED Abdominal Pain Unkn Cause Follow-Up: ROSA M PADGETT MD [Primary Care Provider] - Prescriptions: Docusate Sodium 100 mg PO DAILY #30 capsule Lidocaine [Lidoderm] 1 each TP BID PRN #10 adh..patch PRN Reason: Pain Naproxen 375 mg PO TID #30 tablet Comments: Your CT scan shows intact mesh though there is some inflammation around it. No signs of obvious recurrent hernia. No other intra-abdominal problem at this time. Incidental note of a liver hemangioma which seems stable compared to prior ultrasound. It seems likely your prior surgical area scar tissue had been stretched and now there is inflammation around the mesh causing the pain. Use some local lidocaine patches to see if they help. Also naproxen anti-inflammatory twice daily with food. To that add your pain medicine prescribed by your provider as needed. Stay well-hydrated and use a daily stool softener for easy stools. Follow-up with your primary care and general surgery as soon as you are able once moving to your new assignment area. See if the would modify the mesh or replace it to help with the persistent pains. Discharge Date/Time: 09/27/19 15:50
[2019-09-27 13:37] LABS: BILIRUBIN,URINE NEGATIVE (NEGATIVE); GLUCOSE, URINE (UA) NEGATIVE (NEGATIVE); KETONES,URINE (UA) NEGATIVE (NEGATIVE); LEUKOCYTE ESTERASE, URINE NEGATIVE (NEGATIVE); NITRITE,URINE NEGATIVE (NEGATIVE); OCCULT BLOOD,URINE NEGATIVE (NEGATIVE); PH,URINE 7.5 PH (5.0-7.5); PROTEIN,URINE NEGATIVE (NEGATIVE); UROBILINOGEN,URINE 0.2 (NORMAL) E.U./dL (NORMAL)
[2019-09-27] MEDS ORDERED: IOVERSOL 320 100 ML VIAL IVP ONE (13:38)
[2019-09-27 13:39] LABS: CLARITY,URINE HAZY (CLEAR); HCG UR QUAL NEGATIVE
[2019-09-27 13:51] LABS: BACTERIA,URINE Moderate /HPF (None Seen); RBC,URINE 0-5 /HPF (0-5); SQUAMOUS EPITHELIAL CELL,UR FEW Squamous (<= Few)
[2019-09-27 13:52] LABS: AMORPHOUS SEDIMENT,UR Few /LPF
[2019-09-27 13:57] LABS: BASOPHILS % (AUTO) 0.5 %; EOSINOPHILS # (AUTO) 0.1 10^3/uL (0.0-0.7); EOSINOPHILS % (AUTO) 1.4 %; HGB - HEMOGLOBIN 11.6 g/dL (12.0-16.0); LYMPHOCYTES # (AUTO) 2.2 10^3/uL (1.5-3.5); LYMPHOCYTES % (AUTO) 38.8 %; MEAN CORPUSCULAR HEMOGLOBIN 31.4 pg (27.0-31.0); MEAN CORPUSCULAR HGB CONC 33.5 g/dL (32.0-36.0); MEAN CORPUSCULAR VOLUME 93.8 fL (81.0-99.0); MEAN PLATELET VOLUME 10.3 fL (7.9-10.8); MONOCYTES # (AUTO) 0.4 10^3/uL (0.0-1.0); MONOCYTES % (AUTO) 7.7 %; NEUTROPHILS # (AUTO) 2.9 10^3/uL (1.5-6.6); NEUTROPHILS % (AUTO) 51.4 %; PLT - PLATELET COUNT 179 10^3/uL (130-450); RED BLOOD COUNT 3.69 10^6/uL (4.20-5.40); RED CELL DISTRIBUTION WIDTH 12.8 % (12.0-15.0); WHITE BLOOD COUNT 5.6 x10^3/uL (4.8-10.8)
[2019-09-27] MEDS: HYDROmorphone 1 MG/ML CARPUJECT IVP STA ×2 (14:06→14:48)
[2019-09-27] MEDS: SODIUM CHLORIDE 0.9% 1,000 ML IV STA (14:06)
[2019-09-27] MEDS: KETOROLAC 15 MG/ML VIAL IVP STA (14:06)
[2019-09-27] MEDS: ONDANSETRON 4 MG/2 ML VIAL IVP STA (14:06)
[2019-09-27 14:12] LABS: ALBUMIN 4.1 g/dL (3.2-5.5); ALBUMIN/GLOBULIN RATIO 1.7 (1.0-2.2); BILIRUBIN,TOTAL 0.2 mg/dL (0.2-1.0); CALCIUM 9.3 mg/dL (8.5-10.3); CREATININE 0.8 mg/dL (0.4-1.0); TOTAL PROTEIN 6.5 g/dL (6.7-8.2)
[2019-09-27] MEDS: IOVERSOL 320 100 ML VIAL IVP ONE (14:37)
--- NOTE | 2019-09-27 15:09 | CT Report ---
PROCEDURE: Abdomen/Pelvis W INDICATIONS: periumbilical pain in area prior hernia repair CONTRAST: IV CONTRAST: Optiray 320 ml: 100 PO CONTRAST: *NO PO CONTRAST TECHNIQUE: After the administration of oral and intravenous contrast, 5 mm thick sections acquired from the diap hragms to the symphysis. 5 mm thick coronal and sagittal reformats were acquired. For radiation dos e reduction, the following was used: automated exposure control, adjustment of mA and/or kV accordin g to patient size. COMPARISON: CT abdomen pelvis 12/01/2017, ultrasound of the abdomen 01/05/2019 FINDINGS: Image quality: Excellent. ABDOMEN: Lung bases: Lung bases are clear. Heart size is normal. Solid organs: There is a rounded 2.6 cm hypervascular lesion anteriorly in segment III of the liver. Liver and spleen are otherwise normal in size and enhancement. Gallbladder appears normal Biliary system is non dilated. Pancreas enhances normally. No adrenal nodules. Kidneys demonstrate normal size and enhancement, without hydronephrosis. Peritoneum and bowel: Bowel loops demonstrate normal wall thickness and caliber. No free fluid or a ir. Nodes and vessels: No retroperitoneal or mesenteric adenopathy by size criteria. Aorta and inferior vena cava are normal in size. Miscellaneous: There has been a mesh repair of an umbilical hernia. Mesh appears intact. No CT eviden ce of recurrent herniation. Trace inflammation in the midline subcutaneous periumbilical soft tissues without underlying fluid collection. PELVIS: Genitourinary: Bladder wall thickness is normal. Retroverted uterus. There are peripherally hyperva scular involuting cysts in the expected location of both ovaries. Miscellaneous: No inguinal hernias or adenopathy. Bones: No suspicious bony lesions. No vertebral body compression fractures. IMPRESSION: 1. Intact mesh umbilical hernia repair. 2. Trace adjacent inflammation is less extensive compared to prior studies, may be postsurgical seque lae. 3. 2.6 cm hypervascular segment III liver lesion. This is new compared to the prior CT scan, but rela tively stable in size compared to prior ultrasound exam and is probably benign such as focal nodular hyperplasia or hemangioma. Further evaluation with multiphasic MRI with contrast is recommended. Reviewed by: Ciara Cross MD on 09/27/2019 2:08 PM TALIA Approved by: Ciara Cross MD on 09/27/2019 2:08 PM TALIA Station ID: [id number]
[2019-09-27 16:00] VITALS: BP 135/70
== END 2019-09-27 15:50 | disposition home or self-care (01) ==
LOC: ED 12:56
DX: T85.79XA Infection and inflammatory reaction due to other internal prosthetic devices, implants and grafts, initial encounter (principal); R10.33 Periumbilical pain; R11.0 Nausea; Y83.8 Other surgical procedures as the cause of abnormal reaction of the patient, or of later complication, without mention of misadventure at the time of the procedure; D18.03 Hemangioma of intra-abdominal structures
CPT/HCPCS: 36415; 74177; 80053; 81001; 81025; 83690; 85025; 87086; 96374; 96376; 99284; J1170; Q9967; 81003

== ENCOUNTER 2019-10-08 13:38 | Emergency (ER) | payer OTHER, MEDICAID ==
[2019-10-08 13:46] VITALS: BP 147/72
[2019-10-08] MEDS ORDERED: CHERRY SYRUP 10 ML UDC PO ONE (13:56)
[2019-10-08] MEDS ORDERED: DEXAMETHASONE 10 MG/ML VIAL PO STA (13:56)
[2019-10-08] MEDS ORDERED: KETOROLAC 60 MG/2 ML VIAL IM STA (13:57)
--- NOTE | 2019-10-08 13:59 | ED Physician Documentation ---
PD HPI UPPER EXT INJURY - Stated complaint Stated Complaint: BI LAT FINGER PX - Chief complaint Chief Complaint: Ext Problem - History obtained from History obtained from: Patient - History of Present Illness Location: Right, Left, Wrist Type of injury: Other (overuse with moving) Where injury occurred: Home Timing - onset: How many weeks ago (2) Timing - duration: Weeks (2) Timing - details: Gradual onset, Still present, Waxing and waning Improved by: Rest, Ice, Immobilization Worsened by: Moving, Palpating Associated symptoms: Numbness, Tingling. No: Weakness Contributing factors: Other (moving) Similar symptoms before: Diagnosis (Carpal tunnel syndrome) Recently seen: Not recently seen - Additonal information Additional information: 33-year-old female with a history of carpal tunnel syndrome has been having some problem with her wrist since February of this year and she is now moving and during this move she has been using her arms and hands a lot and she is developed developed intolerable pain. The pain is much worse over the past hour even and she is here acutely in the emergency department in distress with pain and numbness to her hands. She has been trying to use her splints they hurt to put them on and she has been using some ice and ice packs during the day and at night. Review of Systems Constitutional: denies: Fever Eyes: denies: Decreased vision Ears: denies: Ear pain Nose: denies: Congestion Throat: denies: Sore throat Cardiac: denies: Chest pain / pressure, Palpitations Respiratory: denies: Dyspnea, Cough GI: denies: Vomiting PD PAST MEDICAL HISTORY - Past Medical History Cardiovascular: None Respiratory: Asthma Neuro: None Endocrine/Autoimmune: None GI: GERD, Other [employer]: None : None HEENT: None Psych: Depression, Anxiety, Panic attacks, Claustrophobia Musculoskeletal: None, Other Derm: Psoriasis, Other Other Past Medical History: Carpel tunnel - Past Surgical History Past Surgical History: Yes General: Other - Present Medications Home Medications: Ambulatory Orders Medication Instructions Recorded Confirmed Nitrofurantoin Monohyd/M-Cryst 100 mg PO BID #10 capsule 10/18/18 02/20/19 [Macrobid 100 mg Capsule] Acetaminophen [Tylenol Extra 1,000 mg PO BID 12/10/18 02/20/19 Strength] Citalopram Hydrobromide [Celexa] 20 mg PO DAILY 12/10/18 02/20/19 Esomeprazole Magnesium [Nexium] 20 mg PO DAILY 12/10/18 02/20/19 Oxycodone HCl 5 - 10 mg PO Q6H PRN #14 tablet 12/24/18 02/20/19 Albuterol Sulf [Ventolin Hfa 1 puffs INH DAILY PRN 02/20/19 02/20/19 Inhaler] Fexofenadine HCl [Linda Allergy] 180 mg PO DAILY 02/20/19 02/20/19 Gabapentin 100 mg PO BID 02/20/19 02/20/19 Meloxicam 7.5 mg PO DAILY 02/20/19 02/20/19 Metoclopramide [Reglan] 5 mg PO Q6HR PRN 02/20/19 02/20/19 raNITIdine HCL [Zantac] 150 mg PO DAILY 02/20/19 02/20/19 Docusate Sodium 100 mg PO DAILY #30 capsule 09/27/19 Lidocaine [Lidoderm] 1 each TP BID PRN #10 adh..patch 09/27/19 Naproxen 375 mg PO TID #30 tablet 09/27/19 Meloxicam 15 mg PO DAILY PRN #20 tablet 10/08/19 - Allergies Allergies/Adverse Reactions: Allergies Allergy/AdvReac Type Severity Reaction Status Date / Time clindamycin Allergy Severe Hives Verified 10/08/19 13:41 Penicillins Allergy Severe Hives Verified 10/08/19 13:41 Latex, Natural Rubber Allergy Intermediate Rash Verified 10/08/19 13:41 Tetanus Vaccines and Toxoid Allergy Intermediate Hives Verified 10/08/19 13:41 [Tetanus Vaccines & Toxoid] tioconazole [From Monistat 1] Allergy Intermediate Itching Verified 10/08/19 13:41 adhesive AdvReac Rash Verified 10/08/19 13:41 monostate Allergy Intermediate Hives Uncoded 02/20/19 20:36 - Social History Does the pt smoke?: No Smoking Status: Never smoker Does the pt drink ETOH?: No Does the pt have substance abuse?: Yes - Immunizations Immunizations are current?: Yes - POLST Patient has POLST: No PD ED PE NORMAL - Vitals Vital signs reviewed: Yes (Hypertensive mild) - General General: Alert and oriented X 3, Well developed/nourished, Other (anxious and in pain ) - HEENT HEENT: Atraumatic, PERRL, EOMI - Neck Neck: Supple, no meningeal sign - Respiratory Respiratory: No respiratory distress - Derm Derm: Normal color, Warm and dry, No rash - Extremities Extremities: No deformity, Other (Point tenderness over the volar aspect of the wrist bilaterally she is able to flex and extend at the wrist has pain shooting into the hand as well as numbness shooting to the hand with tapping on the median nerve.) - Neuro Neuro: Alert and oriented X 3, cooker process cheese 2-12 intact, No motor deficit, Normal speech Eye Opening: Spontaneous Motor: Obeys Commands Verbal: Oriented GCS Score: 15 - Psych Psych: Other (Mood is anxious the affect is painful) Results - Vitals Vitals: Vital Signs - 24 hr 10/08/19 13:41 Temperature 36.9 C Heart Rate 78 Respiratory 16 Rate Blood Pressure 147/72 H O2 Saturation 96 Oxygen O2 Source Room air PD MEDICAL DECISION MAKING - ED course Complexity details: considered differential, d/w patient ED course: 33-year-old female with acute exacerbation of carpal tunnel syndrome is administered dexamethasone 10 mg orally and 60 mg of Toradol IM. Departure - Departure Disposition: 01 Home, Self Care Clinical Impression: Carpal tunnel syndrome on both sides Condition: Stable Instructions: ED Carpal Tunnel Follow-Up: ROSA M PADGETT MD [Primary Care Provider] - Prescriptions: Meloxicam 15 mg PO DAILY PRN #20 tablet PRN Reason: Pain
== END 2019-10-08 14:17 | disposition home or self-care (01) ==
LOC: ED 13:38
DX: G56.03 Carpal tunnel syndrome, bilateral upper limbs (principal)
CPT/HCPCS: 96372; 99283; 99284; A9270